=== PATIENT | female | born 1945 | race Caucasian/White ===

== ENCOUNTER 2016-12-20 15:42 | Inpatient (IN) | payer OTHER ==
[2016-12-20] VITALS (11 sets, daily range): BP systolic 108–170; BP diastolic 63–96; PULSE 88–130; TEMP 37.4–39.4; O2SAT 90–99; Ht 160 cm; Wt 63.8 kg
[~2016-12-20] VITALS: Ht 160 cm; Wt 63.8 kg
[~2016-12-20 15:42] MED LIST: AMLO-110 PO; CLX20 PO; DONE5TAB9 PO; LEVO100T7 PO; OMEP20CA59 PO; PRAV40TA2 PO
--- NOTE | 2016-12-20 16:04 | DIAGNOSTIC IMAGING REPORT ---
CT HEAD WITHOUT CONTRAST (CT) CLINICAL HISTORY: Acute change in mental status COMPARISON STUDY: 08/06/2016 TECHNIQUE: Axial CT of the brain is performed from the vertex to the skull base. IV contrast was not administered for this examination. CT DOSE: 1572.52 mGy.cm FINDINGS: No intra or extra-axial mass lesions are visualized. There is no CT evidence of acute cortical infarction. There is no evidence of midline shift. There is no acute hemorrhage. No calvarial fractures are visualized. There are patchy white matter hypodensities likely on a small vessel basis. There is no evidence of pathologic ventricular dilatation. There is no evidence of acute sinusitis IMPRESSION: No acute intracranial findings Electronically signed by: William Chavez M.D. 12/20/2016 4:02 PM Dictated Date/Time: 12/20/2016 4:00 PM
--- NOTE | 2016-12-20 16:17 | EMERGENCY ROOM VISIT NOTE ---
History Report prepared by Joy: Cindy Cleveland Under the Supervision of: Dr. Ibrahima Pathak D.O. First contact with patient: 15:43 Stated Complaint: UNRESPONSIVE, SVT, SEIZURE History of Present Illness The patient is a 71 year old female who presents to the Emergency Room via EMS with complaints of persistent unresponsiveness starting 2 hours ago. The patient 's was talking to her when she started shivering, would not open her eyes, and would not communicate. She also had diaphoresis. As per EMS, the patient had a fever of 103.4. She was in SVT with 160s-170s beats per minute. On the way to the Emergency Room, she started having seizure-like activity. She was given 1 mg of Ativan en-route to the Emergency Room. She did not display any stroke-like symptoms. As per , she is a current smoker. She does not drink alcohol. She is not on any blood thinners. The patient does not have a history of seizure, stroke, or heart attack. She has a history of dementia. The patient had abdominal surgery in March 2016 for ruptured ulcer and bowel obstruction. Her family members have had cold-like symptoms for the past few days. As per , the patient is do not resuscitate and do not intubate. HPI is limited secondary to unresponsiveness. Additional history was obtained as per EMS and family members. Source of History: family, EMS History Limited By: other (unresponsiveness) Onset: 2 hours ago Position: other (global) Quality: other (unresponsiveness) Timing: other (persistent) Review of Systems ROS is limited secondary to unresponsiveness. Past Medical & Surgical Medical Problems: (1) Ambulatory dysfunction (2) Anxiety (3) Change in mental state (4) CKD (chronic kidney disease) stage 3, GFR 30-59 ml/min (5) Dementia (6) Depression (7) Dyslipidemia (8) GERD (gastroesophageal reflux disease) (9) HTN (hypertension) (10) Hypothyroidism (11) Seizure (12) sepsis (13) Wound infection Surgical Problems: (1) S/P cholecystectomy (2) S/P knee replacement Family History Cancer Social History Smoking Status: Current Every Day Smoker Alcohol Use: none Drug Use: none Marital Status: Housing Status: lives with family Occupation Status: retired Current/Historical Medications Scheduled Bupropion HCl (Bupropion HCl Xl), 300 MG PO DAILY Citalopram Hydrobromide (Citalopram Hydrobromide), 40 MG PO DAILY Docusate Sodium (Docusate Sodium), 100 MG PO BID Donepezil HCl (Aricept), 5 MG PO QAM Levothyroxine Sodium (Levothyroxine Sodium), 100 MCG PO DAILY Omeprazole (Prilosec), 20 MG PO BID Ranitidine Hcl (Zantac), 150 MG PO BID Scheduled PRN Acetaminophen (Tylenol), 1,000 MG PO Q8 PRN for Pain Allergies Coded Allergies: Codeine (Verified Allergy, Unknown, 08/25/16) Physical Exam Vital Signs Date Time Temp Pulse Resp B/P Pulse Ox O2 Delivery O2 Flow Rate FiO2 12/20/16 16:31 113 28 138/85 98 Nasal Cannula 4.0 12/20/16 16:06 131 12/20/16 16:00 39.4 125 28 152/85 99 Nasal Cannula 4.0 Physical Exam GENERAL: Patient is well appearing and in no acute distress. HEENT: No acute trauma, normocephalic atraumatic, mucous membranes moist, no nasal congestion, no scleral icterus. NECK: No stridor, no adenopathy, no meningismus, trachea is midline. LUNGS: Coarse breath sounds bilaterally. HEART: Tachycardic rate and regular rhythm. No murmurs, rubs, gallops appreciated. ABDOMEN: Soft, nontender, bowel sounds positive, no masses appreciated, no peritonitis. No splenomegaly. BACK: No midline tenderness, no CVA tenderness EXTREMITIES: Normal motion all extremities, no cyanosis, no edema. NEUROLOGIC: No acute motor or sensory deficits, no focal weakness, cranial nerves grossly intact. GCS: 7. Withdraws to pain. Does not open eyes. Moves all four extremities. 5/5 strength in all four extremities. 2+ pulses in all four extremities. SKIN: No rash, no jaundice, no diaphoresis. Medical Decision & Procedures ER Provider Diagnostic Interpretation: X ray results and stated below per my interpretation and radiologist interpretation. CT results and stated below per my review and radiologist interpretation: CHEST ONE VIEW PORTABLE CLINICAL HISTORY: Sepsis SEIZURE, UNRESPONSIVE PATIENT. COMPARISON STUDY: 07/27/2016 FINDINGS: The heart is the upper limits of normal in size. There is mild interstitial thickening. There is no lobar consolidation. There are no pleural effusions. There is a chronic deformity the right fourth rib with mild expansion anteriorly.[ IMPRESSION: 1. Mild chronic interstitial thickening 2. No evidence of focal pulmonary consolidation. Electronically signed by: William Chavez M.D. 12/20/2016 4:23 PM Dictated Date/Time: 12/20/2016 4:[address] HEAD WITHOUT CONTRAST (CT) CLINICAL HISTORY: Acute change in mental status COMPARISON STUDY: 08/06/2016 TECHNIQUE: Axial CT of the brain is performed from the vertex to the skull base. IV contrast was not administered for this examination. CT DOSE: 1572.52 mGy.cm FINDINGS: No intra or extra-axial mass lesions are visualized. There is no CT evidence of acute cortical infarction. There is no evidence of midline shift. There is no acute hemorrhage. No calvarial fractures are visualized. There are patchy white matter hypodensities likely on a small vessel basis. There is no evidence of pathologic ventricular dilatation. There is no evidence of acute sinusitis IMPRESSION: No acute intracranial findings Electronically signed by: William Chavez M.D. 12/20/2016 4:02 PM Dictated Date/Time: 12/20/2016 4:00 PM Laboratory Results 12/20/16 16:05 Red Blood Count 4.18, Mean Corpuscular Volume 87.3, Mean Corpuscular Hemoglobin 29.9, Mean Corpuscular Hemoglobin Concent 34.2, Mean Platelet Volume 10.3, Neutrophils (%) (Auto) 88.6, Lymphocytes (%) (Auto) 8.6, Monocytes (%) (Auto) 2.2, Eosinophils (%) (Auto) 0.0, Basophils (%) (Auto) 0.3, Neutrophils # (Auto) 9.19, Lymphocytes # (Auto) 0.89, Monocytes # (Auto) 0.23, Eosinophils # (Auto) 0.00, Basophils # (Auto) 0.03 12/20/16 16:05 Test 12/20/16 15:59 12/20/16 16:05 12/20/16 16:10 12/20/16 16:14 White Blood Count 10.37 K/uL (4.8-10.8) Red Blood Count 4.18 M/uL (4.2-5.4) Hemoglobin 12.5 g/dL (12.0-16.0) Hematocrit 36.5 % (37-47) Mean Corpuscular Volume 87.3 fL (80-100) Mean Corpuscular Hemoglobin 29.9 pg (25-34) Mean Corpuscular Hemoglobin Concent 34.2 g/dl (32-36) Platelet Count 297 K/uL (130-400) Mean Platelet Volume 10.3 fL (7.4-10.4) Neutrophils (%) (Auto) 88.6 % Lymphocytes (%) (Auto) 8.6 % Monocytes (%) (Auto) 2.2 % Eosinophils (%) (Auto) 0.0 % Basophils (%) (Auto) 0.3 % Neutrophils # (Auto) 9.19 K/uL (1.4-6.5) Lymphocytes # (Auto) 0.89 K/uL (1.2-3.4) Monocytes # (Auto) 0.23 K/uL (0.11-0.59) Eosinophils # (Auto) 0.00 K/uL (0-0.5) Basophils # (Auto) 0.03 K/uL (0-0.2) RDW Standard Deviation 44.6 fL (36.4-46.3) RDW Coefficient of Variation 13.9 % (11.5-14.5) Immature Granulocyte % (Auto) 0.3 % Immature Granulocyte # (Auto) 0.03 K/uL (0.00-0.02) Erythrocyte Sedimentation Rate 26 mm/hr (0-21) Anion Gap 13.0 mmol/L (3-11) Estimated GFR () 39.6 Estimated GFR (Non- 34.2 BUN/Creatinine Ratio 14.9 (10-20) Calcium Level 9.6 mg/dl (8.5-10.1) Phosphorus Level 3.0 mg/dl (2.5-4.9) Magnesium Level 1.8 mg/dl (1.8-2.4) Total Bilirubin 0.4 mg/dl (0.2-1) Aspartate Amino Transf (AST/SGOT) 15 U/L (15-37) Alanine Aminotransferase (ALT/SGPT) 16 U/L (12-78) Alkaline Phosphatase 103 U/L (45-117) Total Creatine Kinase 32 U/L (26-192) Creatine Kinase MB 0.6 ng/ml (0.5-3.6) Creatine Kinase MB Ratio 1.9 (0-3.0) Troponin I 0.163 ng/ml (0-0.045) C-Reactive Protein < 0.29 mg/dl (0-0.29) Pro-B-Type Natriuretic Peptide 500 pg/ml (0-900) Total Protein 7.0 gm/dl (6.4-8.2) Albumin 3.5 gm/dl (3.4-5.0) Globulin 3.5 gm/dl (2.5-4.0) Albumin/Globulin Ratio 1.0 (0.9-2) Amylase Level 44 U/L (25-115) Lipase 108 U/L (73-393) Bedside Glucose 109 mg/dl (70-90) Bedside Lactic Acid Venous 3.57 mmol/L (0.90-1.70) Test 12/20/16 16:30 12/20/16 16:32 Influenza Type A Antigen Neg for Influ A (NEG) Influenza Type B Antigen Neg for Influ B (NEG) Arterial Blood pH 7.45 (7.35-7.45) Arterial Blood Partial Pressure CO2 35 mmHg (35-46) Arterial Blood Partial Pressure O2 56 mm/Hg (80-95) Arterial Blood HCO3 23 mmol/L (19-24) Arterial Blood Oxygen Saturation 88.7 % (90-95) Arterial Blood Base Excess -0.2 mEq/L (-9-1.8) Arterial Blood Gas Delivery 3L Michael Test POS (POS) Laboratory results as reviewed by me. Medications Administered Medications (Trade) Dose Ordered Sig/Aminata Route Start Time Stop Time Status Last Admin Dose Admin Piperacillin Sod/ Tazobactam Sod (Zosyn Iv) 4.5 gm STK-MED ONCE .ROUTE 12/20/16 16:50 12/20/16 16:51 DC 12/20/16 16:55 4.5 GM Procedure With questionable seizure, she is not a candidate for tPA. ECG Indication: other (unresponsiveness) Rate (beats per minute): 111 Findings: ST depression (v4-v6), other (Nonspecific intraventricular conduction delay; septal infarct age undetermined) Comparison ECG Date: August 25, 2016 Change: ST depression in lateral leads, sinus tachycardia, and septal infarct are new when compared to August 25, 2016. ED Course 1543: The patient was evaluated in room A01. A complete history and physical exam was performed. With questionable seizure, she is not a candidate for tPA. 1629: I discussed the patient's case with Dr. Edgar, sales development specialist from [facility]. 1631: Upon reevaluation, the patient is stable. Discussed results and treatment plan with the patient's family. They verbalized understanding and agreement with the treatment plan. I discussed the patient's case with Dr. Silva, from [facility]. The patient will be evaluated for further management. 1639: Zosyn IV 4.5 gm IV 1645: Azithromycin 500 mg/Dextrose 255 ml @ 125 mls/hr IV Medical Decision Differential diagnosis: Etiologies such as sepsis, UTI, pneumonia, metabolic, electrolyte abnormalities , cardiac sources, intracerebral event, toxicologic, neurologic, infection, hypoglycemia, as well as others were entertained. Patient is 71-year-old female with significant past medical history of dementia , hypothyroidism, ruptured gastrointestinal bleeding requiring exploratory laparotomy and gram patch oversewing. Today the patient had increasing lethargy and altered mental status per the , when he was finally unable to get any response from her he called EMS. Additional history from EMS: Upon arrival she was found to have a temperature of 103, and rigors. As a tank truck loader onto the stretcher when taking out to the ambulance she developed an SVT going from a normal sinus rhythm on the monitor in the 70s up to neural complex tachycardia of 170 180. As a flat finisher was attempting to obtain some adenosine the patient became rigid and had tonic-clonic like activity. This converted her from a narrow complex tachycardia rate of 170 is 180s down to a rate of the 120s which further appear to be a sinus tachycardia. 1 mg of Ativan was administered as the patient continued to clench her teeth, and there was loss of bladder control. Additional history from the she does not have a history of strokes, cardiac disease, nor seizures. In discussion with the patient's and the patient's son in event of cardiac arrest she would not want to be intubated nor undergo heroic measures for resuscitation. Accordingly have placed CODE STATUS is DNR/DNI. I discussed the risks and benefits of central venous access and arterial line in the patient with the patient's . He is agreeable to these risks and would allow a central line and arterial line. I have also discussed the risks and benefits of blood transfusions and she would be willing to accept blood in event she needs it. Upon arrival in the emergency department she would withdraw to pain and was making audible sounds. GCS 1 for eyes, motor 4, verbal 2 total 7. I obtained an emergent CT scan of the head, per my interpretation there was no obvious intra-cranial bleeding. She would not be a candidate for TPA given the seizure immediately prior. Further I do not believe that this is related to a stroke given that she has a fever most likely working diagnosis is sepsis. At this point she is receiving a 30 mL/kg bolus of normal saline, I am starting her on Zosyn 4.5 g IV for possible intra-abdominal process given the history of intra- abdominal abscess and wound infection following the bleeding gastric ulcer. Vancomycin 1.25 g (20 mg/kg load) given the history of a MRSA wound infection, and azithromycin 500 mg for possible atypical pneumonia. I reviewed a chest x- ray and EKG. At this case with Dr. Emery the desk pen set assembler as well as Dr. Sands hospitalist of the [facility] service. She does not appear to be at risk for healthcare associated infection, last time she was in the hospital and was reportedly back in August. I did not use a fluoroquinolone as I can lower the seizure threshold, I feel we are stuck using Zosyn given the concern for possible intra-abdominal process. At this point I am waiting for a creatinine to see if I can proceed with a contrasted scan of the abdomen. My review of prior records she has chronic kidney disease stage III. Consults Time Called: 1630 Consulting Physician: Dr. Silva, from [facility] Returned Call: [phone] I discussed the patient's case with Dr. Silva, from [facility]. Additional Consults: Time Called: 1622 Consulted Physician: Dr. Edgar, sales development specialist from [facility] Returned Call: [phone] Additional Comments: I discussed the patient's case with Dr. Edgar, sales development specialist from [facility]. Impression Primary Impression: Severe sepsis with acute organ dysfunction Additional Impressions: Encephalopathy acute Lactic acidemia Febrile disorder Febrile seizure Critical Care I have personally spent 45 minutes of critical care time in the direct management of this patient. This is a life/limb threatening event. This includes time spent evaluating patient, direct bedside care, chart review, placing orders, interpretation of diagnostic studies, discussion with consultants, patient, and family members, as well as other required patient management activities. This time is exclusive of all separately billable procedures, and teaching time and separate from and in addition to any other critical care service time. Scribe Attestation The scribes documentation has been prepared under my direction and personally reviewed by me in its entirety. I confirm that the note above accurately reflects all work, treatment, procedures, and medical decision making performed by me. Departure Information Dispostion Being Evaluated By Hospitalist Art Rascon M.D. (PCP) Problem Qualifiers
--- NOTE | 2016-12-20 16:24 | DIAGNOSTIC IMAGING REPORT ---
CHEST ONE VIEW PORTABLE CLINICAL HISTORY: Sepsis SEIZURE, UNRESPONSIVE PATIENT. COMPARISON STUDY: 07/27/2016 FINDINGS: The heart is the upper limits of normal in size. There is mild interstitial thickening. There is no lobar consolidation. There are no pleural effusions. There is a chronic deformity the right fourth rib with mild expansion anteriorly.[ IMPRESSION: 1. Mild chronic interstitial thickening 2. No evidence of focal pulmonary consolidation. Electronically signed by: William Chavez M.D. 12/20/2016 4:23 PM Dictated Date/Time: 12/20/2016 4:22 PM
[2016-12-20] MEDS ORDERED: PIPERACILLIN/TAZOBACTAM 4.5 GM/100ML D5W IV STA (16:39)
[2016-12-20 16:45] LABS: ARTERIAL BLD GAS O2 SATURATION 88.7 % (90-95); ARTERIAL BLOOD GAS BASE EXCESS -0.2 mEq/L (-9-1.8); ARTERIAL BLOOD GAS HCO3 23 mmol/L (19-24); ARTERIAL BLOOD GAS PO2 56 mm/Hg (80-95); ARTERIAL BLOOD GAS pH 7.45 (7.35-7.45)
[2016-12-20] MEDS ORDERED: LORAZEPAM 2 MG/ML 1 ML VIAL IV PRN (16:45)
[2016-12-20] MEDS ORDERED: ALBUT/IPRATROP 3MG/0.5MG NEB 3 ML VIAL INH PRN (16:45)
[2016-12-20] MEDS ORDERED: RANI150T3 PO (16:48)
[2016-12-20] MEDS ORDERED: CITA40TA4 PO (16:48)
[2016-12-20 16:50] LABS: ALLEN TEST POS (POS)
[2016-12-20] MEDS ORDERED: PIPERACILLIN/TAZOBACTAM 4.5 GM/100ML D5W ONE (16:50)
[2016-12-20] MEDS ORDERED: WLLXL300 PO (16:52)
[2016-12-20] MEDS ORDERED: DOCU100C31 PO (16:53)
[2016-12-20 16:55] LABS: O2 ADMINISTRATION 3L
[2016-12-20 16:58] LABS: BASO % 0.3 %; BASO ABS # 0.03 K/uL (0-0.2); COMPLETE YES; HEMATOCRIT 36.5 % (37-47); IG% 0.3 %; LYMPH % 8.6 %; LYMPH ABS # 0.89 K/uL (1.2-3.4); MEAN CELL VOLUME 87.3 fL (80-100); MEAN CORPUSCULAR HEMOGLOBIN 29.9 pg (25-34); MEAN CORPUSCULAR HGB CONC 34.2 g/dl (32-36); MEAN PLATELET VOLUME 10.3 fL (7.4-10.4); MONO % 2.2 %; NEUT % 88.6 %; PLATELET COUNT 297 K/uL (130-400); RED BLOOD COUNT 4.18 M/uL (4.2-5.4); WHITE BLOOD COUNT 10.37 K/uL (4.8-10.8)
[2016-12-20] MEDS ORDERED: ACET-1256 PO (17:02)
[2016-12-20 17:03] LABS: ALT/SGPT 16 U/L (12-78); AMYLASE 44 U/L (25-115); BLOOD UREA NITROGEN 22 mg/dl (7-18); BUN/CREATININE RATIO 14.9 (10-20); C-REACTIVE PROTEIN < 0.29 mg/dl (0-0.29); CALCIUM 9.6 mg/dl (8.5-10.1); CARBON DIOXIDE 22 mmol/L (21-32); CHLORIDE 105 mmol/L (98-107); GLUCOSE 104 mg/dl (70-99); MAGNESIUM 1.8 mg/dl (1.8-2.4); POTASSIUM 4.3 mmol/L (3.5-5.1); SODIUM 140 mmol/L (136-145)
[2016-12-20 17:10] LABS: URINE APPEARANCE CLEAR (CLEAR); URINE BILIRUBIN NEG (NEG); URINE COLOR YELLOW; URINE EPITHELIAL CELL AUTO 20-30 /lpf (0-5); URINE NITRITE NEG (NEG); URINE PH 7.5 (4.5-7.5); URINE SPECIFIC GRAVITY 1.018 (1.000-1.030); UROBILINOGEN NEG (NEG); ZZUR CULT IF INDIC CLEAN CATCH YES
[2016-12-20 17:12] LABS: ALKALINE PHOSPHATASE 103 U/L (45-117); AST/SGOT 15 U/L (15-37); CKMB/CK RATIO 1.9 (0-3.0)
[2016-12-20 17:14] LABS: PARTIAL THROMBOPLASTIN RATIO 0.7; PROTHROMBIN TIME (PATIENT) 10.5 SECONDS (9.0-12.0)
[2016-12-20] MEDS ORDERED: VANCOMYCIN INJ 1,250 MG in SODIUM CHLORIDE 0.9% 250ML 250 ML IV ONE (17:15)
--- NOTE | 2016-12-20 17:26 | History and Physical ---
History & Physical Date & Time of Service: Dec 20, 2016 at 17:26 Chief Complaint: Unresponsive, Svt, Seizure Primary Care Physician: Art Joshi M.D. History of Present Illness Source: family, hospital records, EMS 71 YO F with past medical Hx of Dementia , CKD stage 3 brought to ED -with seizure like activity History obtained form ER attending and Family members as pt was unable to provide any meaningful information due to changed mental status Pt was found to be unresponsive at Home by , was Febrile having chills and rigor EMS was called , pt was found to be in SVT -later developed seizure , IV Ativan was given pt remained obtunded in ED tachycardic, temp 39.4 Lab showed : mild elevation of ESR normal white count , Lactic acid of ~3 Cr 1.5 after transfer to ICU pt woke up moving all limbs , remains confused , unable to verbalize any discomfort Past Medical/Surgical History Medical Problems: (1) Anxiety Status: Chronic (2) CKD (chronic kidney disease) stage 3, GFR 30-59 ml/min Status: Chronic (3) Dementia Status: Chronic (4) Depression Status: Chronic (5) Dyslipidemia Status: Chronic (6) GERD (gastroesophageal reflux disease) Status: Chronic (7) HTN (hypertension) Status: Chronic (8) Hypothyroidism Status: Chronic Surgical Problems: (1) S/P cholecystectomy Status: Resolved (2) S/P knee replacement Status: Resolved Family History Cancer Blood Disorder Father Cancer Maternal Grandmother pancreatic ca Heart Disorder Mother VT 70 Lung Disorder Father emphysema Renal Hx Father Thyroid Disorder Mother Social History Smoking Status: Current Every Day Smoker Drug Use: none Marital Status: Housing status: lives with significant other Occupational Status: retired Immunizations History of Influenza Vaccine: No History of Tetanus Vaccine?: No History of Pneumococcal: Yes Pneumococcal Date: May 17, 2008 History of Hepatitis B Vaccine: No Multi-Drug Resistant Organisms History of MDRO: Yes Type of MDRO: MRSA Allergies Coded Allergies: Codeine (Verified Allergy, Unknown, 08/25/16) Home Medications Scheduled Bupropion HCl (Bupropion HCl Xl), 300 MG PO DAILY Citalopram Hydrobromide (Citalopram Hydrobromide), 40 MG PO DAILY Docusate Sodium (Docusate Sodium), 100 MG PO BID Donepezil HCl (Aricept), 5 MG PO QAM Levothyroxine Sodium (Levothyroxine Sodium), 100 MCG PO DAILY Omeprazole (Prilosec), 20 MG PO BID Ranitidine Hcl (Zantac), 150 MG PO BID Scheduled PRN Acetaminophen (Tylenol), 1,000 MG PO Q8 PRN for Pain Review of Systems UNABLE TO OBTAINED pt remains obtunded Physical Exam Vital Signs Date Time Temp Pulse Resp B/P Pulse Ox O2 Delivery O2 Flow Rate FiO2 12/20/16 16:31 113 28 138/85 98 Nasal Cannula 4.0 12/20/16 16:06 131 12/20/16 16:00 39.4 125 28 152/85 99 Nasal Cannula 4.0 General Appearance: + pertinent finding (confused , moving all limbs ) Head: normocephalic, atraumatic Respiratory/Chest: lungs clear, no respiratory distress Cardiovascular: + tachycardia Abdomen/GI: soft Extremities/Musculoskelatal: no pedal edema Neurologic/Psych: + disoriented, + pertinent finding (confused, agitated ) Diagnostics Laboratory Results Results Past 24 Hours Test 12/20/16 15:59 12/20/16 16:05 12/20/16 16:10 12/20/16 16:14 Range/Units White Blood Count 10.37 4.8-10.8 K/uL Red Blood Count 4.18 4.2-5.4 M/uL Hemoglobin 12.5 12.0-16.0 g/dL Hematocrit 36.5 37-47 % Mean Corpuscular Volume 87.3 80-100 fL Mean Corpuscular Hemoglobin 29.9 25-34 pg Mean Corpuscular Hemoglobin Concent 34.2 32-36 g/dl Platelet Count 297 130-400 K/uL Mean Platelet Volume 10.3 7.4-10.4 fL Neutrophils (%) (Auto) 88.6 % Lymphocytes (%) (Auto) 8.6 % Monocytes (%) (Auto) 2.2 % Eosinophils (%) (Auto) 0.0 % Basophils (%) (Auto) 0.3 % Neutrophils # (Auto) 9.19 1.4-6.5 K/uL Lymphocytes # (Auto) 0.89 1.2-3.4 K/uL Monocytes # (Auto) 0.23 0.11-0.59 K/uL Eosinophils # (Auto) 0.00 0-0.5 K/uL Basophils # (Auto) 0.03 0-0.2 K/uL RDW Standard Deviation 44.6 36.4-46.3 fL RDW Coefficient of Variation 13.9 11.5-14.5 % Immature Granulocyte % (Auto) 0.3 % Immature Granulocyte # (Auto) 0.03 0.00-0.02 K/uL Erythrocyte Sedimentation Rate 26 0-21 mm/hr Sodium Level 140 136-145 mmol/L Potassium Level 4.3 3.5-5.1 mmol/L Chloride Level 105 98-107 mmol/L Carbon Dioxide Level 22 21-32 mmol/L Anion Gap 13.0 3-11 mmol/L Blood Urea Nitrogen 22 7-18 mg/dl Creatinine 1.50 0.60-1.20 mg/dl Estimated GFR () 39.6 Estimated GFR (Non- 34.2 BUN/Creatinine Ratio 14.9 10-20 Random Glucose 104 70-99 mg/dl Calcium Level 9.6 8.5-10.1 mg/dl Phosphorus Level 3.0 2.5-4.9 mg/dl Magnesium Level 1.8 1.8-2.4 mg/dl Total Bilirubin 0.4 0.2-1 mg/dl Aspartate Amino Transf (AST/SGOT) 15 15-37 U/L Alanine Aminotransferase (ALT/SGPT) 16 12-78 U/L Alkaline Phosphatase 103 45-117 U/L Total Creatine Kinase 32 26-192 U/L Creatine Kinase MB 0.6 0.5-3.6 ng/ml Creatine Kinase MB Ratio 1.9 0-3.0 Troponin I 0.163 0-0.045 ng/ml C-Reactive Protein < 0.29 0-0.29 mg/dl Pro-B-Type Natriuretic Peptide 500 0-900 pg/ml Total Protein 7.0 6.4-8.2 gm/dl Albumin 3.5 3.4-5.0 gm/dl Globulin 3.5 2.5-4.0 gm/dl Albumin/Globulin Ratio 1.0 0.9-2 Amylase Level 44 25-115 U/L Lipase 108 73-393 U/L Bedside Glucose 109 70-90 mg/dl Bedside Lactic Acid Venous 3.57 0.90-1.70 mmol/L Test 12/20/16 16:30 12/20/16 16:32 Range/Units Influenza Type A Antigen Neg for Influ A NEG Influenza Type B Antigen Neg for Influ B NEG Arterial Blood pH 7.45 7.35-7.45 Arterial Blood Partial Pressure CO2 35 35-46 mmHg Arterial Blood Partial Pressure O2 56 80-95 mm/Hg Arterial Blood HCO3 23 19-24 mmol/L Arterial Blood Oxygen Saturation 88.7 90-95 % Arterial Blood Base Excess -0.2 -9-1.8 mEq/L Arterial Blood Gas Delivery 3L Michael Test POS POS Microbiology Results 12/20/16 Blood Culture, Received Pending 12/20/16 Blood Culture, Received Pending 12/20/16 MRSA DNA Surveillance Screen, Annabel Batch Pending 12/20/16 Gram Stain, Annabel Batch Pending 12/20/16 Sputum Culture, Annabel Batch Pending 12/20/16 Urine Culture, Annabel Batch Pending Diagnostic Radiology CT HEAD WITHOUT CONTRAST (CT) CLINICAL HISTORY: Acute change in mental status COMPARISON STUDY: 08/06/2016 TECHNIQUE: Axial CT of the brain is performed from the vertex to the skull IMPRESSION: No acute intracranial findings CHEST ONE VIEW PORTABLE CLINICAL HISTORY: Sepsis SEIZURE, UNRESPONSIVE PATIENT. COMPARISON STUDY: 07/27/2016 FINDINGS: The heart is the upper limits of normal in size. There is mild interstitial thickening. There is no lobar consolidation. There are no pleural effusions. There is a chronic deformity the right fourth rib with mild expansion anteriorly.[ IMPRESSION: 1. Mild chronic interstitial thickening 2. No evidence of focal pulmonary consolidation. Impression Assessment and Plan ALTERED MENTAL STATUS /QUESTIONABLE SEIZURE not sure of the etiology pt has baseline dementia -as per family was Ok yesterday evening no sick contact at home -CT head negative for CVA need to R/o infectious cause LP will be performed by Service Agent in ICU EEG ordered Neurology eval requested cont to monitor FEVER : blood /urine culture ordered UA -moderate leukocyte esterase follow lumber puncture report Flu Ag and PCR negative for Influenza A and B empiric Abx vancomycin /Zithromax ordered by Service Agent HX OF DEMENTIA presents with acute change in mental status possible metabolic encephalopathy due to infection need to R/O Sz KAT ON CKD STAGE 3 : due to dehydration , infection IVF follow PRP avoid Nephrotoxins /NSAIDS /contrast studies FULL CODE DISPOSITION : lives at home with family will need PT/OT eval when medically stable Patient will be followed by Dr Savage moy tomorrow 12/21/16 VTE Prophylaxis VTE Risk Assessment Done? Y/N: Yes Risk Level: Moderate
[2016-12-20] MEDS ORDERED: LORAZEPAM INJ 1 MG in SYRINGE 0.5 ML IV PRN (17:30)
[2016-12-20 17:32] LABS: MANUAL MICROSCOPIC REQUIRED? NO; REVIEW REQ? NO; SULFASALICYLIC ACID NEG (NEG)
[2016-12-20] MEDS ORDERED: MIDAZOLAM HCL 1 MG/ML 2ML VIAL ONE (17:45)
[2016-12-20] MEDS ORDERED: MIDAZOLAM HCL 5 MG/ML 1 ML VIAL IV PRN (17:45)
[2016-12-20] MEDS ORDERED: LIDOCAINE HCL 1% 20 ML VIAL ONE (18:00)
[2016-12-20 18:13] LABS: INFLUENZA A PCR Neg for Influ A (NEG); INFLUENZA B PCR Neg for Influ B (NEG)
[2016-12-20] MEDS ORDERED: AZITHROMYCIN IV 500 MG in DEXTROSE 5% 250ML 250 ML IV ONE (18:30)
--- NOTE | 2016-12-20 18:52 | Critical Care Consultation ---
Critical Care Consultation Date of Consultation: Dec 20, 2016. Attending Physician: Rich Wan MD Reason for Consultation: sepsis. History of Present Illness Dear Dr. Silva: Thank you for your kind referral of this 71 yo female to the critical care service. she has been living with her who noticed today that she was unresponsive to his verbal commands, he called the EMS and brought her to the ED. the pt does not give any hx due to advanced dementia. in the ED, the pt was in SVt and she did have seizure like activity , the pt is not known to have hx of seizure but has a hx of tremor. the pt also was found to have a fever up to 103 and elevated lactic acid, she was started on IVF and broad spec abx. the pt was admitted to the ICu , however, in discussion with the family the pt wishes were DNR and DNI and the family confirmed it and they do not want to reverse it. they do not wish to have a Dc shock should she go to another episode of SVT. according to the family she has been having occasional cough, not unusual to her and no NV although she did vomit in the ICU once. no diarrhea reported, no abdominal pain, and she had poor appetite to begin with. the rest of her ROS was unremarkable. Past Medical/Surgical History CKD III, advanced Dementia, HTN, HLP, GERD with perforated ulcer , s/p surgical repair in March 2016, DJD s/p lumbar fusion , TKR, Hypothyroidism , active smoker and severe left artery stenosis. Family History Cancer Social History Smoking Status: Current Every Day Smoker Drug Use: none Marital Status: Housing Status: lives with family Occupation Status: retired Allergies Coded Allergies: Codeine (Verified Allergy, Unknown, 08/25/16) Home Medications Scheduled Bupropion HCl (Bupropion HCl Xl), 300 MG PO DAILY Citalopram Hydrobromide (Citalopram Hydrobromide), 40 MG PO DAILY Docusate Sodium (Docusate Sodium), 100 MG PO BID Donepezil HCl (Aricept), 5 MG PO QAM Levothyroxine Sodium (Levothyroxine Sodium), 100 MCG PO DAILY Omeprazole (Prilosec), 20 MG PO BID Ranitidine Hcl (Zantac), 150 MG PO BID Scheduled PRN Acetaminophen (Tylenol), 1,000 MG PO Q8 PRN for Pain Current Inpatient Medications Current Inpatient Medications Medications (Trade) Dose Ordered Sig/Amniata Route Start Time Stop Time Status Last Admin Dose Admin Lorazepam 1 mg 1 mg Q15M PRN IV 12/20/16 16:45 01/19/17 16:44 Pantoprazole Sodium/Syringe (Protonix Inj/ Syringe) 10 ml @ 5 mls/min DAILY@1100 IV 12/21/16 11:00 01/20/17 10:59 Albuterol/ Ipratropium 3 ml 3 ml Q4 PRN INH 12/20/16 16:45 01/19/17 16:44 Azithromycin 500 mg/Dextrose 255 ml @ 125 mls/hr ONE ONCE IV 12/20/16 18:30 12/20/16 20:32 12/20/16 18:10 125 MLS/HR Vancomycin HCl 1250 mg/Sodium Chloride 275 ml @ 125 mls/hr 1715 ONCE IV 12/20/16 17:15 12/20/16 19:26 12/20/16 18:09 125 MLS/HR Lorazepam/Syringe (Ativan Inj/ Syringe) 1 ml @ 1 mls/min Q15M PRN IV 12/20/16 17:30 01/19/17 17:29 Midazolam HCl (Versed Inj) 2 mg ONE PRN IV 12/20/16 17:45 12/22/16 17:44 Review of Systems Constitutional: + fever Respiratory: + cough Cardiovascular: + problem reported (no chest pain) Abdomen: + problem reported (no GI symptoms except one episode og cough. ), + vomiting Neurologic: + memory loss Psychiatric: + depression symptoms Physical Exam Date Time Temp Pulse Resp B/P Pulse Ox O2 Delivery O2 Flow Rate FiO2 12/20/16 17:51 39.2 104 21 170/76 98 Nasal Cannula 2.0 12/20/16 16:31 113 28 138/85 98 Nasal Cannula 4.0 12/20/16 16:06 131 12/20/16 16:00 39.4 125 28 152/85 99 Nasal Cannula 4.0 General Appearance: no apparent distress Head: normocephalic Eyes: normal inspection ENT: normal ENT inspection Respiratory/Chest: chest non-tender, lungs clear, normal breath sounds Cardiovascular: regular rate, rhythm Abdomen/GI: normal bowel sounds Extremities/Musculoskelatal: no pedal edema Laboratory Results Last 24 Hours Test 12/20/16 16:05 12/20/16 16:10 12/20/16 16:14 12/20/16 16:30 White Blood Count 10.37 K/uL Red Blood Count 4.18 M/uL Hemoglobin 12.5 g/dL Hematocrit 36.5 % Mean Corpuscular Volume 87.3 fL Mean Corpuscular Hemoglobin 29.9 pg Mean Corpuscular Hemoglobin Concent 34.2 g/dl Platelet Count 297 K/uL Mean Platelet Volume 10.3 fL Neutrophils (%) (Auto) 88.6 % Lymphocytes (%) (Auto) 8.6 % Monocytes (%) (Auto) 2.2 % Eosinophils (%) (Auto) 0.0 % Basophils (%) (Auto) 0.3 % Neutrophils # (Auto) 9.19 K/uL Lymphocytes # (Auto) 0.89 K/uL Monocytes # (Auto) 0.23 K/uL Eosinophils # (Auto) 0.00 K/uL Basophils # (Auto) 0.03 K/uL RDW Standard Deviation 44.6 fL RDW Coefficient of Variation 13.9 % Immature Granulocyte % (Auto) 0.3 % Immature Granulocyte # (Auto) 0.03 K/uL Erythrocyte Sedimentation Rate 26 mm/hr Prothrombin Time 10.5 SECONDS Prothromb Time International Ratio 1.0 Activated Partial Thromboplast Time 18.1 SECONDS Partial Thromboplastin Ratio 0.7 Sodium Level 140 mmol/L Potassium Level 4.3 mmol/L Chloride Level 105 mmol/L Carbon Dioxide Level 22 mmol/L Anion Gap 13.0 mmol/L Blood Urea Nitrogen 22 mg/dl Creatinine 1.50 mg/dl Estimated GFR () 39.6 Estimated GFR (Non- 34.2 BUN/Creatinine Ratio 14.9 Random Glucose 104 mg/dl Calcium Level 9.6 mg/dl Phosphorus Level 3.0 mg/dl Magnesium Level 1.8 mg/dl Total Bilirubin 0.4 mg/dl Aspartate Amino Transf (AST/SGOT) 15 U/L Alanine Aminotransferase (ALT/SGPT) 16 U/L Alkaline Phosphatase 103 U/L Total Creatine Kinase 32 U/L Creatine Kinase MB 0.6 ng/ml Creatine Kinase MB Ratio 1.9 Troponin I 0.163 ng/ml C-Reactive Protein < 0.29 mg/dl Pro-B-Type Natriuretic Peptide 500 pg/ml Total Protein 7.0 gm/dl Albumin 3.5 gm/dl Globulin 3.5 gm/dl Albumin/Globulin Ratio 1.0 Amylase Level 44 U/L Lipase 108 U/L Procalcitonin < 0.05 ng/mL Bedside Glucose 109 mg/dl Bedside Lactic Acid Venous 3.57 mmol/L Urine Color YELLOW Urine Appearance CLEAR Urine pH 7.5 Urine Specific [place] 1.018 Urine Protein NEG Urine Glucose (UA) NEG Urine Ketones NEG Urine Occult Blood NEG Urine Nitrite NEG Urine Bilirubin NEG Urine Urobilinogen NEG Urine Leukocyte Esterase MODERATE Urine WBC (Auto) >30 /hpf Urine RBC (Auto) 0-4 /hpf Urine Hyaline Casts (Auto) 10-30 /lpf Urine Epithelial Cells (Auto) 20-30 /lpf Urine Bacteria (Auto) NEG Influenza Type A (RT-PCR) Neg for Influ A Influenza Type A Antigen Neg for Influ A Influenza Type B Antigen Neg for Influ B Influenza Type B (RT-PCR) Neg for Influ B Test 12/20/16 16:32 Arterial Blood pH 7.45 Arterial Blood Partial Pressure CO2 35 mmHg Arterial Blood Partial Pressure O2 56 mm/Hg Arterial Blood HCO3 23 mmol/L Arterial Blood Oxygen Saturation 88.7 % Arterial Blood Base Excess -0.2 mEq/L Arterial Blood Gas Delivery 3L Michael Test POS Diagnostic Results CXR reviewed showing old rib fracture on the right. no infiltrate, chronic changes likely COPD with hyperinflated lungs. other labs are still pending. Assessment & Plan #1 sepsis, source is [place]. viral syndrome is highly likely given normal WBC , but left shift presented, UA is pending and CXR could blossom an infiltrate once the pt is hydrated. Ischemic colitis is less likely, however, the pt is active smoker and has renal artery stenosis and she is most certainly has abnormal splanchnic circulation. #2 severe dementia precluding aggressive procedures, LP was attempted but it is near impossible to perform without aggressive sedation , given lido topical and 2 mg of versed and unable to control the pt agitation. #3 HTN. #4 possible acute bronchitis rather than pneumonia, I will hydrate the pt then repeat the CXR in am. #5 CKD III. #6 active smoker. #7 Deprssion on Bupropion ( which can cause fever with serotonin release). Plan: #1 broad spec Abx. agree with your management. #2 IVF. saline at 100 ml/hr should be adequate. #3 as mentioned above , LP was attempted and failed due to the pt extreme agitation . #4 the pt is DNR and DNI. #5 she has two peripheral IV's and I will hold off on placing CVL, given the difficulty performing procedure due to severe dementia and incooperation. #6 continue current meds. #7 watch her fever curve. #8 the urine just returned positive sediment. ( Zosyn should be adequate to control it). #9 watch her renal function given the TRIP on the left. #10 prophylaxis. #11 repeat CXR in am. discussed with the family in details. discussed with the staff in details. CCT 90 min including all the above.
[2016-12-20] MEDS: SODIUM CHLORIDE 0.9% 1000ML 1,000 ML IV SCH (19:11)
[2016-12-20] MEDS ORDERED: ACETAMINOPHEN 325 MG TAB PO PRN (19:15)
[2016-12-20] MEDS ORDERED: ACETAMINOPHEN 650 MG SUPP PR PRN (19:15)
[2016-12-20] MEDS ORDERED: VANCOMYCIN CONSULT ACTIVE PRN (19:45)
[2016-12-20] MEDS ORDERED: PIPERACILL/TAZOBAC CONSULT ACTIVE PRN (19:45)
--- NOTE | 2016-12-20 19:54 | Pharmacy Progress Note ---
Pharmacy Antibiotic Consult Date of Service: Dec 20, 2016. Pharmacy Dosing Scope Pharmacy is consulted to initiate Vancomycin and Zosyn IV dosing therapy, order appropriate labs and adjust drug dose/frequency. Subjective The patient is a 71 year old female admitted on Dec 20, 2016 at 16:29 with sepsis likely genito-urinary source Objective Height (Feet): 5 Height (Inches): 3.00 Weight (Kilograms): 64.300 Lab Results (24hrs): Laboratory Tests Test 12/20/16 16:05 BUN/Creatinine Ratio 14.9 Blood Urea Nitrogen 22 mg/dl Creatinine 1.50 mg/dl White Blood Count 10.37 K/uL Red Blood Count 4.18 M/uL Hemoglobin 12.5 g/dL Hematocrit 36.5 % Mean Corpuscular Volume 87.3 fL Mean Corpuscular Hemoglobin 29.9 pg Mean Corpuscular Hemoglobin Concent 34.2 g/dl Platelet Count 297 K/uL Mean Platelet Volume 10.3 fL Neutrophils (%) (Auto) 88.6 % Lymphocytes (%) (Auto) 8.6 % Monocytes (%) (Auto) 2.2 % Eosinophils (%) (Auto) 0.0 % Basophils (%) (Auto) 0.3 % Neutrophils # (Auto) 9.19 K/uL Lymphocytes # (Auto) 0.89 K/uL Monocytes # (Auto) 0.23 K/uL Eosinophils # (Auto) 0.00 K/uL Basophils # (Auto) 0.03 K/uL Micro Results: Item Value Date Time MRSA DNA Surveillance Screen - Final Complete 12/20/16 1744 Nasal Specimen Negative for MRSA by DNA Probe Blood Culture Received 12/20/16 1634 Blood Pending Urine Culture Received 12/20/16 1630 Urine , Clean Catch Pending Blood Culture Received 12/20/16 1605 Blood Pending Urine Culture Annabel Batch 12/20/16 1559 Urine,Catheterized Pending Gram Stain Annabel Batch 12/20/16 1559 Sputum Expectorated Sputum Pending Recent Pertinent Medications Item Value Date Time Azithromycin 500 255 ml @ 125 mls/hr 12/20/16 1830 mg/Dextrose ONE ONCE/IV 12/20/16 1810 Vancomycin HCl 275 ml @ 125 mls/hr 12/20/16 1715 1250 mg/Sodium 1715 ONCE/IV 12/20/16 1809 Chloride Piperacillin Sod/ 4.5 gm 12/20/16 1650 Tazobactam Sod .STK-MED ONCE/.ROUTE 12/20/16 1655 (Zosyn Iv) Assessment & Plan Empiric IV Vancomycin/Zosyn for sepsis, likely source. H/O CKD III Loading dose: Vancomycin 1250 mg (~`9.4 mg/kg) IV X 1 dose in the Emergency Department then: Vancomycin 1000 mg (~15.5 mg/kg) IV every 24 hours. Goal peak level estimate: between 30 - 40 mcg/mL. Goal trough level estimate: between 15 - 20 mcg/mL for sepsis indication Vancomycin trough level has been ordered for: 12/23/2016 prior to the noon dose. Zosyn per protocol for creatinine clearance greater than 20 mL/minutes - Zosyn 3.375 IV q8 hours via extended infusion Pharmacy will continue to follow and will adjust dose/frequency as necessary. Thank you
[2016-12-20] MEDS: HEPARIN SOD 5000 UNIT/0.5 ML CARP SQ SCH (20:38)
[2016-12-20] MEDS: PIPERACILL/TAZOBAC IV 3.375 GM in DEXTROSE 5% 100ML 100 ML IV SCH (23:28)
[2016-12-21] VITALS (14 sets, daily range): BP systolic 101–142; BP diastolic 47–75; PULSE 59–76; TEMP 36.4–37.3; O2SAT 92–97
[2016-12-21 01:00] LABS: CKMB/CK RATIO 1.4 (0-3.0)
[2016-12-21] MEDS: SODIUM CHLORIDE 0.9% 1000ML 1,000 ML IV SCH ×2 (05:41→11:21)
[2016-12-21 05:43] LABS: BASO % 0.3 %; BASO ABS # 0.03 K/uL (0-0.2); COMPLETE YES; EOS % 0.2 %; HEMATOCRIT 34.4 % (37-47); IG% 0.2 %; LYMPH % 18.8 %; LYMPH ABS # 1.87 K/uL (1.2-3.4); MEAN CELL VOLUME 87.1 fL (80-100); MEAN CORPUSCULAR HEMOGLOBIN 29.4 pg (25-34); MEAN CORPUSCULAR HGB CONC 33.7 g/dl (32-36); MEAN PLATELET VOLUME 10.4 fL (7.4-10.4); MONO % 8.1 %; NEUT % 72.4 %; PLATELET COUNT 240 K/uL (130-400); RED BLOOD COUNT 3.95 M/uL (4.2-5.4); WHITE BLOOD COUNT 9.93 K/uL (4.8-10.8)
[2016-12-21 06:20] LABS: BUN/CREATININE RATIO 15.3 (10-20); CALCIUM 9.6 mg/dl (8.5-10.1); CREATININE 1.3 mg/dl (0.60-1.20); MAGNESIUM 1.9 mg/dl (1.8-2.4); PHOSPHORUS 3.1 mg/dl (2.5-4.9); POTASSIUM 3.5 mmol/L (3.5-5.1)
[2016-12-21] MEDS: HEPARIN SOD 5000 UNIT/0.5 ML CARP SQ SCH ×2 (07:42→20:41)
[2016-12-21] MEDS: PIPERACILL/TAZOBAC IV 3.375 GM in DEXTROSE 5% 100ML 100 ML IV SCH ×3 (07:56→23:30)
--- NOTE | 2016-12-21 08:25 | DIAGNOSTIC IMAGING REPORT ---
CHEST ONE VIEW PORTABLE HISTORY: follow up sepsis, possible blossoming pneumonia COMPARISON: Chest 12/20/2016. FINDINGS: No pneumothorax. No pleural effusions. The heart is stable in size. Mild diffuse interstitial thickening which is likely chronic. No new focal lung consolidations to suggest pneumonia. Old, healed right-sided rib fractures. IMPRESSION: No significant change compared to the prior study. No acute process. Electronically signed by: Jed Goodman M.D. 12/21/2016 8:24 AM Dictated Date/Time: 12/21/2016 8:23 AM
[2016-12-21] MEDS ORDERED: AZITHROMYCIN IV 250 MG in DEXTROSE 5% 250ML 250 ML IV SCH (09:00)
--- NOTE | 2016-12-21 09:19 | Critical Care Progress Note ---
Critical Care Progress Note Date of Service Dec 21, 2016. Attending Dr. Edgar Subjective improved overnight, fully awake, and following commands this am. Objective she denies any pain, no NV no abdominal pain no diarrhea, Assessment & Plan #1 sepsis. #2 UTI. #3 Dementia. #4 Hypothyroidism. #5 DJD. 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 Plan: #1 continue Zosyn given her recent admission to the hospital. #2 may stop Vanco if no evidence of MRSA on this admission. #3 continue IVF. #4 Oral Intake. #5 Prophylaxis for DVT and GI. #6 check urine and blood cultures, pending. #7 resume her home oral meds. $8 discussed with the staff on rounds. #9 disposition to the regular floor if ok with the Hospitalist service. CCT 35 min. Data Medications: Current Inpatient Medications Medications (Trade) Dose Ordered Sig/Aminata Route Start Time Stop Time Status Last Admin Dose Admin Lorazepam 1 mg 1 mg Q15M PRN IV 12/20/16 16:45 01/19/17 16:44 Pantoprazole Sodium/Syringe (Protonix Inj/ Syringe) 10 ml @ 5 mls/min DAILY@1100 IV 12/21/16 11:00 01/20/17 10:59 12/21/16 07:41 5 MLS/MIN Albuterol/ Ipratropium 3 ml 3 ml Q4 PRN INH 12/20/16 16:45 01/19/17 16:44 Lorazepam/Syringe (Ativan Inj/ Syringe) 1 ml @ 1 mls/min Q15M PRN IV 12/20/16 17:30 01/19/17 17:29 Midazolam HCl 2 mg 2 mg ONE PRN IV 12/20/16 17:45 12/22/16 17:44 Sodium Chloride 1,000 ml @ 100 mls/hr Q10H IV 12/20/16 18:45 01/19/17 18:44 12/21/16 05:41 100 MLS/HR Piperacillin Sod/ Tazobactam Sod 3.375 gm/Dextrose 115 ml @ 28.75 mls/ hr Q8@0000,0800,1600 IV 12/21/16 00:00 12/31/16 00:00 12/21/16 07:56 28.75 MLS/HR Vancomycin HCl 1000 mg/Sodium Chloride 270 ml @ 125 mls/hr DAILY@1200 IV 12/21/16 12:00 12/30/16 11:59 Azithromycin/ Dextrose (Zithromax IV/D5 250ml) 252.5 ml @ 125 mls/hr DAILY IV 12/21/16 09:00 12/28/16 08:59 12/21/16 07:41 125 MLS/HR Acetaminophen (Tylenol Tab) 650 mg Q4H PRN PO 12/20/16 19:15 01/19/17 19:14 Acetaminophen (Tylenol Supp) 650 mg Q4H PRN VA 12/20/16 19:15 01/19/17 19:14 12/20/16 19:31 650 MG Heparin Sodium (Porcine) (Heparin Sq 5000 Unit/0.5ml) 5,000 unit Q12 SQ 12/20/16 21:00 01/19/17 20:59 12/21/16 07:42 5,000 UNIT Piperacillin Sod/ Tazobactam Sod (Consult) 1 ea UD PRN N/A 12/20/16 19:45 12/30/16 19:44 Vancomycin HCl (Consult) 1 ea UD PRN N/A 12/20/16 19:45 12/30/16 19:44 I & O: 24-Hour Column 12/21/16 07:59 Intake Total 1614 ml Output Total 1350 ml Balance 264 ml Vital Signs: Date Time Temp Pulse Resp B/P Pulse Ox O2 Delivery O2 Flow Rate FiO2 12/21/16 06:00 62 17 124/63 94 Room Air 12/21/16 04:00 95 Room Air 12/21/16 04:00 37.0 65 19 114/57 95 Room Air 12/21/16 02:00 70 18 111/64 92 Room Air 12/21/16 00:00 37.3 76 22 115/64 93 Room Air 12/20/16 23:59 94 Room Air 12/20/16 22:00 37.4 88 17 122/63 94 Room Air 12/20/16 20:30 38.7 12/20/16 20:00 39.4 105 17 108/73 95 Room Air 12/20/16 20:00 95 Room Air 12/20/16 18:08 93 19 141/75 99 Nasal Cannula 2.0 12/20/16 18:03 100 27 152/76 95 Nasal Cannula 2.0 12/20/16 17:58 103 22 157/81 96 Nasal Cannula 2.0 12/20/16 17:54 104 15 139/86 98 Nasal Cannula 2.0 12/20/16 17:53 130 19 143/96 12/20/16 17:51 39.2 104 21 170/76 98 Nasal Cannula 2.0 12/20/16 17:33 39.2 95 17 170/76 90 Nasal Cannula 2.0 12/20/16 16:31 113 28 138/85 98 Nasal Cannula 4.0 12/20/16 16:06 131 12/20/16 16:00 39.4 125 28 152/85 99 Nasal Cannula 4.0 S1S2 RRR. lungs are clear. abdomen is benign. no edema. neuro is intact for her age. Laboratory Results: Last 24 Hours Test 12/20/16 16:05 12/20/16 16:10 12/20/16 16:14 12/20/16 16:30 White Blood Count 10.37 K/uL Red Blood Count 4.18 M/uL Hemoglobin 12.5 g/dL Hematocrit 36.5 % Mean Corpuscular Volume 87.3 fL Mean Corpuscular Hemoglobin 29.9 pg Mean Corpuscular Hemoglobin Concent 34.2 g/dl Platelet Count 297 K/uL Mean Platelet Volume 10.3 fL Neutrophils (%) (Auto) 88.6 % Lymphocytes (%) (Auto) 8.6 % Monocytes (%) (Auto) 2.2 % Eosinophils (%) (Auto) 0.0 % Basophils (%) (Auto) 0.3 % Neutrophils # (Auto) 9.19 K/uL Lymphocytes # (Auto) 0.89 K/uL Monocytes # (Auto) 0.23 K/uL Eosinophils # (Auto) 0.00 K/uL Basophils # (Auto) 0.03 K/uL RDW Standard Deviation 44.6 fL RDW Coefficient of Variation 13.9 % Immature Granulocyte % (Auto) 0.3 % Immature Granulocyte # (Auto) 0.03 K/uL Erythrocyte Sedimentation Rate 26 mm/hr Prothrombin Time 10.5 SECONDS Prothromb Time International Ratio 1.0 Activated Partial Thromboplast Time 18.1 SECONDS Partial Thromboplastin Ratio 0.7 Sodium Level 140 mmol/L Potassium Level 4.3 mmol/L Chloride Level 105 mmol/L Carbon Dioxide Level 22 mmol/L Anion Gap 13.0 mmol/L Blood Urea Nitrogen 22 mg/dl Creatinine 1.50 mg/dl Estimated GFR () 39.6 Estimated GFR (Non- 34.2 BUN/Creatinine Ratio 14.9 Random Glucose 104 mg/dl Calcium Level 9.6 mg/dl Phosphorus Level 3.0 mg/dl Magnesium Level 1.8 mg/dl Total Bilirubin 0.4 mg/dl Aspartate Amino Transf (AST/SGOT) 15 U/L Alanine Aminotransferase (ALT/SGPT) 16 U/L Alkaline Phosphatase 103 U/L Total Creatine Kinase 32 U/L Creatine Kinase MB 0.6 ng/ml Creatine Kinase MB Ratio 1.9 Troponin I 0.163 ng/ml C-Reactive Protein < 0.29 mg/dl Pro-B-Type Natriuretic Peptide 500 pg/ml Total Protein 7.0 gm/dl Albumin 3.5 gm/dl Globulin 3.5 gm/dl Albumin/Globulin Ratio 1.0 Amylase Level 44 U/L Lipase 108 U/L Procalcitonin < 0.05 ng/mL Bedside Glucose 109 mg/dl Bedside Lactic Acid Venous 3.57 mmol/L Urine Color YELLOW Urine Appearance CLEAR Urine pH 7.5 Urine Specific [place] 1.018 Urine Protein NEG Urine Glucose (UA) NEG Urine Ketones NEG Urine Occult Blood NEG Urine Nitrite NEG Urine Bilirubin NEG Urine Urobilinogen NEG Urine Leukocyte Esterase MODERATE Urine WBC (Auto) >30 /hpf Urine RBC (Auto) 0-4 /hpf Urine Hyaline Casts (Auto) 10-30 /lpf Urine Epithelial Cells (Auto) 20-30 /lpf Urine Bacteria (Auto) NEG Influenza Type A (RT-PCR) Neg for Influ A Influenza Type A Antigen Neg for Influ A Influenza Type B Antigen Neg for Influ B Influenza Type B (RT-PCR) Neg for Influ B Test 12/20/16 16:32 12/20/16 20:41 12/20/16 21:39 12/21/16 00:32 Arterial Blood pH 7.45 Arterial Blood Partial Pressure CO2 35 mmHg Arterial Blood Partial Pressure O2 56 mm/Hg Arterial Blood HCO3 23 mmol/L Arterial Blood Oxygen Saturation 88.7 % Arterial Blood Base Excess -0.2 mEq/L Arterial Blood Gas Delivery 3L Michael Test POS Bedside Glucose 101 mg/dl Lactic Acid Level 0.5 mmol/L Total Creatine Kinase 256 U/L Creatine Kinase MB 3.7 ng/ml Creatine Kinase MB Ratio 1.4 Test 12/21/16 04:36 12/21/16 08:36 12/21/16 08:45 White Blood Count 9.93 K/uL Red Blood Count 3.95 M/uL Hemoglobin 11.6 g/dL Hematocrit 34.4 % Mean Corpuscular Volume 87.1 fL Mean Corpuscular Hemoglobin 29.4 pg Mean Corpuscular Hemoglobin Concent 33.7 g/dl Platelet Count 240 K/uL Mean Platelet Volume 10.4 fL Neutrophils (%) (Auto) 72.4 % Lymphocytes (%) (Auto) 18.8 % Monocytes (%) (Auto) 8.1 % Eosinophils (%) (Auto) 0.2 % Basophils (%) (Auto) 0.3 % Neutrophils # (Auto) 7.19 K/uL Lymphocytes # (Auto) 1.87 K/uL Monocytes # (Auto) 0.80 K/uL Eosinophils # (Auto) 0.02 K/uL Basophils # (Auto) 0.03 K/uL RDW Standard Deviation 44.6 fL RDW Coefficient of Variation 13.9 % Immature Granulocyte % (Auto) 0.2 % Immature Granulocyte # (Auto) 0.02 K/uL Sodium Level 141 mmol/L Potassium Level 3.5 mmol/L Chloride Level 108 mmol/L Carbon Dioxide Level 23 mmol/L Anion Gap 10.0 mmol/L Blood Urea Nitrogen 20 mg/dl Creatinine 1.30 mg/dl Est Creatinine Clear Calc Drug Dose 34.6 ml/min Estimated GFR () 47.1 Estimated GFR (Non- 40.7 BUN/Creatinine Ratio 15.3 Random Glucose 93 mg/dl Calcium Level 9.6 mg/dl Phosphorus Level 3.1 mg/dl Magnesium Level 1.9 mg/dl Total Bilirubin 0.9 mg/dl Direct Bilirubin 0.2 mg/dl Aspartate Amino Transf (AST/SGOT) 19 U/L Alanine Aminotransferase (ALT/SGPT) 14 U/L Alkaline Phosphatase 83 U/L Total Protein 5.7 gm/dl Albumin 2.8 gm/dl Creatine Kinase MB Ratio
[2016-12-21 09:43] LABS: CKMB/CK RATIO 1.8 (0-3.0)
[2016-12-21] MEDS: LEVOTHYROXINE 100 MCG TAB PO SCH (10:08)
[2016-12-21] MEDS: DONEPEZIL HCL 5 MG TAB PO SCH (10:08)
[2016-12-21] MEDS: CITALOPRAM 40 MG TAB PO SCH (10:08)
[2016-12-21] MEDS: PANTOprazole SOD 40 MG TAB PO SCH (10:08)
[2016-12-21] MEDS ORDERED: PANTOprazole INJ 40 MG in SYRINGE 0 ML IV SCH (11:00)
[2016-12-21] MEDS ORDERED: VANCOMYCIN INJ 1,000 MG in SODIUM CHLORIDE 0.9% 250ML 250 ML IV SCH (12:00)
--- NOTE | 2016-12-21 12:59 | CONSULTATION REPORT ---
DATE OF CONSULTATION: 12/21/2016 REQUESTING PHYSICIAN: Dr. Wan. HISTORY OF PRESENT ILLNESS: Giselle Garcia is a 71-year-old woman ____ formally a patient of Dr. Montoya who resides in [place] and is here now for evaluation of an acute febrile illness with unresponsiveness and perhaps some twitching and other motor activity that has been interpreted as possible seizures. Neurology is consulted to address the latter. She does have a history of dementia, stage III renal disease and was apparently found by her unable to respond, was febrile, having chills and rigors and EMS was service was called. She was found to be in SVT, later developed some twitching activity which was interpreted as seizures and received Ativan en route. When she arrived here, she was obtunded, tachypneic. Her temperature was 39.4. Her labs showed a mild elevation in sed rate, normal white count, lactic acid about 3, creatinine 1.5 and then she was transferred to the ICU, at which point she woke up, was moving all limbs, was confused and was unable to verbalize much. By this morning; however, she is back to what the family thinks is baseline. She is pleasantly confused, knows she is in the hospital, thinks it is in [place], thinks her primary care physician is still Dr. Montoya and has a mild tremor of the head and neck and occasional hands. According to the family, the latter has been a longstanding problem, particularly when she is under stress and runs in family members on her side. PAST MEDICAL HISTORY: Includes chronic anxiety, renal disease, dementia which has been coming on for a number of years, depression, dyslipidemia, GERD, hypertension, hypothyroidism. PAST SURGICAL HISTORY: Surgically she has had a cholecystectomy and knee replacement. FAMILY HISTORY: Positive for cancer and for tremor on her side. SOCIAL HISTORY: Reveals her to be a current smoker. She is . She lives with her , and is retired. IMMUNIZATIONS: Up-to-date. She does have a history of MRSA. ALLERGIES: TO CODEINE. SCHEDULED HOME MEDICATIONS: Include bupropion XL 300 mg daily, Celexa 40 mg p.o. daily, docusate sodium, Aricept 5 mg daily, levothyroxine, omeprazole, ranitidine. As needed medications include acetaminophen. PHYSICAL EXAMINATION: VITAL SIGNS: Her blood pressure is 138/85, pulse was 118, respirations were 28. She had a temperature of 39.4. GENERAL: She was confused, but was moving all limbs. HEENT: Examination was unremarkable. LUNGS: Clear. HEART: Had tachycardia but no murmurs. ABDOMEN: Was soft, nontender. There was no peripheral edema. NEUROLOGIC: Today, she is pleasantly confused. She is responding to family members. She is conversant. She has a mild tremulousness of the head. Eye movements are normal, gross visual field testing is normal. Facial motility and strength is normal. Speech is clear. She moves all extremities. There is no drift or pronation sign. There is a mild tremor of the outstretched hands. I do not see any parkinsonian features. There is no cogwheeling. Reflexes are 1+. Toes are downgoing. No Alicia signs are seen. Gross sensory examination is intact to vibration and light touch. Strength testing is excellent. I reviewed her imaging studies and labs. CT does show what I think is a modest degree of leukoencephalopathy and some atrophy not out of keeping for her age. I cannot state with any degree of certainty that what was seen in the ambulance was not a seizure, but I am suspicious that in this setting it may have simply been an exacerbation of her underlying tremor. She is, however, on a number of agent that will drop the seizure threshold including Wellbutrin which is at a modestly high dose. At this point, I am not anxious to start her on any anticonvulsants as if a seizure did occur, it may have been in the setting of toxic stimulus or febrile illness and her threshold may have been altered due to the Wellbutrin and unless her EEG is significantly abnormal I simply suggest that we not do anything and observe her. It might be of some benefit to reduce her Wellbutrin down a bit just to be on the safe side. We will see how things transpire in the next day or two. We will be looking in on her tomorrow. AGUSTINA
--- NOTE | 2016-12-21 16:59 | Progress Note ---
Internal Med Progress Note Date of Service: Dec 21, 2016. Provider Documentation: SUBJECTIVE: Patient is sitting in her bed in no apparent distress. She is oriented X 3 and family is at bedside. Denies any headache, nausea/vomiting or visual disturbance. No other new change or complaint. OBJECTIVE: Vital Signs-as noted below Examination: General Appearance: Alert/Awake sitting in her be in no apparent distress. Head: normocephalic, atraumatic EENT: Eyes, Eras, Nose & Throat are normal looking Neck: Supple, Central Trachea, No JVD. Respiratory/Chest: lungs clear B/L on auscultation, no respiratory distress Cardiovascular: Regular Rate, Normal S1,S2. Abdomen/GI: soft, Non-tender, Normal bowel sounds present. Extremities/Musculoskeletal: no pedal edema Neurologic/Psych: No gross neurologic deficit present. Lab data as noted below. ASSESSMENT & PLAN: Altered Mental Status: Resolved now. Etiology not clear. Patient has baseline dementia -as per family was Ok y12-15 hours before she was brought to hospital. No sick contact at home -CT head negative for CVA -Spinal tap in non-conclusive for any infectious process. -Flu screen is negative. -MRSA screen in normal. -Reviewed Neurology input. Thanks Fever: No clear focus of infection. -blood /urine culture are negative so far. -UA -moderate leukocyte esterase so continuing Zosyn (Day # 2) & Zithromax ( day # 2)so far. have discontinued other antibiotics. -Normal Lactic acid, History of Senile Dementia: Presents with acute change in mental status Possible metabolic encephalopathy due to infection -Started Aricept 5 mg daily. Acute Kidney Injury On CKD Stage III: Likely due to dehydration , infection -Continue IVF -follow PRP -avoid Nephrotoxins /NSAIDS /contrast studies Code Status: FULL CODE Disposition : lives at home with family will need PT/OT eval when medically stable Vital Signs: Date Time Temp Pulse Resp B/P Pulse Ox O2 Delivery O2 Flow Rate FiO2 12/21/16 16:03 36.8 60 16 95 12/21/16 16:00 Room Air 12/21/16 15:58 36.8 60 16 113/61 95 Room Air 12/21/16 13:59 64 24 115/56 95 Room Air 12/21/16 12:00 Room Air 12/21/16 11:58 36.6 64 19 102/50 94 Room Air 12/21/16 09:59 60 18 112/55 97 Room Air 12/21/16 08:00 Room Air 12/21/16 07:58 36.6 62 16 110/63 95 Room Air 12/21/16 06:59 74 15 142/75 96 Room Air 12/21/16 06:00 62 17 124/63 94 Room Air 12/21/16 04:00 95 Room Air 12/21/16 04:00 37.0 65 19 114/57 95 Room Air 12/21/16 02:00 70 18 111/64 92 Room Air 12/21/16 00:00 37.3 76 22 115/64 93 Room Air 12/20/16 23:59 94 Room Air 12/20/16 22:00 37.4 88 17 122/63 94 Room Air 12/20/16 20:30 38.7 12/20/16 20:00 39.4 105 17 108/73 95 Room Air 12/20/16 20:00 95 Room Air 12/20/16 18:08 93 19 141/75 99 Nasal Cannula 2.0 12/20/16 18:03 100 27 152/76 95 Nasal Cannula 2.0 12/20/16 17:58 103 22 157/81 96 Nasal Cannula 2.0 12/20/16 17:54 104 15 139/86 98 Nasal Cannula 2.0 12/20/16 17:53 130 19 143/96 12/20/16 17:51 39.2 104 21 170/76 98 Nasal Cannula 2.0 12/20/16 17:33 39.2 95 17 170/76 90 Nasal Cannula 2.0 Lab Results: Results Past 24 Hours Test 12/20/16 20:41 12/20/16 21:39 12/21/16 00:32 12/21/16 04:36 Range/Units Bedside Glucose 101 70-90 mg/dl Lactic Acid Level 0.5 0.4-2.0 mmol/L Total Creatine Kinase 256 26-192 U/L Creatine Kinase MB 3.7 0.5-3.6 ng/ml Creatine Kinase MB Ratio 1.4 0-3.0 White Blood Count 9.93 4.8-10.8 K/uL Red Blood Count 3.95 4.2-5.4 M/uL Hemoglobin 11.6 12.0-16.0 g/dL Hematocrit 34.4 37-47 % Mean Corpuscular Volume 87.1 80-100 fL Mean Corpuscular Hemoglobin 29.4 25-34 pg Mean Corpuscular Hemoglobin Concent 33.7 32-36 g/dl Platelet Count 240 130-400 K/uL Mean Platelet Volume 10.4 7.4-10.4 fL Neutrophils (%) (Auto) 72.4 % Lymphocytes (%) (Auto) 18.8 % Monocytes (%) (Auto) 8.1 % Eosinophils (%) (Auto) 0.2 % Basophils (%) (Auto) 0.3 % Neutrophils # (Auto) 7.19 1.4-6.5 K/uL Lymphocytes # (Auto) 1.87 1.2-3.4 K/uL Monocytes # (Auto) 0.80 0.11-0.59 K/uL Eosinophils # (Auto) 0.02 0-0.5 K/uL Basophils # (Auto) 0.03 0-0.2 K/uL RDW Standard Deviation 44.6 36.4-46.3 fL RDW Coefficient of Variation 13.9 11.5-14.5 % Immature Granulocyte % (Auto) 0.2 % Immature Granulocyte # (Auto) 0.02 0.00-0.02 K/uL Sodium Level 141 136-145 mmol/L Potassium Level 3.5 3.5-5.1 mmol/L Chloride Level 108 98-107 mmol/L Carbon Dioxide Level 23 21-32 mmol/L Anion Gap 10.0 3-11 mmol/L Blood Urea Nitrogen 20 7-18 mg/dl Creatinine 1.30 0.60-1.20 mg/dl Est Creatinine Clear Calc Drug Dose 34.6 ml/min Estimated GFR () 47.1 Estimated GFR (Non- 40.7 BUN/Creatinine Ratio 15.3 10-20 Random Glucose 93 70-99 mg/dl Calcium Level 9.6 8.5-10.1 mg/dl Phosphorus Level 3.1 2.5-4.9 mg/dl Magnesium Level 1.9 1.8-2.4 mg/dl Total Bilirubin 0.9 0.2-1 mg/dl Direct Bilirubin 0.2 0-0.2 mg/dl Aspartate Amino Transf (AST/SGOT) 19 15-37 U/L Alanine Aminotransferase (ALT/SGPT) 14 12-78 U/L Alkaline Phosphatase 83 45-117 U/L Total Protein 5.7 6.4-8.2 gm/dl Albumin 2.8 3.4-5.0 gm/dl Test 12/21/16 08:45 Range/Units Lactic Acid Level 1.1 0.4-2.0 mmol/L Total Creatine Kinase 221 26-192 U/L Creatine Kinase MB 3.9 0.5-3.6 ng/ml Creatine Kinase MB Ratio 1.8 0-3.0 Microbiology Results 12/20/16 MRSA DNA Surveillance Screen - Final, Complete Specimen Negative for MRSA by DNA Probe
[2016-12-21] MEDS ORDERED: RISPERIDONE ODT 0.5MG PO PRN (17:00)
[2016-12-22] MEDS: SODIUM CHLORIDE 0.9% 1000ML 1,000 ML IV SCH ×2 (04:57→21:16)
[2016-12-22 06:24] LABS: BASO % 0.4 %; BASO ABS # 0.03 K/uL (0-0.2); COMPLETE YES; EOS % 2.2 %; HEMATOCRIT 31.8 % (37-47); IG% 0.1 %; LYMPH % 21.1 %; LYMPH ABS # 1.54 K/uL (1.2-3.4); MEAN CELL VOLUME 86.2 fL (80-100); MEAN CORPUSCULAR HEMOGLOBIN 28.7 pg (25-34); MEAN CORPUSCULAR HGB CONC 33.3 g/dl (32-36); MEAN PLATELET VOLUME 10.5 fL (7.4-10.4); MONO % 9.1 %; NEUT % 67.1 %; PLATELET COUNT 216 K/uL (130-400); RED BLOOD COUNT 3.69 M/uL (4.2-5.4); WHITE BLOOD COUNT 7.29 K/uL (4.8-10.8)
[2016-12-22] MEDS: LEVOTHYROXINE 100 MCG TAB PO SCH (06:37)
[2016-12-22 07:01] LABS: CALCIUM 9.4 mg/dl (8.5-10.1); CREATININE 1.2 mg/dl (0.60-1.20); MAGNESIUM 1.8 mg/dl (1.8-2.4); POTASSIUM 3.2 mmol/L (3.5-5.1)
[2016-12-22 07:02] VITALS: BP 111/67; PULSE 61; TEMP 36.7; O2SAT 94
[2016-12-22 07:07] LABS: PHOSPHORUS 2.2 mg/dl (2.5-4.9)
[2016-12-22] MEDS: PIPERACILL/TAZOBAC IV 3.375 GM in DEXTROSE 5% 100ML 100 ML IV SCH ×3 (08:05→23:43)
[2016-12-22] MEDS: PANTOprazole SOD 40 MG TAB PO SCH (08:05)
[2016-12-22] MEDS: AZITHROMYCIN 250 MG TAB PO SCH (08:05)
[2016-12-22] MEDS: CITALOPRAM 40 MG TAB PO SCH (08:06)
[2016-12-22] MEDS: DONEPEZIL HCL 5 MG TAB PO SCH (08:06)
[2016-12-22] MEDS: HEPARIN SOD 5000 UNIT/0.5 ML CARP SQ SCH ×2 (08:13→21:00)
[2016-12-22 09:45] VITALS: BP 106/62; PULSE 65
[2016-12-22] MEDS ORDERED: POTASSIUM CHLORIDE 20 MEQ TABCR PO ONE (10:00)
[2016-12-22] MEDS: POT PHOSPHATE MONOBASIC W/ SOD TAB PO SCH ×2 (10:27→17:25)
--- NOTE | 2016-12-22 12:39 | Progress Note ---
Internal Med Progress Note Date of Service: Dec 22, 2016. Provider Documentation: SUBJECTIVE: Patient is sitting in her bed in no apparent distress. She is oriented X 3 and family is at bedside. Denies any headache, nausea/vomiting or visual disturbance. No other new change or complaint. OBJECTIVE: Vital Signs-as noted below Examination: General Appearance: Alert/Awake sitting in her be in no apparent distress. Head: normocephalic, atraumatic EENT: Eyes, Eras, Nose & Throat are normal looking Neck: Supple, Central Trachea, No JVD. Respiratory/Chest: lungs clear B/L on auscultation, no respiratory distress Cardiovascular: Regular Rate, Normal S1,S2. Abdomen/GI: soft, Non-tender, Normal bowel sounds present. Extremities/Musculoskeletal: no pedal edema Neurologic/Psych: No gross neurologic deficit present. Lab data as noted below. ASSESSMENT & PLAN: Altered Mental Status: Resolved now. Etiology not clear. Patient has baseline dementia -as per family was Ok [id number] hours before she was brought to hospital. No sick contact at home -CT head negative for CVA -Spinal tap in non-conclusive for any infectious process. -Flu screen is negative. -MRSA screen in normal. -Reviewed Neurology input. Thanks Fever: No clear focus of infection.Likely UTI. -blood /urine culture are negative so far.Reinoculating Urine culture. -UA -moderate leukocyte esterase so continuing Zosyn (Day # 3) & Zithromax ( day # 3)so far. have discontinued other antibiotics. -Normal Lactic acid, History of Senile Dementia: Presents with acute change in mental status Possible metabolic encephalopathy due to infection -Started Aricept 5 mg daily. Acute Kidney Injury On CKD Stage III: Likely due to dehydration , infection -Continue IVF -follow PRP -avoid Nephrotoxins /NSAIDS /contrast studies -Replaced Potassium & Phosphorous. Code Status: FULL CODE Disposition : lives at home with family will need PT/OT eval when medically stable Vital Signs: Date Time Temp Pulse Resp B/P Pulse Ox O2 Delivery O2 Flow Rate FiO2 12/22/16 09:45 65 12/22/16 08:30 Room Air 12/22/16 07:02 36.7 61 20 111/67 94 Room Air 12/21/16 23:53 36.7 59 20 107/64 94 Room Air 12/21/16 23:30 93 Room Air 12/21/16 17:03 36.4 64 16 101/47 93 Room Air 12/21/16 16:20 Room Air 12/21/16 16:03 36.8 60 16 95 12/21/16 16:00 Room Air 12/21/16 15:58 36.8 60 16 113/61 95 Room Air 12/21/16 13:59 64 24 115/56 95 Room Air Lab Results: Results Past 24 Hours Test 12/21/16 20:04 12/22/16 06:00 12/22/16 06:57 12/22/16 11:09 Range/Units Bedside Glucose 112 98 89 70-90 mg/dl White Blood Count 7.29 4.8-10.8 K/uL Red Blood Count 3.69 4.2-5.4 M/uL Hemoglobin 10.6 12.0-16.0 g/dL Hematocrit 31.8 37-47 % Mean Corpuscular Volume 86.2 80-100 fL Mean Corpuscular Hemoglobin 28.7 25-34 pg Mean Corpuscular Hemoglobin Concent 33.3 32-36 g/dl Platelet Count 216 130-400 K/uL Mean Platelet Volume 10.5 7.4-10.4 fL Neutrophils (%) (Auto) 67.1 % Lymphocytes (%) (Auto) 21.1 % Monocytes (%) (Auto) 9.1 % Eosinophils (%) (Auto) 2.2 % Basophils (%) (Auto) 0.4 % Neutrophils # (Auto) 4.89 1.4-6.5 K/uL Lymphocytes # (Auto) 1.54 1.2-3.4 K/uL Monocytes # (Auto) 0.66 0.11-0.59 K/uL Eosinophils # (Auto) 0.16 0-0.5 K/uL Basophils # (Auto) 0.03 0-0.2 K/uL RDW Standard Deviation 44.0 36.4-46.3 fL RDW Coefficient of Variation 13.8 11.5-14.5 % Immature Granulocyte % (Auto) 0.1 % Immature Granulocyte # (Auto) 0.01 0.00-0.02 K/uL Sodium Level 143 136-145 mmol/L Potassium Level 3.2 3.5-5.1 mmol/L Chloride Level 110 98-107 mmol/L Carbon Dioxide Level 21 21-32 mmol/L Anion Gap 12.0 3-11 mmol/L Blood Urea Nitrogen 18 7-18 mg/dl Creatinine 1.20 0.60-1.20 mg/dl Est Creatinine Clear Calc Drug Dose 37.5 ml/min Estimated GFR () 51.9 Estimated GFR (Non- 44.8 BUN/Creatinine Ratio 15.0 10-20 Random Glucose 89 70-99 mg/dl Calcium Level 9.4 8.5-10.1 mg/dl Phosphorus Level 2.2 2.5-4.9 mg/dl Magnesium Level 1.8 1.8-2.4 mg/dl Total Bilirubin 0.6 0.2-1 mg/dl Direct Bilirubin 0.1 0-0.2 mg/dl Aspartate Amino Transf (AST/SGOT) 21 15-37 U/L Alanine Aminotransferase (ALT/SGPT) 14 12-78 U/L Alkaline Phosphatase 73 45-117 U/L Total Creatine Kinase 152 26-192 U/L Total Protein 5.4 6.4-8.2 gm/dl Albumin 2.6 3.4-5.0 gm/dl
[2016-12-22 14:48] VITALS: BP 106/53; PULSE 65; TEMP 36.9; O2SAT 96
--- NOTE | 2016-12-22 14:57 | Neurology Progress Notes ---
Neurology Progress Note Date of Service Dec 22, 2016. Yinka Desai is a 71 year old female who has a history of dementia, stage III renal disease and was found by her unable to respond, febrile, and having chills,rigors. She was found to be in SVT and had some twitching activity which was thought to be seizure activity. She had a dose of Ativan on the way to the ED. In the ED she was obtunded and tachypneic with a fever of 39.4. Her labs showed a mild elevation in sed rate, normal white count, lactic acid about 3, creatinine 1.5. She was transferred to the ICU but then woke up and was moving all limbs but was confused and was unable to verbalize much.By the next morning according to the family she was at baseline. currently she is sitting up in bed and her daughter and are in the room. They bother think she is very close to baseline. denies CP, SOB, abdominal pain, weakness, numbness tingling N, V. She ate most of her lunch today but could not tell what she ate. She does not walk with a walker at baseline and was up and walking the halls with PT today with no difficulties. Daughter states she does not eat well at home and has had a significant weight loss. Objective Date Time Temp Pulse Resp B/P Pulse Ox O2 Delivery O2 Flow Rate FiO2 12/22/16 14:48 36.9 65 16 106/53 96 Room Air 12/22/16 09:45 65 12/22/16 08:30 Room Air 12/22/16 07:02 36.7 61 20 111/67 94 Room Air 12/21/16 23:53 36.7 59 20 107/64 94 Room Air 12/21/16 23:30 93 Room Air 12/21/16 17:03 36.4 64 16 101/47 93 Room Air 12/21/16 16:20 Room Air 12/21/16 16:03 36.8 60 16 95 12/21/16 16:00 Room Air 12/21/16 15:58 36.8 60 16 113/61 95 Room Air Last 24 Hours Test 12/21/16 20:04 12/22/16 06:00 12/22/16 06:57 12/22/16 11:09 Bedside Glucose 112 mg/dl 98 mg/dl 89 mg/dl White Blood Count 7.29 K/uL Red Blood Count 3.69 M/uL Hemoglobin 10.6 g/dL Hematocrit 31.8 % Mean Corpuscular Volume 86.2 fL Mean Corpuscular Hemoglobin 28.7 pg Mean Corpuscular Hemoglobin Concent 33.3 g/dl Platelet Count 216 K/uL Mean Platelet Volume 10.5 fL Neutrophils (%) (Auto) 67.1 % Lymphocytes (%) (Auto) 21.1 % Monocytes (%) (Auto) 9.1 % Eosinophils (%) (Auto) 2.2 % Basophils (%) (Auto) 0.4 % Neutrophils # (Auto) 4.89 K/uL Lymphocytes # (Auto) 1.54 K/uL Monocytes # (Auto) 0.66 K/uL Eosinophils # (Auto) 0.16 K/uL Basophils # (Auto) 0.03 K/uL RDW Standard Deviation 44.0 fL RDW Coefficient of Variation 13.8 % Immature Granulocyte % (Auto) 0.1 % Immature Granulocyte # (Auto) 0.01 K/uL Sodium Level 143 mmol/L Potassium Level 3.2 mmol/L Chloride Level 110 mmol/L Carbon Dioxide Level 21 mmol/L Anion Gap 12.0 mmol/L Blood Urea Nitrogen 18 mg/dl Creatinine 1.20 mg/dl Est Creatinine Clear Calc Drug Dose 37.5 ml/min Estimated GFR () 51.9 Estimated GFR (Non- 44.8 BUN/Creatinine Ratio 15.0 Random Glucose 89 mg/dl Calcium Level 9.4 mg/dl Phosphorus Level 2.2 mg/dl Magnesium Level 1.8 mg/dl Total Bilirubin 0.6 mg/dl Direct Bilirubin 0.1 mg/dl Aspartate Amino Transf (AST/SGOT) 21 U/L Alanine Aminotransferase (ALT/SGPT) 14 U/L Alkaline Phosphatase 73 U/L Total Creatine Kinase 152 U/L Total Protein 5.4 gm/dl Albumin 2.6 gm/dl Imaging: no further imaging Exam: Physical Exam: Constitutional: , appearance nourished, healthy and normal Ears, Nose, Mouth and Throat: mucous membranes moist, no injection and skin normal, eyes normal Cardiovascular: normal S-1 and S-2 and regular rate and rhythm Respiratory: clear to auscultation (CTA) Musculoskeletal: no peripheral edema and good distal pulses Skin: no stigmata of neurocutaneous disease noted and normal and intact Eyes: extraocular muscles intact (EOMI) and pupils equal, round and reactive to light (PERRL) NEUROLOGIC EXAMINATION: Mental status: Alert and interactive unable to tell year-states 1951, does not know the president, thinks Jacob, then Faizan, knows she lives in [place] and know her daughters name. She thinks she lives with to of her children but her 2 grandsons live with her and her . She can stick out her tongue point to the ceiling and close her eyes Oriented to person Speech fluent with no evidence of aphasia Cranial Nerves smile eye brow raise symmetric tongue midline Reflexes: Deep tendon reflexes were symmetrical and graded 2/5. Plantar responses were flexor. Sensory: in tact to light touch Coordination: finger to nose without bi pass Gait/Stance: sitting up in bed Motor: Negative for pronator drift of out stretched arms with eyes closed. Strength: biceps triceps hand manager culture bilaterally 5/5, hip flex plantar flex ext 5/5 Current Inpatient Medications Medications (Trade) Dose Ordered Sig/Aminata Route Start Time Stop Time Status Last Admin Dose Admin Lorazepam (Ativan Inj) 1 mg Q15M PRN IV 12/20/16 16:45 01/19/17 16:44 Albuterol/ Ipratropium (Duoneb) 3 ml Q4 PRN INH 12/20/16 16:45 01/19/17 16:44 Midazolam HCl 2 mg 2 mg ONE PRN IV 12/20/16 17:45 12/22/16 17:44 Sodium Chloride 1,000 ml @ 50 mls/hr Q20H IV 12/20/16 18:45 01/19/17 18:44 12/22/16 04:57 75 MLS/HR Piperacillin Sod/ Tazobactam Sod/ Dextrose (Zosyn Iv/D5 100ml) 115 ml @ 28.75 mls/ hr Q8@0000,0800,1600 IV 12/21/16 00:00 12/31/16 00:00 12/22/16 08:05 28.75 MLS/HR Acetaminophen (Tylenol Tab) 650 mg Q4H PRN PO 12/20/16 19:15 01/19/17 19:14 Acetaminophen (Tylenol Supp) 650 mg Q4H PRN KS 12/20/16 19:15 01/19/17 19:14 12/20/16 19:31 650 MG Heparin Sodium (Porcine) (Heparin Sq 5000 Unit/0.5ml) 5,000 unit Q12 SQ 12/20/16 21:00 01/19/17 20:59 12/22/16 08:13 5,000 UNIT Piperacillin Sod/ Tazobactam Sod (Consult) 1 ea UD PRN N/A 12/20/16 19:45 12/30/16 19:44 Pantoprazole Sodium (Protonix Tab) 40 mg QAM PO 12/22/16 09:00 01/21/17 08:59 12/22/16 08:05 40 MG Citalopram Hydrobromide (celeXA TAB) 40 mg QAM PO 12/22/16 09:00 01/21/17 08:59 12/22/16 08:06 40 MG Donepezil HCl (Aricept Tab) 5 mg QAM PO 12/22/16 09:00 01/21/17 08:59 12/22/16 08:06 5 MG Levothyroxine Sodium (Synthroid Tab) 100 mcg DAILYBB PO 12/22/16 06:00 01/21/17 05:59 12/22/16 06:37 100 MCG Azithromycin (Zithromax Tab) 250 mg QAM PO 12/22/16 09:00 12/25/16 09:30 12/22/16 08:05 250 MG Risperidone (Risperdal M Tab) 0.5 mg TID PRN PO 12/21/16 17:00 01/20/17 16:59 Potassium Chloride (Klor-Con Tab) 40 meq ONE ONCE PO 12/22/16 10:00 12/22/16 10:01 12/22/16 10:27 40 MEQ Potassium/ Phosphorus/Sodium (Phospha 250 Neutral 155-852-130 Mg) 1 tab TIDM PO 12/22/16 12:00 01/21/17 11:59 12/22/16 10:27 1 TAB Impression 71 year old female with MS change -with resolve Plan 1. currently on Aricept 5 mg am. Could add Namenda to counter act the weight loss and loss of appetite 2. need 24/7 supervision according to he is always with her 3. home safety and fall precautions 4. no infection identified 5. she has seen Timmy Omid [employer] INSPECT[employer] in our office last visit 08/25/16- should follow up post hospital visit in 2-3 weeks. 6. reported jerking was thought to be seizure activity would not treat at this time I have seen and discussed above patient with Dr Ina Smith, neurology Pt seen and examined. History reviewed with OBEY Irving. Pt is awake and alert, recalls some of the details of the last several days and is accurate. Her spontaneous speech and language are normal. Her tongue is atraumatic. She moves all fours symmetrically. Impression delirium related to illness, likely viral. I agree with Dr Wilson with regard to spell of shaking, would not treat with anticonvulsants unless the EEG is suggestive of seizure. If EEG is suggestive of sz would consider chuckying CIARAN Gutiérrez MD
[2016-12-22 22:59] VITALS: BP 135/65; PULSE 65; TEMP 36.9; O2SAT 95
[2016-12-23] MEDS: LEVOTHYROXINE 100 MCG TAB PO SCH (06:28)
[2016-12-23 06:29] LABS: BASO % 0.3 %; BASO ABS # 0.02 K/uL (0-0.2); COMPLETE YES; EOS % 3.1 %; HEMATOCRIT 34.9 % (37-47); IG% 0.1 %; LYMPH % 23.9 %; LYMPH ABS # 1.64 K/uL (1.2-3.4); MEAN CELL VOLUME 85.3 fL (80-100); MEAN CORPUSCULAR HEMOGLOBIN 29.3 pg (25-34); MEAN CORPUSCULAR HGB CONC 34.4 g/dl (32-36); MEAN PLATELET VOLUME 10.6 fL (7.4-10.4); MONO % 8.9 %; NEUT % 63.7 %; PLATELET COUNT 234 K/uL (130-400); RED BLOOD COUNT 4.09 M/uL (4.2-5.4); WHITE BLOOD COUNT 6.87 K/uL (4.8-10.8)
[2016-12-23 06:59] LABS: BUN/CREATININE RATIO 11.1 (10-20); CALCIUM 9.4 mg/dl (8.5-10.1); CREATININE 1.3 mg/dl (0.60-1.20); MAGNESIUM 1.7 mg/dl (1.8-2.4); POTASSIUM 3.4 mmol/L (3.5-5.1)
[2016-12-23 07:02] LABS: PHOSPHORUS 2.7 mg/dl (2.5-4.9)
--- NOTE | 2016-12-23 07:04 | ELECTROENCEPHALOGRAPH REPORT ---
REQUESTING PHYSICIAN: Jack Wilson MD CLINICAL DIAGNOSIS: Possible seizure activity in the setting of an acute infectious illness and fever. ELECTROENCEPHALOGRAM DIAGNOSIS: Essentially normal during wakefulness. DESCRIPTION OF TRACING: This EEG was done as a bedside recording with simultaneous video analysis of movement and behavior. Photic stimulation was performed. Drowsiness and light sleep were not recorded. Under these conditions, there is evidence for normal appearing background rhythm in the alpha range of up to 9-10 Hz of maximum frequency and 30 microvolts of maximum amplitude. This is maximum in posterior head regions and bilaterally symmetrical. Polymorphic mid frequency theta activity is seen over all head regions without clear focal or regional predominance. Anterior head region maximum bilaterally symmetrical low voltage fast activity in the beta range is present. Photic stimulation induces a minimal driving response. At no time during the waking tracing is there evidence for potentially epileptogenic activity in the form of polyspike or spike wave bursts, focal sharp waves or focal spikes. INTERPRETATION: This EEG is essentially normal during wakefulness without evidence for focal or generalized encephalopathy and without evidence for potentially epileptogenic activity. [facility]
[2016-12-23 07:45] VITALS: BP 107/70; PULSE 71; TEMP 36.6; O2SAT 97
[2016-12-23] MEDS: PANTOprazole SOD 40 MG TAB PO SCH (08:15)
[2016-12-23] MEDS: CITALOPRAM 40 MG TAB PO SCH (08:15)
[2016-12-23] MEDS: AZITHROMYCIN 250 MG TAB PO SCH (08:15)
[2016-12-23] MEDS: POT PHOSPHATE MONOBASIC W/ SOD TAB PO SCH ×3 (08:16→17:07)
[2016-12-23] MEDS: DONEPEZIL HCL 5 MG TAB PO SCH (08:16)
[2016-12-23] MEDS: PIPERACILL/TAZOBAC IV 3.375 GM in DEXTROSE 5% 100ML 100 ML IV SCH ×2 (08:16→16:10)
[2016-12-23] MEDS: HEPARIN SOD 5000 UNIT/0.5 ML CARP SQ SCH ×2 (08:17→21:08)
[2016-12-23] MEDS ORDERED: VANCOMYCIN TROUGH SCH (11:30)
--- NOTE | 2016-12-23 13:18 | Progress Note ---
Subjective Date of Service: Dec 23, 2016. Subjective Pt evaluation today including: conversation w/ patient, conversation w/ family , physical exam, lab review, review of studies, review of inpatient medication list Saw/examined the patient in room 257 Doing better today; more awake/alert, oriented x 3, but forgetful of some facts +diarrhea; liquid diarrhea this morning Problem List Medical Problems: (1) Abdominal wall abscess Status: Acute (2) Altered level of consciousness Status: Acute (3) Ambulatory dysfunction Status: Acute (4) Chest pain Status: Acute (5) Constipation Status: Acute (6) Creatinine elevation Status: Acute (7) Encephalopathy acute Status: Acute (8) Febrile disorder Status: Acute (9) Febrile seizure Status: Acute (10) Frequent falls Status: Acute (11) Gastrointestinal perforation Status: Acute (12) Generalized weakness Status: Acute (13) Hypotension Status: Acute (14) Lactic acidemia Status: Acute (15) Orthostatic hypotension Status: Acute (16) Severe sepsis with acute organ dysfunction Status: Acute Review of Systems Constitutional: No chills, No fever Respiratory: No cough, No shortness of breath, No sputum Cardiac: No chest pain Abdomen: + diarrhea, No GI bleeding, No constipation, No nausea, No pain, No vomiting Female : No dysuria, No urinary frequency Neurologic: + memory loss, No balance problems, No numbness/tingling, No vertigo, No weakness Heme: No abnormal bleeding/bruising Medications Current Inpatient Medications Medications (Trade) Dose Ordered Sig/Aminata Route Start Time Stop Time Status Last Admin Dose Admin Lorazepam (Ativan Inj) 1 mg Q15M PRN IV 12/20/16 16:45 01/19/17 16:44 Albuterol/ Ipratropium 3 ml 3 ml Q4 PRN INH 12/20/16 16:45 01/19/17 16:44 Sodium Chloride 1,000 ml @ 50 mls/hr Q20H IV 12/20/16 18:45 01/19/17 18:44 12/22/16 21:16 50 MLS/HR Piperacillin Sod/ Tazobactam Sod/ Dextrose (Zosyn Iv/D5 100ml) 115 ml @ 28.75 mls/ hr Q8@0000,0800,1600 IV 12/21/16 00:00 12/31/16 00:00 12/23/16 08:16 28.75 MLS/HR Acetaminophen (Tylenol Tab) 650 mg Q4H PRN PO 12/20/16 19:15 01/19/17 19:14 Acetaminophen (Tylenol Supp) 650 mg Q4H PRN [place] 12/20/16 19:15 01/19/17 19:14 12/20/16 19:31 650 MG Heparin Sodium (Porcine) (Heparin Sq 5000 Unit/0.5ml) 5,000 unit Q12 SQ 12/20/16 21:00 01/19/17 20:59 12/23/16 08:17 5,000 UNIT Piperacillin Sod/ Tazobactam Sod (Consult) 1 ea UD PRN N/A 12/20/16 19:45 12/30/16 19:44 Pantoprazole Sodium (Protonix Tab) 40 mg QAM PO 12/22/16 09:00 01/21/17 08:59 12/23/16 08:15 40 MG Citalopram Hydrobromide (celeXA TAB) 40 mg QAM PO 12/22/16 09:00 01/21/17 08:59 12/23/16 08:15 40 MG Donepezil HCl (Aricept Tab) 5 mg QAM PO 12/22/16 09:00 01/21/17 08:59 12/23/16 08:16 5 MG Levothyroxine Sodium (Synthroid Tab) 100 mcg DAILYBB PO 12/22/16 06:00 01/21/17 05:59 12/23/16 06:28 100 MCG Azithromycin (Zithromax Tab) 250 mg QAM PO 12/22/16 09:00 12/25/16 09:30 12/23/16 08:15 250 MG Risperidone (Risperdal M Tab) 0.5 mg TID PRN PO 12/21/16 17:00 01/20/17 16:59 Potassium/ Phosphorus/Sodium 1 tab 1 tab TIDM PO 12/22/16 12:00 01/21/17 11:59 12/23/16 11:52 1 TAB Potassium Chloride 10 meq/ Prmx 100 ml @ 100 mls/hr NOW STAT IV 12/23/16 12:54 12/23/16 13:53 UNV Magnesium Sulfate/ Prmx (Magnesium Sulfate/Premixed D5W) 100 ml @ 100 mls/hr NOW STAT IV 12/23/16 12:56 12/23/16 13:55 UNV Objective Vital Signs Date Time Temp Pulse Resp B/P Pulse Ox O2 Delivery O2 Flow Rate FiO2 12/23/16 08:45 Room Air 12/23/16 07:45 36.6 71 18 107/70 97 Room Air 12/23/16 00:00 Room Air 12/22/16 22:59 36.9 65 16 135/65 95 Room Air 12/22/16 16:30 Room Air 12/22/16 14:48 36.9 65 16 106/53 96 Room Air Physical Exam General Appearance: no apparent distress Respiratory/Chest: lungs clear, normal breath sounds, no respiratory distress, no accessory muscle use Cardiovascular: regular rate, rhythm, no edema, no murmur Abdomen: normal bowel sounds, non tender, soft Extremities: normal inspection, no pedal edema Neurologic/Psychiatric: alert, normal mood/affect, oriented x 3, + pertinent finding (+forgetfulness/memory loss) Laboratory Results Last 24 Hours Test 12/23/16 06:15 12/23/16 11:16 White Blood Count 6.87 K/uL Red Blood Count 4.09 M/uL Hemoglobin 12.0 g/dL Hematocrit 34.9 % Mean Corpuscular Volume 85.3 fL Mean Corpuscular Hemoglobin 29.3 pg Mean Corpuscular Hemoglobin Concent 34.4 g/dl Platelet Count 234 K/uL Mean Platelet Volume 10.6 fL Neutrophils (%) (Auto) 63.7 % Lymphocytes (%) (Auto) 23.9 % Monocytes (%) (Auto) 8.9 % Eosinophils (%) (Auto) 3.1 % Basophils (%) (Auto) 0.3 % Neutrophils # (Auto) 4.38 K/uL Lymphocytes # (Auto) 1.64 K/uL Monocytes # (Auto) 0.61 K/uL Eosinophils # (Auto) 0.21 K/uL Basophils # (Auto) 0.02 K/uL RDW Standard Deviation 42.9 fL RDW Coefficient of Variation 13.8 % Immature Granulocyte % (Auto) 0.1 % Immature Granulocyte # (Auto) 0.01 K/uL Sodium Level 142 mmol/L Potassium Level 3.4 mmol/L Chloride Level 109 mmol/L Carbon Dioxide Level 19 mmol/L Anion Gap 14.0 mmol/L Blood Urea Nitrogen 14 mg/dl Creatinine 1.30 mg/dl Est Creatinine Clear Calc Drug Dose 34.6 ml/min Estimated GFR () 47.1 Estimated GFR (Non- 40.7 BUN/Creatinine Ratio 11.1 Random Glucose 78 mg/dl Calcium Level 9.4 mg/dl Phosphorus Level 2.7 mg/dl Magnesium Level 1.7 mg/dl Total Bilirubin 0.6 mg/dl Direct Bilirubin 0.1 mg/dl Aspartate Amino Transf (AST/SGOT) 25 U/L Alanine Aminotransferase (ALT/SGPT) 16 U/L Alkaline Phosphatase 85 U/L Total Protein 6.2 gm/dl Albumin 2.9 gm/dl Bedside Glucose 83 mg/dl Assessment and Plan This is a 71 year old female with PMH of dementia, HTN, CKD stage 3, anxiety/ depression, hypothyroidism presents with altered mental status/confusion Delirium on Dementia Possibly related to a viral infection vs. UTI Currently on azithro and Zosyn maintenance fluids running check for c. diff Head CT, EEG noted appreciate neurology input patient seems to be back to baseline, underlying dementia continue Aricept outpatient neurology and PCP f/u UTI Gardnerella-like bacilli noted on urine culture for now, continue abx; will switch on discharge Acute Kidney Injury superimposed on CKD stage 3 creat on admission 1.5 given IVFs creat improved to 1.3, closer to baseline avoid nephrotoxic agents when able Hypokalemia/Hypomagnesemia replace and recheck in AM (12/24) Anxiety/Depression continue home medications DVT ppx subq heparin DNR if can provide 24 hour care; patient may return home
[2016-12-23] MEDS ORDERED: MAGNESIUM SULFATE 1GM / D5W 1 GM in PREMIXED IN D5W 100 ML IV ONE (13:30)
[2016-12-23] MEDS ORDERED: POTASSIUM CHLR 10 MEQ / WTR 10 MEQ in PREMIXED WATER 100 ML IV ONE (13:30)
--- NOTE | 2016-12-23 15:01 | Neurology Progress Notes ---
Neurology Progress Note Date of Service Dec 23, 2016. Yinka Desai is a 71 year old female who has a history of dementia, stage III renal disease and was found by her unable to respond, febrile, and having chills,rigors. She was found to be in SVT and had some twitching activity which was thought to be seizure activity. She had a dose of Ativan on the way to the ED. In the ED she was obtunded and tachypneic with a fever of 39.4. Her labs showed a mild elevation in sed rate, normal white count, lactic acid about 3, creatinine 1.5. She was transferred to the ICU but then woke up and was moving all limbs but was confused and was unable to verbalize much.By the next morning according to the family she was at baseline. Currently she is sitting up bedside her is in the room. He feels she is at baseline. denies CP, SOB, abdominal pain, weakness, numbness tingling N, V. She ate most of her lunch today but could not tell what she ate. She does not walk with a walker at baseline and was up and walking the halls with PT today with no difficulties. She wants to go home but she had several episodes of diarrhea with no elevation in WBC. Objective Date Time Temp Pulse Resp B/P Pulse Ox O2 Delivery O2 Flow Rate FiO2 12/23/16 08:45 Room Air 12/23/16 07:45 36.6 71 18 107/70 97 Room Air 12/23/16 00:00 Room Air 12/22/16 22:59 36.9 65 16 135/65 95 Room Air 12/22/16 16:30 Room Air Last 24 Hours Test 12/23/16 06:15 12/23/16 11:16 White Blood Count 6.87 K/uL Red Blood Count 4.09 M/uL Hemoglobin 12.0 g/dL Hematocrit 34.9 % Mean Corpuscular Volume 85.3 fL Mean Corpuscular Hemoglobin 29.3 pg Mean Corpuscular Hemoglobin Concent 34.4 g/dl Platelet Count 234 K/uL Mean Platelet Volume 10.6 fL Neutrophils (%) (Auto) 63.7 % Lymphocytes (%) (Auto) 23.9 % Monocytes (%) (Auto) 8.9 % Eosinophils (%) (Auto) 3.1 % Basophils (%) (Auto) 0.3 % Neutrophils # (Auto) 4.38 K/uL Lymphocytes # (Auto) 1.64 K/uL Monocytes # (Auto) 0.61 K/uL Eosinophils # (Auto) 0.21 K/uL Basophils # (Auto) 0.02 K/uL RDW Standard Deviation 42.9 fL RDW Coefficient of Variation 13.8 % Immature Granulocyte % (Auto) 0.1 % Immature Granulocyte # (Auto) 0.01 K/uL Sodium Level 142 mmol/L Potassium Level 3.4 mmol/L Chloride Level 109 mmol/L Carbon Dioxide Level 19 mmol/L Anion Gap 14.0 mmol/L Blood Urea Nitrogen 14 mg/dl Creatinine 1.30 mg/dl Est Creatinine Clear Calc Drug Dose 34.6 ml/min Estimated GFR () 47.1 Estimated GFR (Non- 40.7 BUN/Creatinine Ratio 11.1 Random Glucose 78 mg/dl Calcium Level 9.4 mg/dl Phosphorus Level 2.7 mg/dl Magnesium Level 1.7 mg/dl Total Bilirubin 0.6 mg/dl Direct Bilirubin 0.1 mg/dl Aspartate Amino Transf (AST/SGOT) 25 U/L Alanine Aminotransferase (ALT/SGPT) 16 U/L Alkaline Phosphatase 85 U/L Total Protein 6.2 gm/dl Albumin 2.9 gm/dl Bedside Glucose 83 mg/dl Imaging: This EEG is essentially normal during wakefulness without evidence for focal or generalized encephalopathy and without evidence for potentially epileptogenic activity. Exam: Physical Exam: Constitutional: appearance nourished, healthy and obese Ears, Nose, Mouth and Throat: mucous membranes moist, no injection and skin normal, eyes normal Cardiovascular: normal S-1 and S-2 and regular rate and rhythm Respiratory: clear to auscultation (CTA) and no rales, rhonchi or wheeze Musculoskeletal: no pitting edema Skin: no stigmata of neurocutaneous disease noted and normal and intact Eyes: extraocular muscles intact (EOMI) and pupils equal, round and reactive to light (PERRL) NEUROLOGIC EXAMINATION: Mental status: Alert and interactive she is not oriented to place but when told it is [facility] she states yes Oriented to person Speech fluent with no evidence of aphasia Cranial Nerves smile eye brow raise, tongue midline Coordination: finger to nose without bi pass no tremor Gait/Stance: sitting up in bed side chair Motor: Negative for pronator drift of out stretched arms with eyes closed. Strength: biceps triceps hand [employer] 5/5 bilaterally, hip flex plantar flex ext 5/5 bilaterally Current Inpatient Medications Medications (Trade) Dose Ordered Sig/Aminata Route Start Time Stop Time Status Last Admin Dose Admin Lorazepam (Ativan Inj) 1 mg Q15M PRN IV 12/20/16 16:45 01/19/17 16:44 Albuterol/ Ipratropium 3 ml 3 ml Q4 PRN INH 12/20/16 16:45 01/19/17 16:44 Sodium Chloride 1,000 ml @ 50 mls/hr Q20H IV 12/20/16 18:45 01/19/17 18:44 12/22/16 21:16 50 MLS/HR Piperacillin Sod/ Tazobactam Sod/ Dextrose (Zosyn Iv/D5 100ml) 115 ml @ 28.75 mls/ hr Q8@0000,0800,1600 IV 12/21/16 00:00 12/31/16 00:00 12/23/16 08:16 28.75 MLS/HR Acetaminophen (Tylenol Tab) 650 mg Q4H PRN PO 12/20/16 19:15 01/19/17 19:14 Acetaminophen (Tylenol Supp) 650 mg Q4H PRN [place] 12/20/16 19:15 01/19/17 19:14 12/20/16 19:31 650 MG Heparin Sodium (Porcine) (Heparin Sq 5000 Unit/0.5ml) 5,000 unit Q12 SQ 12/20/16 21:00 01/19/17 20:59 12/23/16 08:17 5,000 UNIT Piperacillin Sod/ Tazobactam Sod (Consult) 1 ea UD PRN N/A 12/20/16 19:45 12/30/16 19:44 Pantoprazole Sodium (Protonix Tab) 40 mg QAM PO 12/22/16 09:00 01/21/17 08:59 12/23/16 08:15 40 MG Citalopram Hydrobromide (celeXA TAB) 40 mg QAM PO 12/22/16 09:00 01/21/17 08:59 12/23/16 08:15 40 MG Donepezil HCl (Aricept Tab) 5 mg QAM PO 12/22/16 09:00 01/21/17 08:59 12/23/16 08:16 5 MG Levothyroxine Sodium (Synthroid Tab) 100 mcg DAILYBB PO 12/22/16 06:00 01/21/17 05:59 12/23/16 06:28 100 MCG Risperidone (Risperdal M Tab) 0.5 mg TID PRN PO 12/21/16 17:00 01/20/17 16:59 Potassium/ Phosphorus/Sodium (Phospha 250 Neutral 155-852-130 Mg) 1 tab TIDM PO 12/22/16 12:00 01/21/17 11:59 12/23/16 11:52 1 TAB Impression 71 year old female with MS change -with resolve Plan 1. currently on Aricept 5 mg am. Could add Namenda to counter act the weight loss and loss of appetite 2. need 24/7 supervision according to he is always with her reenforced she is not to be left alone 3. home safety and fall precautions may benefit from a home health nurse evaluation for safety issues 4. EEG was global encephalopathy would not treat for seizure at this time 5. she has seen Timmy Anne [facility] in our office last visit 08/25/16- should follow up post hospital visit in 2-3 weeks. 6. fall precautions 7. will be available for further input and management, ok from Neurology perspective to d/c to home with 24/7 supervision I have seen and discussed above patient with Dr Ina Smith, neurology Pt seen and examined, discussed hx of . EEG no evidence of sz. If pt has other "episodes" which are not explained by sepsis/infection would rec MRI brain with and without and EEG. If there is ongoing diarrhea or wt loss, could add namenda and see if helpful or hold aricept and see if resolves. Pt should see [facility] as an outpatient. CIARAN Smith MD
[2016-12-23 15:14] VITALS: BP 112/68; PULSE 67; TEMP 36.8; O2SAT 94
[2016-12-23] MEDS: SODIUM CHLORIDE 0.9% 1000ML 1,000 ML IV SCH (18:10)
[2016-12-24] VITALS: BP 133/63; PULSE 65; TEMP 37; O2SAT 96
[2016-12-24] MEDS: PIPERACILL/TAZOBAC IV 3.375 GM in DEXTROSE 5% 100ML 100 ML IV SCH ×2 (00:15→08:03)
[2016-12-24] MEDS: LEVOTHYROXINE 100 MCG TAB PO SCH (05:55)
[2016-12-24 06:56] VITALS: BP 146/74; PULSE 73; TEMP 37.2; O2SAT 98
[2016-12-24] MEDS: POT PHOSPHATE MONOBASIC W/ SOD TAB PO SCH ×2 (07:55→11:44)
[2016-12-24] MEDS: CITALOPRAM 40 MG TAB PO SCH (07:55)
[2016-12-24] MEDS: PANTOprazole SOD 40 MG TAB PO SCH (07:55)
[2016-12-24] MEDS: DONEPEZIL HCL 5 MG TAB PO SCH (07:55)
[2016-12-24] MEDS: HEPARIN SOD 5000 UNIT/0.5 ML CARP SQ SCH (08:00)
[2016-12-24 08:05] VITALS: BP 135/77; PULSE 70; TEMP 36.9; O2SAT 96
[2016-12-24 08:08] VITALS: O2SAT 96
[2016-12-24 08:17] LABS: BASO % 0.5 %; BASO ABS # 0.03 K/uL (0-0.2); COMPLETE YES; EOS % 4.1 %; HEMATOCRIT 31.7 % (37-47); IG% 0.2 %; LYMPH % 26.3 %; LYMPH ABS # 1.48 K/uL (1.2-3.4); MEAN CELL VOLUME 85.9 fL (80-100); MEAN CORPUSCULAR HEMOGLOBIN 29.3 pg (25-34); MEAN CORPUSCULAR HGB CONC 34.1 g/dl (32-36); MEAN PLATELET VOLUME 10.4 fL (7.4-10.4); MONO % 5.5 %; NEUT % 63.4 %; PLATELET COUNT 227 K/uL (130-400); RED BLOOD COUNT 3.69 M/uL (4.2-5.4); WHITE BLOOD COUNT 5.62 K/uL (4.8-10.8)
[2016-12-24 08:55] LABS: ALT/SGPT 25 U/L (12-78); BLOOD UREA NITROGEN 12 mg/dl (7-18); BUN/CREATININE RATIO 8.9 (10-20); CALCIUM 9.3 mg/dl (8.5-10.1); CARBON DIOXIDE 23 mmol/L (21-32); CHLORIDE 112 mmol/L (98-107); GLUCOSE 83 mg/dl (70-99); POTASSIUM 3.8 mmol/L (3.5-5.1); SODIUM 144 mmol/L (136-145)
[2016-12-24 09:00] LABS: ALKALINE PHOSPHATASE 77 U/L (45-117); AST/SGOT 22 U/L (15-37); PHOSPHORUS 3.4 mg/dl (2.5-4.9)
--- NOTE | 2016-12-24 10:36 | Clinical Documentation Query ---
CLINICAL DOCUMENTATION QUERY 71 year old female who presents to the Emergency Room via EMS with complaints of persistent unresponsiveness. Query #1/2 In your clinical opinion is this patient being managed for: ( X ) Sepsis present on admission (POA) due to UTI. ( ) Other explanation of clinical findings (Please Explain) ( ) Unable to determine (Please Define) ( ) Need to Discuss ( ) Not Agree The medical record reflects the following clinical findings, treatment, and risk factors. Clinical Indicators: Fever 39.4, tachycardia 125, tachypnea 28, altered mental status. Early organ failure evidenced by KAT Creatinine 1.50. +serum lactate of 3.57. Treatment: ICU hemodynamic monitoring, IVF, IV Zosyn, IV Vancomycin, IV Azithromycin, Risk Factors: Age, UTI, Query #2/2 In your clinical opinion is this patient being managed for: ( X ) Metabolic/septic encephalopathy ( ) Other explanation of clinical findings (Please Explain) ( ) Unable to determine (Please Define) ( ) Need to Discuss ( ) Not Agree The medical record reflects the following clinical findings, treatment, and risk factors. Clinical Indicators: AMS/unresponsiveness. KAT. elevated serum lactate 3.57, and fever 39.4. Treatment: ICU hemodynamic monitoring, IVF, IV Zosyn, IV Vancomycin, IV Azithromycin, Risk Factors: Age, UTI, ?Sepsis Please clarify and document your clinical opinion in the progress notes and discharge summary. Terms such as "probable", "suspected", "likely", "questionable", "possible", or "still to be ruled out" are acceptable. IF IN AGREEMENT, YOU MUST DOCUMENT ABOVE DIAGNOSTIC STATEMENT IN DAILY PROGRESS NOTES AND DISCHARGE SUMMARY. This document is not part of the patient's record. Thank You, Jacob Sibley, RN [phone]
[2016-12-24] MEDS ORDERED: METR-163 PO (13:07)
--- NOTE | 2016-12-24 13:07 | Progress Note ---
Subjective Date of Service: Dec 24, 2016. Subjective Pt evaluation today including: conversation w/ patient, conversation w/ family , physical exam, lab review, review of studies, review of inpatient medication list Saw/examined the patient in room 257 Feeling better Tearful, eager to go home oriented x 3, but underlying confusion persists Problem List Medical Problems: (1) Abdominal wall abscess Status: Acute (2) Altered level of consciousness Status: Acute (3) Ambulatory dysfunction Status: Acute (4) Chest pain Status: Acute (5) Constipation Status: Acute (6) Creatinine elevation Status: Acute (7) Encephalopathy acute Status: Acute (8) Febrile disorder Status: Acute (9) Febrile seizure Status: Acute (10) Frequent falls Status: Acute (11) Gastrointestinal perforation Status: Acute (12) Generalized weakness Status: Acute (13) Hypotension Status: Acute (14) Lactic acidemia Status: Acute (15) Orthostatic hypotension Status: Acute (16) Severe sepsis with acute organ dysfunction Status: Acute Review of Systems Constitutional: No chills, No fever Respiratory: No cough, No shortness of breath, No sputum Cardiac: No chest pain Abdomen: No diarrhea, No nausea, No pain, No vomiting Musculoskeletal: No joint pain Female : No dysuria, No urinary frequency Neurologic: + memory loss, No balance problems, No numbness/tingling, No paralysis, No vertigo, No weakness Medications Current Inpatient Medications Medications (Trade) Dose Ordered Sig/Aminata Route Start Time Stop Time Status Last Admin Dose Admin Lorazepam (Ativan Inj) 1 mg Q15M PRN IV 12/20/16 16:45 01/19/17 16:44 Albuterol/ Ipratropium 3 ml 3 ml Q4 PRN INH 12/20/16 16:45 01/19/17 16:44 Sodium Chloride 1,000 ml @ 50 mls/hr Q20H IV 12/20/16 18:45 01/19/17 18:44 12/23/16 18:10 50 MLS/HR Piperacillin Sod/ Tazobactam Sod/ Dextrose (Zosyn Iv/D5 100ml) 115 ml @ 28.75 mls/ hr Q8@0000,0800,1600 IV 12/21/16 00:00 12/31/16 00:00 12/24/16 08:03 28.75 MLS/HR Acetaminophen (Tylenol Tab) 650 mg Q4H PRN PO 12/20/16 19:15 01/19/17 19:14 Acetaminophen (Tylenol Supp) 650 mg Q4H PRN [place] 12/20/16 19:15 01/19/17 19:14 12/20/16 19:31 650 MG Heparin Sodium (Porcine) (Heparin Sq 5000 Unit/0.5ml) 5,000 unit Q12 SQ 12/20/16 21:00 01/19/17 20:59 12/24/16 08:00 5,000 UNIT Piperacillin Sod/ Tazobactam Sod (Consult) 1 ea UD PRN N/A 12/20/16 19:45 12/30/16 19:44 Pantoprazole Sodium (Protonix Tab) 40 mg QAM PO 12/22/16 09:00 01/21/17 08:59 12/24/16 07:55 40 MG Citalopram Hydrobromide (celeXA TAB) 40 mg QAM PO 12/22/16 09:00 01/21/17 08:59 12/24/16 07:55 40 MG Donepezil HCl (Aricept Tab) 5 mg QAM PO 12/22/16 09:00 01/21/17 08:59 12/24/16 07:55 5 MG Levothyroxine Sodium (Synthroid Tab) 100 mcg DAILYBB PO 12/22/16 06:00 01/21/17 05:59 12/24/16 05:55 100 MCG Risperidone (Risperdal M Tab) 0.5 mg TID PRN PO 12/21/16 17:00 01/20/17 16:59 Potassium/ Phosphorus/Sodium (Phospha 250 Neutral 155-852-130 Mg) 1 tab TIDM PO 12/22/16 12:00 01/21/17 11:59 12/24/16 11:44 1 TAB Objective Vital Signs Date Time Temp Pulse Resp B/P Pulse Ox O2 Delivery O2 Flow Rate FiO2 12/24/16 08:45 Room Air 12/24/16 08:08 96 Room Air 12/24/16 08:05 36.9 70 16 135/77 96 Room Air 12/24/16 06:56 37.2 73 18 146/74 98 Room Air 12/24/16 00:01 Room Air 12/24/16 00:00 37.0 65 18 133/63 96 Room Air 12/23/16 19:30 Room Air 12/23/16 16:30 Room Air 12/23/16 15:14 36.8 67 18 112/68 94 Room Air Physical Exam General Appearance: no apparent distress Respiratory/Chest: lungs clear, normal breath sounds, no respiratory distress, no accessory muscle use Cardiovascular: regular rate, rhythm, no edema, no murmur Abdomen: normal bowel sounds, non tender, soft Extremities: non-tender, normal inspection, no pedal edema Neurologic/Psychiatric: alert, normal mood/affect, + pertinent finding ( underlying dementia) Laboratory Results Last 24 Hours Test 12/23/16 16:21 12/23/16 20:20 12/24/16 07:08 12/24/16 07:43 Bedside Glucose 113 mg/dl 111 mg/dl 92 mg/dl Sodium Level 144 mmol/L Potassium Level 3.8 mmol/L Chloride Level 112 mmol/L Carbon Dioxide Level 23 mmol/L Anion Gap 9.0 mmol/L Blood Urea Nitrogen 12 mg/dl Creatinine 1.30 mg/dl Est Creatinine Clear Calc Drug Dose 34.6 ml/min Estimated GFR () 47.1 Estimated GFR (Non- 40.7 BUN/Creatinine Ratio 8.9 Random Glucose 83 mg/dl Calcium Level 9.3 mg/dl Phosphorus Level 3.4 mg/dl Magnesium Level 2.0 mg/dl Total Bilirubin 0.4 mg/dl Direct Bilirubin < 0.1 mg/dl Aspartate Amino Transf (AST/SGOT) 22 U/L Alanine Aminotransferase (ALT/SGPT) 25 U/L Alkaline Phosphatase 77 U/L Total Protein 5.8 gm/dl Albumin 2.6 gm/dl Test 12/24/16 08:02 12/24/16 11:24 White Blood Count 5.62 K/uL Red Blood Count 3.69 M/uL Hemoglobin 10.8 g/dL Hematocrit 31.7 % Mean Corpuscular Volume 85.9 fL Mean Corpuscular Hemoglobin 29.3 pg Mean Corpuscular Hemoglobin Concent 34.1 g/dl Platelet Count 227 K/uL Mean Platelet Volume 10.4 fL Neutrophils (%) (Auto) 63.4 % Lymphocytes (%) (Auto) 26.3 % Monocytes (%) (Auto) 5.5 % Eosinophils (%) (Auto) 4.1 % Basophils (%) (Auto) 0.5 % Neutrophils # (Auto) 3.56 K/uL Lymphocytes # (Auto) 1.48 K/uL Monocytes # (Auto) 0.31 K/uL Eosinophils # (Auto) 0.23 K/uL Basophils # (Auto) 0.03 K/uL RDW Standard Deviation 44.3 fL RDW Coefficient of Variation 14.2 % Immature Granulocyte % (Auto) 0.2 % Immature Granulocyte # (Auto) 0.01 K/uL Bedside Glucose 102 mg/dl Assessment and Plan This is a 71 year old female with PMH of dementia, HTN, CKD stage 3, anxiety/ depression, hypothyroidism presents with altered mental status/confusion Delirium on Dementia 12/24 patient seems to be back up worker to baseline underlying dementia noted continue Aricept will switch to Flagyl for antibiotics at home outpatient neurology and PCP follow-up 12/23 Possibly related to a viral infection vs. UTI Currently on azithro and Zosyn maintenance fluids running check for c. diff Head CT, EEG noted appreciate neurology input patient seems to be back to baseline, underlying dementia continue Aricept outpatient neurology and PCP f/u UTI Gardnerella-like bacilli noted on urine culture for now, continue abx; will switch on discharge Acute Kidney Injury superimposed on CKD stage 3 creat on admission 1.5 given IVFs creat improved to 1.3, closer to baseline avoid nephrotoxic agents when able Hypokalemia/Hypomagnesemia replace and recheck in AM (12/24) Anxiety/Depression continue home medications DVT ppx subq heparin DNR if can provide 24 hour care; patient may return home Discharge planning: home with home health
--- NOTE | 2016-12-24 13:09 | Discharge Instructions ---
Discharge Instructions Admission Reason for Admission: Change In Mental Status, Seizure Discharge Discharge Diagnosis / Problem: Possible Delirium related to UTI Discharge Goals Goal(s): Decrease discomfort, Improve function Activity Recommendations Activity Limitations: resume your previous activity . Instructions / Follow-Up Instructions / Follow-Up Please follow-up with Dr. Joshi on December 29 @ 10:50AM * You will be discharged on Flagyl (antibiotic) for five days total * Follow-up with neurology as outpatient Current Hospital Diet Patient's current hospital diet: AHA Diet (Heart Healthy) Discharge Diet Recommended Diet: Regular Diet Pending Studies Studies pending at discharge: no Medical Emergencies . Who to Call and When: Medical Emergencies: If at any time you feel your situation is an emergency, please call 911 immediately. . Non-Emergent Contact Non-Emergency issues call your: Primary Care Provider . . "Provider Documentation" section prepared by Monse Hernandez. VTE Core Measure Inpt VTE Proph given/why not?: Unfractionated heparin SQ
--- NOTE | 2016-12-24 13:10 | Discharge Summary ---
Discharge Summary Admission Date: Dec 20, 2016 at 16:29 Discharge Date: Dec 24, 2016 Discharge Disposition: Home with services Principal Diagnosis: Delirium on Dementia UTI Medication Reconciliation New Medications: Metronidazole (Flagyl) 500 Mg Tab 500 MG PO BID for 5 Days, #10 TAB Continued Medications: Acetaminophen (Tylenol) 500 Mg Tab 1000 MG PO Q8 PRN for Pain, TAB Bupropion HCl (Bupropion HCl Xl) 300 Mg Tabcr 300 MG PO DAILY Citalopram Hydrobromide (Citalopram Hydrobromide) 40 Mg Tab 40 MG PO DAILY Docusate Sodium (Docusate Sodium) 100 Mg Cap 100 MG PO BID Donepezil HCl (Aricept) 5 Mg Tab 5 MG PO QAM TAKE THIS MEDICATION WITH BREAKFAST Levothyroxine Sodium (Levothyroxine Sodium) 100 Mcg Tab 100 MCG PO DAILY Omeprazole (Prilosec) 20 Mg Capcr 20 MG PO BID, CAP Ranitidine Hcl (Zantac) 150 Mg Tab 150 MG PO BID, TAB Admission Information HPI (per Admitting provider): 71 YO F with past medical Hx of Dementia , CKD stage 3 brought to ED -with seizure like activity History obtained form ER attending and Family members as pt was unable to provide any meaningful information due to changed mental status Pt was found to be unresponsive at Home by , was Febrile having chills and rigor EMS was called , pt was found to be in SVT -later developed seizure , IV Ativan was given pt remained obtunded in ED tachycardic, temp 39.4 Lab showed : mild elevation of ESR normal white count , Lactic acid of ~3 Cr 1.5 after transfer to ICU pt woke up moving all limbs , remains confused , unable to verbalize any discomfort Physical Exam (per Admitting): General Appearance: + pertinent finding (confused , moving all limbs ) Head: normocephalic, atraumatic Respiratory/Chest: lungs clear, no respiratory distress Cardiovascular: + tachycardia Abdomen/GI: soft Extremities/Musculoskelatal: no pedal edema Neurologic/Psych: + disoriented, + pertinent finding (confused, agitated ) Hospital Course This is a 71 year old female with PMH of dementia, HTN, CKD stage 3, anxiety/ depression, hypothyroidism presents with altered mental status/confusion Delirium on Dementia 12/24 patient seems to be bareback rider to baseline underlying dementia noted continue Aricept will switch to Flagyl for antibiotics at home outpatient neurology and PCP follow-up 12/23 Possibly related to a viral infection vs. UTI Currently on azithro and Zosyn maintenance fluids running check for c. diff Head CT, EEG noted appreciate neurology input patient seems to be back to baseline, underlying dementia continue Aricept outpatient neurology and PCP f/u UTI Gardnerella-like bacilli noted on urine culture for now, continue abx; will switch on discharge Acute Kidney Injury superimposed on CKD stage 3 creat on admission 1.5 given IVFs creat improved to 1.3, closer to baseline avoid nephrotoxic agents when able Hypokalemia/Hypomagnesemia replace and recheck in AM (12/24) Anxiety/Depression continue home medications DVT ppx subq heparin DNR if can provide 24 hour care; patient may return home Discharge planning: home with home health Total time spent on discharge = 33 minutes This includes examination of the patient, discharge planning, medication reconciliation, and communication with other providers. Discharge Instructions Please follow-up with Dr. Joshi on December 29 @ 10:50AM * You will be discharged on Flagyl (antibiotic) for five days total * Follow-up with neurology as outpatient
[2016-12-24 13:21] VITALS: BP 135/77; PULSE 70; TEMP 36.9; O2SAT 96
--- NOTE | 2016-12-29 13:07 | EDITING REQUIRED CODING QUERY ---
SEPSIS To promote full compliance with coding requirements relating to patient care, physician participation is requested in all cases of commercial horticulture instructor uncertainty. Please assist us with the question(s) below: In responding to this query, please exercise your independent professional judgement. The fact that a question is asked does not imply that any particular answer is desired or expected. We appreciate your clarification on this issue. Throughout the medical record, you have clearly documented a localized infection and your patient has clinical evidence of a generalized sepsis or severe sepsis. The term urosepsis is a nonspecific entity and is coded as an UTI. If the patient has sepsis, severe sepsis, from an urinary source or some other source, please clarify in your response below. The medical record reflects the following clinical findings: Patient admitted with SVT, seizure after unresponsive at home. KAT & encephalopathy. Please check the phrase below that applies. Thanks for your help! Jesus Krishnan, CORY C[facility] ( )Bacteremia (Nonspecific laboratory finding of bacteria in the blood) Specify Organism ( ) Present on Admission ( ) Not present on admission ( ) Unable to clinically determine ( ) Septicemia (Systemic disease associated with the presence of pathogenic microorganisms in the blood): Specify Organism ( ) Present on Admission ( ) Not present on admission ( ) Unable to clinically determine ( ) Sepsis Specify Organism Specify Associated Condition/Diagnosis ( ) Present on Admission ( ) Not present on admission ( ) Unable to clinically determine ( ) Severe Sepsis (Sepsis associated with acute organ dysfunction) Specify Organism Specify Associated Condition/Diagnosis ( ) Present on Admission ( ) Not present on admission ( ) Unable to clinically determine ( ) Septic Shock (Severe sepsis with acute circulatory failure, unexplained by other causes) ( ) Present on Admission ( ) Not present on admission ( ) Unable to clinically determine () Other, patient has: She does not have positive blood cultures, no bacteremia, no septicemia
[2017-04-24] MEDS ORDERED: CYNI1000 IM (16:42)
[2017-04-24] MEDS ORDERED: LEVE500T PO (16:42)
== END 2016-12-24 13:45 | disposition home health service (06) | DRG 689 ==
LOC: ENRESERVTM → ENRESERVDT → EDBD 15:42 → C.ED 15:43 → C.MSICU 16:29 → C.MS2W 12-21 15:24 → EDBEDREQ 12-21 15:41
PROVIDERS: ADMIT Hospitalist; ATTEND Family Medicine
DX: N39.0 Urinary tract infection, site not specified (principal); G93.40 Encephalopathy, unspecified; I47.1 Supraventricular tachycardia; E87.2 Acidosis; N17.9 Acute kidney failure, unspecified; F03.90 Unspecified dementia, unspecified severity, without behavioral disturbance, psychotic disturbance, mood disturbance, and anxiety; K21.9 Gastro-esophageal reflux disease without esophagitis; I12.9 Hypertensive chronic kidney disease with stage 1 through stage 4 chronic kidney disease, or unspecified chronic kidney disease; N18.3 Chronic kidney disease, stage 3 (moderate); F17.210 Nicotine dependence, cigarettes, uncomplicated; E83.42 Hypomagnesemia; E87.6 Hypokalemia; F32.9 Major depressive disorder, single episode, unspecified; F41.9 Anxiety disorder, unspecified; E86.0 Dehydration; Z86.14 Personal history of Methicillin resistant Staphylococcus aureus infection; I70.1 Atherosclerosis of renal artery; E03.9 Hypothyroidism, unspecified; I95.1 Orthostatic hypotension; B96.89 Other specified bacterial agents as the cause of diseases classified elsewhere; Z66 Do not resuscitate; R56.9 Unspecified convulsions; Z96.659 Presence of unspecified artificial knee joint

== ENCOUNTER 2017-04-22 13:56 | Inpatient (IN) | payer OTHER ==
[~2017-04-22] VITALS: Ht 160 cm; Wt 64.7 kg
[~2017-04-22 13:56] MED LIST changes: +ACET-1256 PO; -AMLO-110 PO; +CITA40TA4 PO; -CLX20 PO; +DOCU100C31 PO; -PRAV40TA2 PO; +RANI150T3 PO; +WLLXL300 PO
[2017-04-22] MEDS ORDERED: SODIUM CHLORIDE 0.9% 1000ML 1,000 ML IV SCH (14:25)
[2017-04-22] MEDS ORDERED: LORAZEPAM 2 MG/ML 1 ML VIAL ONE (14:28)
[2017-04-22] MEDS ORDERED: LEVETIRACTAM 500 MG in DEXTROSE 5% 100ML IV STA (14:31)
--- NOTE | 2017-04-22 14:39 | DIAGNOSTIC IMAGING REPORT ---
HEAD CT NONCONTRAST CT DOSE: 818.51 mGy.cm HISTORY: Seizure. Stroke symptoms. TECHNIQUE: Multiaxial CT images of the head were performed without the use of intravenous contrast. Automated exposure control was utilized for this study. Comparison: Head CT 12/20/2016. Findings: The paranasal sinuses and mastoid air cells are clear. The calvarium and skull base are intact. There is no mass, hematoma, midline shift, acute infarct. White matter hypodensity is nonspecific but suggestive of microvascular ischemic change. The ventricles and sulci demonstrate mild age-related involutional changes. Impression: No significant change compared to the prior study. No acute intracranial abnormality. Electronically signed by: Jed Goodman M.D. 04/22/2017 2:38 PM Dictated Date/Time: 04/22/2017 2:30 PM
[2017-04-22] MEDS ORDERED: LORAZEPAM 2 MG/ML 1 ML VIAL IV ONE (14:45)
--- NOTE | 2017-04-22 14:46 | DIAGNOSTIC IMAGING REPORT ---
CHEST ONE VIEW PORTABLE CLINICAL HISTORY: Stroke. COMPARISON STUDY: Chest radiograph December 21, 2016. FINDINGS: Deformity of the right fifth rib is incidentally noted. Patient is rotated. Cardiomediastinal silhouette is stable. There is no evidence of pulmonary edema. No consolidation is identified. IMPRESSION: No acute cardiopulmonary findings. No change in appearance of the chest. Electronically signed by: Jaime Nagel M.D. 04/22/2017 2:45 PM Dictated Date/Time: 04/22/2017 2:42 PM
--- NOTE | 2017-04-22 14:50 | EMERGENCY ROOM VISIT NOTE ---
History Report prepared by Joy: Kiara Middleton Under the Supervision of: Dr. Aaron Phan M.D. First contact with patient: 14:04 Chief Complaint: SEIZURE Stated Complaint: SEIZURE History of Present Illness The patient is a 71 year old female who presents to the Emergency Room with complaints of sudden seizure like activity that occurred prior to arrival. Per the patient's , the patient was sitting at the dinning room table and then began experiencing seizure like activity in her upper extremities. He reports that the patient's seizure lasted approximately three minutes and was post ictal until EMS arrived. The patient and her deny her having any seizure history, but according to records, the patient has a history of a seizure. Per nursing staff, the patient was taken to CT of her brain and while there the patient had slightly garbled speech. Nursing staff reports that the patient began actively seizing after the CT scan. Nursing staff reports that the patient's speech went completely garbled and she developed a rightward gaze. There was upper extremity shaking noted. Nursing staff reports that the seizure like activity lasted 30 seconds and was only located in her upper extremities. The history is limited secondary to the patient being post ictal. Source of History: spouse/significant other (), nursing staff History Limited By: AMS, other (post ictal) Onset: prior to arrival Position: other (global) Quality: other (seizure like activity) Timing: other (sudden) Note: Associated Symptoms: garbled speech, post ictal rightward gaze Review of Systems The HPI and Ros are limited secondary to the patient's mental status. Past Medical & Surgical Medical Problems: (1) Ambulatory dysfunction (2) Anxiety (3) Change in mental state (4) CKD (chronic kidney disease) stage 3, GFR 30-59 ml/min (5) Dementia (6) Depression (7) Dyslipidemia (8) GERD (gastroesophageal reflux disease) (9) HTN (hypertension) (10) Hypothyroidism (11) rule out CVA (12) Seizure (13) Seizure-like activity (14) sepsis (15) Wound infection Surgical Problems: (1) S/P cholecystectomy (2) S/P knee replacement Family History Cancer Social History Smoking Status: Current Every Day Smoker Alcohol Use: none Drug Use: none Marital Status: Housing Status: lives with family Occupation Status: retired Current/Historical Medications Scheduled Bupropion (Wellbutrin Sr), 200 MG PO BID Citalopram Hydrobromide (Citalopram Hydrobromide), 40 MG PO DAILY Docusate Sodium (Docusate Sodium), 100 MG PO BID Donepezil HCl (Aricept), 5 MG PO QAM Levothyroxine Sodium (Levothyroxine Sodium), 100 MCG PO DAILY Omeprazole (Prilosec), 20 MG PO BID Pravastatin Sod (Pravastatin Sodium), 40 MG PO DAILY Allergies Coded Allergies: Codeine (Verified Allergy, Unknown, 08/25/16) Physical Exam Vital Signs Date Time Temp Pulse Resp B/P Pulse Ox O2 Delivery O2 Flow Rate FiO2 04/22/17 15:41 74 18 144/59 98 Nasal Cannula 2.0 04/22/17 15:00 99 Nasal Cannula 2.0 04/22/17 14:57 82 22 129/57 99 Nasal Cannula 2.0 04/22/17 14:10 36.9 75 18 142/52 100 Room Air 04/22/17 14:04 76 Physical Exam GENERAL: Patient is in no acute distress. HEENT: No acute trauma, normocephalic atraumatic, Pupils are equal round and reactive to light, mucous membranes moist, no nasal congestion, no scleral icterus. NECK: No stridor, no adenopathy, no meningismus, trachea is midline. LUNGS: Clear to auscultation bilaterally, no wheeze, no rhonchi, breath sounds equal. HEART: Without murmurs gallops or rubs, regular rate and rhythm. ABDOMEN: Soft, nontender, bowel sounds positive, no hernias, no peritonitis. EXTREMITIES: No cyanosis or edema, full range of motion of all the joints without pain or difficulty, no signs for acute trauma. NEUROLOGIC: Currently nonverbal with gaze to left, eyes open to voice--this evaluation was done right after her seizure like activity. Upon reassessment, the patient appears to have significant weakness in her right arm and right leg, with a gaze preference to her left. She remains nonverbal. SKIN: No rash, no jaundice, no diaphoresis. Medical Decision & Procedures ER Provider Diagnostic Interpretation: Radiology results as stated below per my review and radiologist interpretation: HEAD CT NONCONTRAST CT DOSE: 818.51 mGy.cm HISTORY: Seizure. Stroke symptoms. TECHNIQUE: Multiaxial CT images of the head were performed without the use of intravenous contrast. Automated exposure control was utilized for this study. Comparison: Head CT 12/20/2016. Findings: The paranasal sinuses and mastoid air cells are clear. The calvarium and skull base are intact. There is no mass, hematoma, midline shift, acute infarct. White matter hypodensity is nonspecific but suggestive of microvascular ischemic change. The ventricles and sulci demonstrate mild age-related involutional changes. Impression: No significant change compared to the prior study. No acute intracranial abnormality. Electronically signed by: Jed Goodman M.D. 04/22/2017 2:38 PM Dictated Date/Time: 04/22/2017 2:30 PM CHEST ONE VIEW PORTABLE CLINICAL HISTORY: Stroke. COMPARISON STUDY: Chest radiograph December 21, 2016. FINDINGS: Deformity of the right fifth rib is incidentally noted. Patient is rotated. Cardiomediastinal silhouette is stable. There is no evidence of pulmonary edema. No consolidation is identified. IMPRESSION: No acute cardiopulmonary findings. No change in appearance of the chest. Electronically signed by: Jaime Nagel M.D. 04/22/2017 2:45 PM Dictated Date/Time: 04/22/2017 2:42 PM Laboratory Results 04/22/17 16:11 Red Blood Count 4.07, Mean Corpuscular Volume 89.2, Mean Corpuscular Hemoglobin 30.0, Mean Corpuscular Hemoglobin Concent 33.6, Mean Platelet Volume 10.0, Neutrophils (%) (Auto) 80.7, Lymphocytes (%) (Auto) 11.5, Monocytes (%) (Auto) 6.1, Eosinophils (%) (Auto) 1.2, Basophils (%) (Auto) 0.4, Neutrophils # (Auto) 5.95, Lymphocytes # (Auto) 0.85, Monocytes # (Auto) 0.45, Eosinophils # (Auto) 0.09, Basophils # (Auto) 0.03 04/22/17 16:11 Test 04/22/17 14:40 04/22/17 14:41 04/22/17 14:48 04/22/17 14:52 Bedside Prothrombin Time INR 1.1 (0.9-1.1) Bedside Glucose 109 mg/dl (70-90) Bedside Troponin I 0.000 ng/ml (0-0.045) Bedside Hemoglobin 11.9 g/dl (12.0-16.0) Bedside Hematocrit 35 % (37-47) Bedside Sodium 140 mEq/L (135-144) Bedside Potassium 4.3 mEq/L (3.3-5.0) Bedside Chloride 106 mEq/L (101-112) Bedside Total CO2 20 mEq/l (24-31) Bedside Blood Urea Nitrogen 25 mg/dl (7-18) Bedside Creatinine 1.6 mg/dl (0.6-1.3) Bedside Glucose (other) 100 mg/dl (70-99) Bedside Ionized Calcium (Kleber) 1.27 mmol/l (1.12-1.32) Test 04/22/17 16:11 White Blood Count 7.38 K/uL (4.8-10.8) Red Blood Count 4.07 M/uL (4.2-5.4) Hemoglobin 12.2 g/dL (12.0-16.0) Hematocrit 36.3 % (37-47) Mean Corpuscular Volume 89.2 fL (80-100) Mean Corpuscular Hemoglobin 30.0 pg (25-34) Mean Corpuscular Hemoglobin Concent 33.6 g/dl (32-36) Platelet Count 272 K/uL (130-400) Mean Platelet Volume 10.0 fL (7.4-10.4) Neutrophils (%) (Auto) 80.7 % Lymphocytes (%) (Auto) 11.5 % Monocytes (%) (Auto) 6.1 % Eosinophils (%) (Auto) 1.2 % Basophils (%) (Auto) 0.4 % Neutrophils # (Auto) 5.95 K/uL (1.4-6.5) Lymphocytes # (Auto) 0.85 K/uL (1.2-3.4) Monocytes # (Auto) 0.45 K/uL (0.11-0.59) Eosinophils # (Auto) 0.09 K/uL (0-0.5) Basophils # (Auto) 0.03 K/uL (0-0.2) RDW Standard Deviation 44.5 fL (36.4-46.3) RDW Coefficient of Variation 13.6 % (11.5-14.5) Immature Granulocyte % (Auto) 0.1 % Immature Granulocyte # (Auto) 0.01 K/uL (0.00-0.02) Prothrombin Time 10.5 SECONDS (9.0-12.0) Prothromb Time International Ratio 1.0 (0.9-1.1) Activated Partial Thromboplast Time 21.1 SECONDS (21.0-31.0) Partial Thromboplastin Ratio 0.8 Anion Gap 7.0 mmol/L (3-11) Est Creatinine Clear Calc Drug Dose 30.1 ml/min Estimated GFR () 39.6 Estimated GFR (Non- 34.2 BUN/Creatinine Ratio 15.6 (10-20) Calcium Level 9.3 mg/dl (8.5-10.1) Magnesium Level 2.1 mg/dl (1.8-2.4) Total Creatine Kinase 49 U/L (26-192) Creatine Kinase MB 1.2 ng/ml (0.5-3.6) Creatine Kinase MB Ratio 2.4 (0-3.0) Troponin I < 0.015 ng/ml (0-0.045) Thyroid Stimulating Hormone (TSH) 1.690 uIu/ml (0.300-4.500) Free Thyroxine 1.19 ng/dl (0.80-1.60) Laboratory results reviewed by me. Medications Administered Medications (Trade) Dose Ordered Sig/Aminata Route Start Time Stop Time Status Last Admin Dose Admin Sodium Chloride 1,000 ml @ 50 mls/hr Q20H IV 04/22/17 14:25 05/22/17 14:24 04/22/17 14:25 50 MLS/HR Levetiracetam 500 mg/Dextrose 105 ml @ 420 mls/hr NOW STAT IV 04/22/17 14:31 04/22/17 14:45 DC 04/22/17 14:31 420 MLS/HR Sodium Chloride (Nss 1000ml) 1,000 ml @ 999 mls/hr Q1H1M STAT IV 04/22/17 15:57 04/22/17 16:57 04/22/17 15:57 999 MLS/HR Aspirin (Aspirin Supp) 300 mg NOW STAT MT 04/22/17 16:22 04/22/17 16:23 DC 04/22/17 16:55 300 MG ECG Indication: other (seizure) Rate (beats per minute): 86 Rhythm: normal sinus Findings: no acute ischemic change, no ectopy ED Course 1405: The patient was evaluated in room A3. A complete history and physical exam was performed by the medical student. 1425: Ordered Sodium Chloride 1000 ml @ 50 mls/hr IV. 1427: The patient was evaluated in room A3. A complete history and physical exam was performed. At this time the patient arrived back to the room and was actively seizing. 1428: Ordered Ativan Inj 2 mg .route. 1431: Ordered Levetiracetam 500 mg/Dextrose 105 ml @ 420 mls/hr IV. 1438: A code stroke alert was called at this time. 1445: I discussed the patient's case with Dr. Castillo, [facility]. He states that he will sign on via Telestroke to evaluate the patient, but doubts that he will recommend TPA due to the complications. 1448: I reevaluated the patient at this time and the patient appears to have significant weakness in her right arm and right leg. She additionally still has a gaze preference to her left. I updated the patient's family at this time and they understand the treatment plan and exam findings thus far. 1538: Per the medical student, Dr. Baldwin, [facility] has decided against administering TPA. 1554: I discussed the patients case with Dr. Castillo, [facility]. He suggests MRI/MRA of the brain and MRI of the neck. He states that the patient should be evaluated in the hospital for seizure precautions, and stroke precautions. 1557: Ordered Sodium Chloride 1000 ml @ 999 mls/hr IV. 1600: I reevaluated the patient and she is still nonverbal, but moving her extremities--she still appears weak on the right side. I discussed the exam findings with her and her family and I discussed the treatment plan. They verbalized complete understanding and agreement. The patient will be evaluated for further treatment. 1603: I discussed the patients case with Vane Lucas PA-C. She is going to evaluate the patient for further treatment. Medical Decision The patient is a 71 year old female who presents to the ED with complaints of a seizure. Differential diagnoses considered include stroke, CVA, intracranial bleeding, electrolyte imbalance, dysrhythmia, anemia, infection, seizure disorder. There is no leukocytosis or concerning anemia. No significant electrolyte abnormality, kidney failure or hepatitis. There is no coagulopathy. The patient appears to be in a euthyroid state. EKG shows a normal sinus rhythm, no acute ischemia. Cardiac enzyme testing times one is not consistent with acute cardiac injury. Chest x-ray does not show pneumonia or mediastinal widening. There was no CHF. Brain CT showed no acute bleed or mass effect. On exam, the patient was somnolent and nonverbal. She appeared to have weakness of her right side and a gaze to the left. The patient presented after a seizure like event. Initial stroke scale as per the nursing staff was 2. The patient went to CT and then on the way back from CT, had a 2nd upper extremity shaking episode described as a seizure. Her gaze was to the right initially. After the seizure stopped, I assessed the patient, she had significant right-sided weakness in the arm and leg. Her gaze was to the left, she was nonverbal. The patient was aggressively managed. She received IV saline, IV Ativan and IV Keppra. A stroke alert was called. The patient was seen by the neurologist via telemedicine, the patient is not a candidate for TPA given this complicated history. The patient apparently also has had a previous GI bleed. As per the stroke neurologist, the patient's right -sided weakness is improving. The weakness may actually be a result of the seizure. The patient did receive additional IV saline, she was given rectal aspirin. I spoke to the family at length. Case management has been involved, admission/ observation is clearly warranted. Further workup is needed. The on-call hospitalist was consulted. Medication Reconciliation: I attest that I have personally reviewed the patient' s current medication list. Blood Pressure Screening: Patient was found to have an elevated blood pressure and was referred to their primary doctor for recheck and further treatment. Consults Time Called: [phone] Consulting Physician: Dr. Castillo, [facility] Returned Call: [phone] I discussed the patient's case with Dr. Castillo, [facility]. He states that he will sign on via Telestroke to evaluate the patient, but doubts that he will recommend TPA due to the complications. Additional Consults: Time Called: [id number] Consulted Physician: Vane Lucas PA-C Returned Call: [phone] Additional Comments: I discussed the patients case with Vane Lucas PA-C. She is going to evaluate the patient for further treatment. Impression Primary Impression: Seizure Additional Impression: Stroke-like symptoms Critical Care I have personally spent greater than 35 minutes of critical care time in the direct management of this patient. This includes bedside care, interpretation of diagnostic studies, and testing, discussion with consultants, patient, and family members, and other required patient management activities. This 35 minutes is in excess of all separately billable procedures. Scribe Attestation The scribe's documentation has been prepared under my direction and personally reviewed by me in its entirety. I confirm that the note above accurately reflects all work, treatment, procedures, and medical decision making performed by me. Departure Information Dispostion Being Evaluated By Hospitalist Referrals Art Joshi M.D. (PCP) Stroke History Stroke t-PA Criteria Reviewed Does NOT meet criteria for t-PA Reason t-PA Not Given Treatment not indicated Problem Qualifiers
[2017-04-22 15:05] LABS: ISTAT CREATININE 1.6 mg/dl (0.6-1.3); ISTAT HEMOGLOBIN 11.9 g/dl (12.0-16.0); ISTAT IONIZED CALCIUM 1.27 mmol/l (1.12-1.32)
[2017-04-22] MEDS ORDERED: BUPR200T2 PO (15:18)
[2017-04-22] MEDS ORDERED: PRVC40 PO (15:18)
[2017-04-22] MEDS ORDERED: SODIUM CHLORIDE 0.9% 1000ML 1,000 ML IV STA (15:57)
[2017-04-22 16:20] LABS: BASO % 0.4 %; BASO ABS # 0.03 K/uL (0-0.2); COMPLETE YES; EOS % 1.2 %; HEMATOCRIT 36.3 % (37-47); IG% 0.1 %; LYMPH % 11.5 %; LYMPH ABS # 0.85 K/uL (1.2-3.4); MEAN CELL VOLUME 89.2 fL (80-100); MEAN CORPUSCULAR HGB CONC 33.6 g/dl (32-36); MONO % 6.1 %; NEUT % 80.7 %; PLATELET COUNT 272 K/uL (130-400); RED BLOOD COUNT 4.07 M/uL (4.2-5.4); WHITE BLOOD COUNT 7.38 K/uL (4.8-10.8)
[2017-04-22] MEDS ORDERED: ASPIRIN 300 MG SUPP PR STA (16:22)
[2017-04-22 16:37] LABS: BLOOD UREA NITROGEN 23 mg/dl (7-18); GLUCOSE 88 mg/dl (70-99)
[2017-04-22 16:38] LABS: BUN/CREATININE RATIO 15.6 (10-20); CALCIUM 9.3 mg/dl (8.5-10.1); CARBON DIOXIDE 26 mmol/L (21-32); CHLORIDE 110 mmol/L (98-107); MAGNESIUM 2.1 mg/dl (1.8-2.4); POTASSIUM 4.6 mmol/L (3.5-5.1); SODIUM 143 mmol/L (136-145)
[2017-04-22 16:44] LABS: PARTIAL THROMBOPLASTIN RATIO 0.8; PROTHROMBIN TIME (PATIENT) 10.5 SECONDS (9.0-12.0)
[2017-04-22 16:48] LABS: CKMB/CK RATIO 2.4 (0-3.0)
[2017-04-22 17:21] LABS: URINE APPEARANCE CLEAR (CLEAR); URINE BILIRUBIN NEG (NEG); URINE COLOR YELLOW; URINE NITRITE NEG (NEG); URINE PH 7.5 (4.5-7.5); URINE SPECIFIC GRAVITY 1.019 (1.000-1.030); UROBILINOGEN NEG (NEG); ZZURINE CULT IF INDIC CATH NO
[2017-04-22 17:22] LABS: MANUAL MICROSCOPIC REQUIRED? NO; REVIEW REQ? NO
[2017-04-22] MEDS ORDERED: ONDANSETRON INJ 2 MG/ML 2 ML VIAL IV PRN (17:30)
[2017-04-22] MEDS ORDERED: ACETAMINOPHEN 325 MG TAB PO PRN (17:30)
[2017-04-22] MEDS ORDERED: PHARMACIST DISCHARGE MED REC CONSULT PRN (17:30)
[2017-04-22] MEDS ORDERED: BUPRTAB51 PO (17:37)
[2017-04-22 18:10] VITALS: BP 174/76; PULSE 79; TEMP 37.6; O2SAT 96; Ht 160 cm; Wt 64.7 kg
--- NOTE | 2017-04-22 18:29 | History and Physical ---
History & Physical Date & Time of Service: April 22, 2017 at 17:38 Chief Complaint: Seizure Primary Care Physician: Art Joshi M.D. History of Present Illness Source: family ( and daughter at bedside), clinic records, hospital records This is a 71 y/o female with PMH of HTN, HL, chronic smoker, hx PUD, dementia, and other problems listed below who presents to the ED for seizure like activity. states pt was at baseline until 2 pm while sitting she developed bilateral upper extremity shaking with eyes closed and patient unresponsive.. states this lasted 10-15 minutes. No incontinence or tongue biting noted. After episode patient opened eyes but was not focusing on or responding verbally. 911 was called and patient was brought to ED by ambulance. In hospital on way back from CT scan patient had seizure activity of upper extremities lasting 30 seconds witnessed by RN. Speech was garbled and developed rightward gaze. Pt received IV ativan and IV Keppra. Per ER provider after seizure activity patient was noted to have weakness in right arm and leg with gaze preference on the left and was nonverbal. Stroke alert was called with Dr. Anna Frankel [facility] neurology who decided against tPA. Daughter states at baseline patient is oriented early in the day but has sundowning from 1 pm onwards- becomes disoriented to year/ place/ situation and agitated "wants to go home" to her childhood home. Patient was not ill recently. No recent fever, chills, complaints of EDGE, facial droop, swallowing difficulty, URI symptoms, cough, SOB, complaints of chest pain, vomiting, diarrhea, urinary complaints as per family. No hx of TIA or CVA. No hx of seizure disorder per family. Had question of seizure activity on admission Nov 2016 for delirium on dementia with UTI. Had neuro evaluation by Ina Rae and Dr. Smith. EEG showed global encephalopathy. No seizure meds were started. Has followed up with neuro Kaitlin LEWIS for dementia. Past Medical/Surgical History Medical Problems: (1) Anxiety Status: Chronic (2) CKD (chronic kidney disease) stage 3, GFR 30-59 ml/min Status: Chronic (3) Dementia Status: Chronic (4) Depression Status: Chronic (5) Dyslipidemia Status: Chronic (6) GERD (gastroesophageal reflux disease) Status: Chronic (7) HTN (hypertension) Status: Chronic (8) Hypothyroidism Status: Chronic (9) PUD (peptic ulcer disease) Status: Chronic Surgical Problems: (1) S/P cholecystectomy Status: Resolved (2) S/P knee replacement Status: Resolved (3) S/p thoracic laminectomy Status: Chronic (4) S/P tubal ligation Status: Chronic Family History Cancer Social History Smoking Status: Current Every Day Smoker (1 pack per day) Alcohol Use: none Drug Use: none Marital Status: Housing status: lives with significant other Occupational Status: retired Immunizations History of Influenza Vaccine: No History of Tetanus Vaccine?: No History of Pneumococcal: Yes Pneumococcal Date: May 17, 2008 History of Hepatitis B Vaccine: No Multi-Drug Resistant Organisms History of MDRO: Yes Type of MDRO: MRSA Allergies Coded Allergies: Codeine (Verified Allergy, Unknown, 08/25/16) Home Medications Scheduled Bupropion Hcl (Wellbutrin Xl), 1 TAB PO DAILY Citalopram Hydrobromide (Citalopram Hydrobromide), 40 MG PO DAILY Donepezil HCl (Aricept), 5 MG PO QAM Levothyroxine Sodium (Levothyroxine Sodium), 100 MCG PO DAILY Omeprazole (Prilosec), 20 MG PO BID Review of Systems Not obtainable from patient due to altered mental status. Physical Exam Vital Signs Date Time Temp Pulse Resp B/P Pulse Ox O2 Delivery O2 Flow Rate FiO2 04/22/17 17:17 78 18 161/67 99 Nasal Cannula 2.0 04/22/17 16:45 84 18 166/76 98 Nasal Cannula 2.0 04/22/17 15:41 74 18 144/59 98 Nasal Cannula 2.0 04/22/17 15:00 99 Nasal Cannula 2.0 04/22/17 14:57 82 22 129/57 99 Nasal Cannula 2.0 04/22/17 14:10 36.9 75 18 142/52 100 Room Air 04/22/17 14:04 76 General Appearance: + pertinent finding (lethargic elderly female, awakens to verbal stimulation, follows some commands but not consistently, and daugther at bedside) Head: normocephalic, atraumatic Eyes: normal inspection, PERRL, + pertinent finding (unable to cooperative with EOM exam) ENT: hearing grossly normal, pharynx normal Neck: supple, trachea midline Respiratory/Chest: lungs clear, normal breath sounds, no respiratory distress Cardiovascular: regular rate, rhythm, no murmur Abdomen/GI: normal bowel sounds, non tender, soft Extremities/Musculoskelatal: no calf tenderness, no pedal edema Neurologic/Psych: alert, normal mood/affect, + pertinent finding (intermittent garbled nonsensical speech alternating with clear appropriate speech. no facial droop. moves all extremities equally on command. oriented to hospital, names daughter at bedside, unable to answer the year. unable to describe recent events. ) Skin: normal color, warm/dry Diagnostics Laboratory Results Results Past 24 Hours Test 04/22/17 14:40 04/22/17 14:41 04/22/17 14:48 04/22/17 14:52 Range/Units Bedside Prothrombin Time INR 1.1 0.9-1.1 Bedside Glucose 109 70-90 mg/dl Bedside Troponin I 0.000 0-0.045 ng/ml Bedside Hemoglobin 11.9 12.0-16.0 g/dl Bedside Hematocrit 35 37-47 % Bedside Sodium 140 135-144 mEq/L Bedside Potassium 4.3 3.3-5.0 mEq/L Bedside Chloride 106 101-112 mEq/L Bedside Total CO2 20 24-31 mEq/l Anion Gap 20.0 16-25 mmol/L Bedside Blood Urea Nitrogen 25 7-18 mg/dl Bedside Creatinine 1.6 0.6-1.3 mg/dl Bedside Glucose (other) 100 70-99 mg/dl Bedside Ionized Calcium ([place]) 1.27 1.12-1.32 mmol/l Test 04/22/17 16:11 04/22/17 16:45 04/22/17 17:31 04/22/17 17:32 Range/Units White Blood Count 7.38 4.8-10.8 K/uL Red Blood Count 4.07 4.2-5.4 M/uL Hemoglobin 12.2 12.0-16.0 g/dL Hematocrit 36.3 37-47 % Mean Corpuscular Volume 89.2 80-100 fL Mean Corpuscular Hemoglobin 30.0 25-34 pg Mean Corpuscular Hemoglobin Concent 33.6 32-36 g/dl Platelet Count 272 130-400 K/uL Mean Platelet Volume 10.0 7.4-10.4 fL Neutrophils (%) (Auto) 80.7 % Lymphocytes (%) (Auto) 11.5 % Monocytes (%) (Auto) 6.1 % Eosinophils (%) (Auto) 1.2 % Basophils (%) (Auto) 0.4 % Neutrophils # (Auto) 5.95 1.4-6.5 K/uL Lymphocytes # (Auto) 0.85 1.2-3.4 K/uL Monocytes # (Auto) 0.45 0.11-0.59 K/uL Eosinophils # (Auto) 0.09 0-0.5 K/uL Basophils # (Auto) 0.03 0-0.2 K/uL RDW Standard Deviation 44.5 36.4-46.3 fL RDW Coefficient of Variation 13.6 11.5-14.5 % Immature Granulocyte % (Auto) 0.1 % Immature Granulocyte # (Auto) 0.01 0.00-0.02 K/uL Prothrombin Time 10.5 9.0-12.0 SECONDS Prothromb Time International Ratio 1.0 0.9-1.1 Activated Partial Thromboplast Time 21.1 21.0-31.0 SECONDS Partial Thromboplastin Ratio 0.8 Sodium Level 143 136-145 mmol/L Potassium Level 4.6 3.5-5.1 mmol/L Chloride Level 110 98-107 mmol/L Carbon Dioxide Level 26 21-32 mmol/L Anion Gap 7.0 3-11 mmol/L Blood Urea Nitrogen 23 7-18 mg/dl Creatinine 1.50 0.60-1.20 mg/dl Est Creatinine Clear Calc Drug Dose 30.1 ml/min Estimated GFR () 39.6 Estimated GFR (Non- 34.2 BUN/Creatinine Ratio 15.6 10-20 Random Glucose 88 70-99 mg/dl Calcium Level 9.3 8.5-10.1 mg/dl Magnesium Level 2.1 1.8-2.4 mg/dl Total Creatine Kinase 49 26-192 U/L Creatine Kinase MB 1.2 0.5-3.6 ng/ml Creatine Kinase MB Ratio 2.4 0-3.0 Troponin I < 0.015 0-0.045 ng/ml Thyroid Stimulating Hormone (TSH) 1.690 0.300-4.500 uIu/ml Free Thyroxine 1.19 0.80-1.60 ng/dl Urine Color YELLOW Urine Appearance CLEAR CLEAR Urine pH 7.5 4.5-7.5 Urine Specific [place] 1.019 1.000-1.030 Urine Protein NEG NEG Urine Glucose (UA) NEG NEG Urine Ketones NEG NEG Urine Occult Blood NEG NEG Urine Nitrite NEG NEG Urine Bilirubin NEG NEG Urine Urobilinogen NEG NEG Urine Leukocyte Esterase NEG NEG Urine WBC (Auto) 0 0-5 /hpf Urine RBC (Auto) 0-4 0-4 /hpf Urine Hyaline Casts (Auto) 1-5 0-5 /lpf Urine Epithelial Cells (Auto) 5-10 0-5 /lpf Urine Bacteria (Auto) NEG NEG Diagnostic Radiology HEAD CT NONCONTRAST CT DOSE: 818.51 mGy.cm HISTORY: Seizure. Stroke symptoms. TECHNIQUE: Multiaxial CT images of the head were performed without the use of intravenous contrast. Automated exposure control was utilized for this study. Comparison: Head CT 12/20/2016. Findings: The paranasal sinuses and mastoid air cells are clear. The calvarium and skull base are intact. There is no mass, hematoma, midline shift, acute infarct. White matter hypodensity is nonspecific but suggestive of microvascular ischemic change. The ventricles and sulci demonstrate mild age-related involutional changes. Impression: No significant change compared to the prior study. No acute intracranial abnormality. CHEST ONE VIEW PORTABLE CLINICAL HISTORY: Stroke. COMPARISON STUDY: Chest radiograph December 21, 2016. FINDINGS: Deformity of the right fifth rib is incidentally noted. Patient is rotated. Cardiomediastinal silhouette is stable. There is no evidence of pulmonary edema. No consolidation is identified. IMPRESSION: No acute cardiopulmonary findings. No change in appearance of the chest. 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 Castillo- recommended against tPA CT head- no acute findings Remains lethargic, speech intermittently garbled/ nonsensical, confused, right sided weakness is resolved- may have been due to Todds paralysis from seizure? Rule out causes of encephalopathy- TSH wnl, CXR- no infiltrate, UA-pending, B12 , folate, LFTs, ammonia-pending History of ? seizure activity when admitted for delirium and UTI in Nov 2016, seen by [facility] neurology, EEG showed global encephalopathy, no seizure med started Check EEG Seizure precautions Check MRI brain, MRA head and neck, echo w/ bubble study Check A1c, fasting lipid pattern and chain maker in telemetry to r/o arrythmia Neuro checks NPO for now due to lethargy Rectal aspirin given in ER Start statin/ daily ASA once awake enough to take PO Consult neurology Dr. Wilson HYPOTHYROIDISM TSH wnl Resume levothyroxine once awake enough to take PO DYSLIPIDEMIA Recently taken off pravastatin 40 mg per family- unsure reason Resume statin once able to take PO HTN BP elevated to 160s Not currently on medication- was on amlodipine in the past, unclear why it was stopped Will allow permissive HTN while ruling out CVA CKD STAGE III Creat is 1.5; mildly elevated from baseline approx 1.3 Giving IVF's Monitor renal function DEMENTIA Resume Aricept once able to take PO DEPRESSION Resume Celexa and Wellbutrin once able to take PO GERD/ HX PUD W/ PERFORATED ULCER Resume CODE STATUS DNR per my discussion with and daughter at bedside DVT PROPHYLAXIS SCDs DISPOSITION Lives with Social service consult Follows with Dr. Joshi for primary care Patient seen in collaboration with Dr. Potter. Please see her addendum. Level of Care Telemetry Resuscitation Status DO NOT RESUSCITATE VTE Prophylaxis VTE Risk Assessment Done? Y/N: Yes Risk Level: Moderate Note ATTENDING ADDENDUM: 71 yo F with dementia for >1 yr and recent admission in Nov 2016 for AMS presented today after seizure-like activity at home. Per she was sitting in chair in the kitchen and waving her arms around and not talking or responding to him for several minutes. Prior to this she had been her normal self with no complaints. Daughter corroborates that story. Per ER records the patient was post-ictal when EMS arrived and there was no loss of bowel or bladder function and no evidence of tongue-biting. On arrival to the ER NS was started and she was sent for CT. She began seizing again there, noted by nursing staff to have acutely garbled speech and a rightward gaze. There was upper extremity shaking that was noted. She was brought back to the room and given Ativan and Keppra by the ER physician. A stroke alert was called at that time. Per [facility] TPA was not indicated. Focal findings of right arm and leg weakness were noted along with aleft gaze preference which resolved after a couple of hours. By the time she was in the room, she was alert and oriented to self and place but couldnt remember the date or what brought her to the hospital. Per her daughter this was a worsening of her baseline mental status, however, she had also had some Ativan. My physical exam was nonfocal, and she was cooperative with the exam including able to sit up on her own. However, my fundoscopic xam was limited as she continued to close her eyes. EOMI, 2/4 reflexes throughout, CN 2-12 intact grossly, 5/5 strength throughout. I did not walk her around as she is a fall risk with waxing/waning mental status. Etiologies of this episode include but are not limited to pseudoseizure with a worsening of her baseline dementia ( no tongue biting, no loss of postural control at home, no loss of bowl/bladder function, ?h/o shaking activity thought to be seizures but then ruled out 3 months ago when hospitalized), acute stroke, new onset seizure. Encephalitis ( specifically HSV) was considered in the setting of poss new-onset seizure, however, this was considered less likely in the absence of recent personality changes, headache, fevers, meningeal signs, and the fact that her mental status has improved since she was in the ER. Plan to obtain MRI and monitor overnight prior to deciding about the need for LP. Neuro was consulted. Cont Keppra BID as above and monitor on telemetry for further seizure activity. DO Tariq
[2017-04-22] MEDS: SODIUM CHLORIDE 0.9% 1000ML 1,000 ML IV SCH (18:30)
[2017-04-22 19:17] LABS: ALKALINE PHOSPHATASE 91 U/L (45-117); ALT/SGPT 17 U/L (12-78); AST/SGOT 13 U/L (15-37)
[2017-04-22 19:52] VITALS: BP 146/69; PULSE 70; TEMP 36.9; O2SAT 94
[2017-04-22 20:00] VITALS: O2SAT 96
[2017-04-22] MEDS ORDERED: PNEUMOCOCCAL POLYSACCHARIDES 25 MCG/0.5 ML VIAL/SYR IM. ONE (20:00)
[2017-04-22] MEDS ORDERED: PNEUMOCOCCAL ADMINISTRATION CHARGE ONE (20:00)
[2017-04-22] MEDS: LEVETIRACETAM IV 500 MG in DEXTROSE 5% 100ML 100 ML IV SCH (20:02)
[2017-04-22] MEDS: CYANOCOBALAMIN 1000 MCG/ML VIAL IM SCH (21:34)
[2017-04-22 23:42] VITALS: BP 146/71; PULSE 66; TEMP 36.7; O2SAT 96
[2017-04-22] MEDS: HEPARIN SOD 5000 UNIT/0.5 ML CARP SQ SCH (23:44)
[2017-04-23] VITALS (8 sets, daily range): BP systolic 122–158; BP diastolic 68–77; PULSE 61–71; TEMP 36.4–37; O2SAT 95–97
[2017-04-23] MEDS: SODIUM CHLORIDE 0.9% 1000ML 1,000 ML IV SCH ×3 (04:02→23:22)
[2017-04-23 05:01] LABS: ESTIMATED AVERAGE GLUCOSE 100 mg/dl; HA1C FLAG Normal (Normal)
[2017-04-23] MEDS: HEPARIN SOD 5000 UNIT/0.5 ML CARP SQ SCH ×3 (05:47→21:46)
[2017-04-23 07:23] LABS: BASO % 0.6 %; BASO ABS # 0.03 K/uL (0-0.2); COMPLETE YES; EOS % 2.3 %; HEMATOCRIT 35.9 % (37-47); LYMPH % 32.8 %; LYMPH ABS # 1.73 K/uL (1.2-3.4); MEAN CELL VOLUME 90.9 fL (80-100); MEAN CORPUSCULAR HEMOGLOBIN 29.9 pg (25-34); MEAN CORPUSCULAR HGB CONC 32.9 g/dl (32-36); MEAN PLATELET VOLUME 10.4 fL (7.4-10.4); MONO % 8.5 %; NEUT % 55.8 %; PLATELET COUNT 241 K/uL (130-400); RED BLOOD COUNT 3.95 M/uL (4.2-5.4); WHITE BLOOD COUNT 5.27 K/uL (4.8-10.8)
[2017-04-23 08:02] LABS: BUN/CREATININE RATIO 13.3 (10-20); CALCIUM 9.3 mg/dl (8.5-10.1); CREATININE 1.3 mg/dl (0.60-1.20); POTASSIUM 4.2 mmol/L (3.5-5.1)
[2017-04-23 08:06] LABS: CHOLESTEROL/HDL RATIO 3.1
[2017-04-23] MEDS ORDERED: ASPIRIN 81 MG ECTAB PO SCH (09:00)
--- NOTE | 2017-04-23 10:20 | DIAGNOSTIC IMAGING REPORT ---
MR ANGIOGRAPHY OF THE [place] OF [place] NO CONTRAST CLINICAL HISTORY: Stroke. COMPARISON STUDY: None. A 3-D [id number] MR angiographic sequence of the [place] was performed. Both the source and projection images were reviewed. The study is markedly limited from a technical standpoint secondary to motion artifact. There is an equivocal stenosis of the distal right vertebral artery. There are no lesion suspicious for aneurysm. IMPRESSION: 1. Essentially nondiagnostic study secondary to patient motion 2. Equivocal stenosis of the distal right vertebral artery Electronically signed by: William Chavez M.D. 04/23/2017 10:19 AM Dictated Date/Time: 04/23/2017 10:17 AM
--- NOTE | 2017-04-23 11:13 | DIAGNOSTIC IMAGING REPORT ---
MRI OF THE BRAIN WITHOUT CONTRAST CLINICAL HISTORY: Stroke like symptoms. Seizure like activity. COMPARISON STUDY: Head CT April 22, 2017. TECHNIQUE: Utilizing a 1.5 Olivia magnet and dedicated coil, multiplanar, multiecho imaging of the brain was performed without IV contrast. FINDINGS: This exam is moderately compromised by motion artifact. There are no areas of restricted diffusion. No acute intracranial hemorrhage, midline shift or mass effect is present. Mild atrophy is age-appropriate. Ventricular system is unremarkable. No intracranial masses identified on this unenhanced exam. Extensive white matter T2 hyperintense foci suggest small vessel disease. Calvarial signal is maintained. There is no acute intracranial hemorrhage, midline shift or mass effect. IMPRESSION: 1. No acute intracranial findings. 2. Extensive white matter T2 hyperintense foci. While nonspecific, this statistically reflect small vessel disease. 3. Study moderately compromised by motion artifact. Electronically signed by: Jaime Nagel M.D. 04/23/2017 11:11 AM Dictated Date/Time: 04/23/2017 10:53 AM
[2017-04-23] MEDS: LEVETIRACETAM IV 500 MG in DEXTROSE 5% 100ML 100 ML IV SCH ×2 (12:53→21:46)
--- NOTE | 2017-04-23 15:23 | ELECTROENCEPHALOGRAPH REPORT ---
CLINICAL DIAGNOSIS: Probable seizures. EEG DIAGNOSIS: Essentially normal during wakefulness. DESCRIPTION OF TRACING: This EEG was done as a bedside recording with simultaneous video analysis of patient movement and behavior being recorded and photic stimulation being the only stimulus parameter utilized. Drowsiness and light sleep are not seen. Initially there are a number of muscle movement artifacts, but later on in the tracing these disappear and the recording is relatively artifact-free. Photic stimulation performed early on induces a minimal driving response without a photomyogenic or photoparoxysmal component and is otherwise unremarkable. As the recording progresses, there is evidence for a background rhythm in the alpha range of up to 10 Hz of maximum frequency and 30 microvolts of maximum amplitude. This is maximum posterior head regions bilaterally symmetrical. Polymorphic mid to upper frequency theta activity of modest voltage is seen over all head regions without clear focal or regional predominance. Anterior head region maximum bilaterally symmetrical low voltage fast activity in the beta range is present. At no time during the tracing is there clear evidence for potentially epileptogenic activity in the form of polyspike or spike wave bursts, focal sharp waves or focal spikes. INTERPRETATION: This EEG is essentially normal without evidence for focal or generalized encephalopathy and without evidence for potentially epileptogenic activity but the absence of the latter does not exclude the clinical diagnosis of seizure disorder.
--- NOTE | 2017-04-23 17:01 | ECHOCARDIOGRAM REPORT ---
*NOTICE TO RECEIVING LIBERTARIAN AGENCY This information is strictly Confidential and protected under [place] law. [place] law prohibits you from making any further disclosure of this information unless further disclosure is expressly permitted by the written consent of the person to whom it pertains or is authorized by law. A general authorization for the release of medical or other information is not sufficient for this purpose. Hospital accepts no responsibility if the information is made available to any other person, INCLUDING THE PATIENT. Interpretation Summary * Name: REGINALD MAR Study Date: 04/23/2017 11:05 AM BP: 158/70 mmHg * Patient Location: .2T\S\S237\S\1 HR: 63 * : 1945 (M/d/y) Gender: Female Height: 62 in * Age: 71 yrs Ethnicity: CA Weight: 141 lb * Ordering Physician: Viola Echeverria * Referring Physician: Self, Referred * Performed By: Kiara Weiner RDCS * * Reason For Study: STROKE ALERT, POSSIBLE CVA * BSA: 1.6 m2 * -- Conclusions -- * Injection of contrast documented no interatrial shunt. * The interatrial septum is intact with no evidence for an atrial septal defect. * The left atrial size is normal. * Right atrial size is normal. * Left ventricular systolic function is normal. * Ejection Fraction = 65-70%. * The right ventricular systolic function is normal. * No significant valvular patholgy. Procedure Details * A saline contrast injection was performed to assess for cardiac shunting. * The injection was performed through an intravenous line in the right arm. * The attending nurse who injected the saline contrast was ARMOND WILLIS RN. * A total of 20 cc of agitated saline was given. Left Ventricle * The left ventricle is grossly normal size. * There is normal left ventricular wall thickness. * Ejection Fraction = 65-70%. * Left ventricular systolic function is normal. * The left ventricular wall motion is normal. Right Ventricle * The right ventricle is grossly normal size. * The right ventricular systolic function is normal. Atria * The left atrial size is normal. * Right atrial size is normal. * Injection of contrast documented no interatrial shunt. * The interatrial septum is intact with no evidence for an atrial septal defect. Mitral Valve * The mitral valve anatomy is normal. * Significant mitral regurgitation is absent. Tricuspid Valve * The tricuspid valve anatomy is normal. * Significant tricuspid regurgitation is absent. Aortic Valve * The aortic valve is not well visualized. * The aortic valve opens well. * There is no significant aortic regurgitation. Pulmonic Valve * The pulmonic valve is not well visualized. Great Vessels * The aortic root and proximal ascending aorta are normal sized. Pericardium/Pleural * There is no pericardial effusion. MMode 2D Measurements and Calculations IVSd 2.0 cm IVSs 2.3 cm LVIDd 3.8 cm LVIDs 2.4 cm LVPWd 1.4 cm LVPWs 1.8 cm IVS/LVPW 1.4 FS 35.5 % EDV(Teich) 60.8 ml ESV(Teich) 20.8 ml EF(Teich) 65.8 % EDV(cubed) 53.6 ml ESV(cubed) 14.4 ml EF(cubed) 73.2 % % IVS thick 13.7 % % LVPW thick 25.9 % LV mass(C)d 266.1 grams LV mass(C)dI 161.5 grams/m\S\2 LV mass(C)s 217.5 grams LV mass(C)sI 132.0 grams/m\S\2 CO(Teich) 2.4 l/min CI(Teich) 1.5 l/min/m\S\2 SV(Teich) 40.0 ml SI(Teich) 24.3 ml/m\S\2 CO(cubed) 2.4 l/min CI(cubed) 1.4 l/min/m\S\2 SV(cubed) 39.3 ml SI(cubed) 23.8 ml/m\S\2 Ao root diam 3.1 cm Ao root area 7.7 cm\S\2 LA dimension 3.2 cm LA/Ao 1.0 LVAd ap4 23.6 cm\S\2 LVLd ap4 7.9 cm EDV(MOD-sp4) 59.0 ml LVAs ap4 11.7 cm\S\2 LVLs ap4 6.4 cm ESV(MOD-sp4) 19.0 ml EF(MOD-sp4) 67.8 % LVAd ap2 24.6 cm\S\2 LVLd ap2 7.9 cm EDV(MOD-sp2) 66.0 ml LVAs ap2 12.1 cm\S\2 LVLs ap2 6.1 cm ESV(MOD-sp2) 21.0 ml EF(MOD-sp2) 68.2 % CO(MOD-sp4) 2.4 l/min CI(MOD-sp4) 1.5 l/min/m\S\2 SV(MOD-sp4) 40.0 ml SI(MOD-sp4) 24.3 ml/m\S\2 CO(MOD-sp2) 2.7 l/min CI(MOD-sp2) 1.6 l/min/m\S\2 SV(MOD-sp2) 45.0 ml SI(MOD-sp2) 27.3 ml/m\S\2 Doppler Measurements and Calculations MV E max augie 57.8 cm/sec MV A max augie 67.5 cm/sec MV E/A 0.86 MV dec time 0.34 sec Ao V2 max 117.9 cm/sec Ao max PG 5.6 mmHg Ao max PG (full) 0.33 mmHg LV V1 max PG 5.2 mmHg LV V1 max 114.3 cm/sec
--- NOTE | 2017-04-23 18:23 | CONSULTATION REPORT ---
DATE OF CONSULTATION: 04/23/2017 HISTORY OF PRESENT ILLNESS: Giselle is 71 years old is known to Dr. Art Joshi, has been seen by the neurology service, specifically Robe Anne on two occasions for evaluation of her mixed vascular dementia. She has also been seen by Ina Rae PA-C, Ina Smith M.D., during her hospitalization, I believe back in November of this year. She was admitted to the hospital on that occasion for delirium superimposed on dementia with urinary tract infection with some tremulous movements. A question of seizure activity was raised and an EEG showed some mild generalized encephalopathy but no seizure focus and imaging studies revealed no new structural issues. It was elected not to treat her with anticonvulsants and I believe recommendations that the Aricept, which she had been on at that time be stopped with plans perhaps to put her on some Namenda on an outpatient basis. She is now back in with a history of sudden upper extremity shaking, unresponsiveness, lasting 10-15 minutes without any incontinence or lingual or buccal lacerations. She opens her eyes. She was brought to the hospital and in the hospital on the way back from [place] apparently seizure activity, upper extremities, lasting about 30 seconds, was seen. Her speech was garbled. She had some rightward gaze. She received IV Ativan and Keppra and I was contacted by our admitting quality assurance technician service. I discussed the case, there was a question whether she had a herpes encephalitis, although she had no fever, white count or any other indications and I simply suggested that we continue the Keppra, get an MRI and see how she did. She had already been seen by a tele stroke neurology and TPA was not felt to be indicated in this setting. All this occurs in the setting of peptic ulcer disease, dementia, hypertension, hyperlipidemia, chronic smoking undoubtedly with some COPD. She also has anxiety, chronic renal disease stage III, dementia which is characterized by orientation to person during the day but then from 1:00 p.m. onwards. She has depression, dyslipidemia, GERD, hypertension, hypothyroidism. PAST SURGICAL HISTORY: Surgically, she has had a cholecystectomy, knee replacement and a thoracic laminectomy in addition to tubal ligation. FAMILY HISTORY: Positive for carcinoma and is otherwise nonrevealing. SOCIAL HISTORY: Reveals it to be a current smoker. She does not consume ethanol. She is . She lives with her and is retired. IMMUNIZATIONS: Up to date. She has no history of drug-resistant organisms. ALLERGIES: SHE HAS ALLERGIES TO CODEINE. SCHEDULED MEDICATIONS: Include Wellbutrin 1 tablet p.o. daily of the 150 XL, Celexa; she is back on Aricept 5 mg in the morning, levothyroxine and omeprazole. REVIEW OF SYSTEMS: According to the family members revealed no recent illnesses, fevers, sweats, chills, exposure to viral illnesses, headaches; new issues referable to head, eyes, ears, nose and throat; cardiovascular, pulmonary, gastrointestinal, genitourinary, or musculoskeletal systems. PHYSICAL EXAMINATION: VITAL SIGNS: On admission revealed blood pressure 161/67, pulse of 78 and regular, respirations were 18. GENERAL: She was a thin, somewhat lethargic woman who awakens to verbal stimuli and follow a few commands but was not very interactive. HEENT: Otherwise, there were no abnormalities on examination of head, eyes, ears, nose and throat. NECK: Supple. No carotid bruits were heard. LUNGS: Clear. HEART: Had a regular rhythm. ABDOMEN: Soft, nontender without organomegaly. EXTREMITIES: Free of edema. NEUROLOGIC: Today neurologically, she is awake, alert, and oriented, little digressive. She knows her daughters and can name them. She could not tell me the year, the month or the date. She knew she was in the hospital and named it [facility] which at one time it was. I do not see any cranial nerve deficits. Eye movements are normal. Speech is clear. Visual cadena are full and accommodation. Facial motility and strength is normal, facial sensation normal. Tongue protrudes in midline. Neck is supple. I do not see any tremor, tics or choreiform activity, drift or pronation sign. Reflexes are hypoactive at the ankles, normally active otherwise. Toes are downgoing. No Alicia signs are seen. Gross muscle strength testing is normal. Sensory examination is not ideally reliable, but she seems to withdraw to noxious stimulation and appears to appreciate the tuning fork in symmetrical fashion. IMAGING STUDIES: Revealed no new cerebrovascular events based on an MRI and there is of course a leukoencephalopathic pattern. An EEG again shows normal patterns without potentially epileptogenic activity but the absence of such does not exclude the diagnosis. LABORATORY DATA: Basic laboratory studies have been unremarkable. White count was not elevated. The CPK was unremarkable. Magnesium levels were normal. Urinalysis so far reveals no growth. ASSESSMENT AND PLAN: At this point, we have a woman who has dementia, likely of mixed type, who is on an agent with potential seizure threshold lowering qualities but in reasonable doses and who has had now probably 2 events that are very suspicious for seizure activity. My gut feel is to continue the Keppra, acting on the assumption that that is what occurred and observe her for another 24 hours and then consider sending her home if stable. One could consider also stopping Wellbutrin and substituting another antidepressant. At this point, neurology does not recommend any further evaluations and certainly no spinal fluid analysis is indicted in a woman who looks this well without any fever or other neurologic impairment and I think the consideration of herpes encephalitis is probably not a valid one at this time. Dr. Smith will be assuming the consult service tomorrow and will be making rounds. We will see if she has any other considerations, but for now, I would simply continue the Keppra 500 twice a day and the patient obviously is going to need to be reassessed by Kaitlin Anne and myself, about 4-6 weeks after discharge. [facility]
--- NOTE | 2017-04-23 18:23 | Progress Note ---
Internal Med Progress Note Date of Service: Apr 23, 2017. Provider Documentation: SUBJECTIVE: The patient was seen and examined Shaking episode at home following weakness No incontinence,no self injury and no LOC Has had similar episode before with negative W/U Noted to have shaking episode involving UE -resolving with activity OBJECTIVE: Vital Signs-as noted below Exam: General-No distress Eyes-normal ENT-normal Neck-supple Lungs-clear to auscultate bilaterally Heart-Regular Abdomen-Benign,no masses,bowel sound present Extremities-No edema Neuro-AAOx3 No focal sensory and or motor deficit Lab data as noted below. ASSESSMENT & PLAN: Shaking episodes Favors Benign Essential Tremors Could be secondary to SEIZURE Doubt any Stroke Received IV Ativan and IV Keppra Stroke alert done with [place] Neurologist Dr. Castillo- recommended against tPA CT head- no acute findings,MRI and MRA-unremarkable Check EEG-non diagnostic ECHO;* Injection of contrast documented no interatrial shunt. * The interatrial septum is intact with no evidence for an atrial septal defect. * The left atrial size is normal. * Right atrial size is normal. * Left ventricular systolic function is normal. * Ejection Fraction = 65-70%. * The right ventricular systolic function is normal. * No significant valvular patholgy. Seizure precautions Monitor in telemetry to r/o arrhythmia-none noted Neuro checks Vit B12was noted to be low-supplement Rectal aspirin given in ER Start statin/ daily ASA once awake enough to take PO Consult neurology Dr. Wilson -appreciate input HYPOTHYROIDISM TSH-normal; Resume levothyroxine once awake enough to take PO DYSLIPIDEMIA Recently taken off pravastatin 40 mg per family- unsure reason Resume statin once able to take PO HTN BP elevated to 160s Not currently on medication- was on amlodipine in the past, unclear why it was stopped Will allow permissive HTN while ruling out CVA Remains stable CKD STAGE III Creat is 1.5; mildly elevated from baseline approx 1.3 Giving IVF's Monitor renal function DEMENTIA Resume Aricept once able to take PO DEPRESSION Resume Celexa and Wellbutrin once able to take PO GERD/ HX PUD W/ PERFORATED ULCER Resume CODE STATUS DNR per my discussion with and daughter at bedside DVT PROPHYLAXIS SCDs DISPOSITION Lives with Social service consult Follows with Dr. Joshi for primary care Vital Signs: Date Time Temp Pulse Resp B/P (MAP) Pulse Ox O2 Delivery O2 Flow Rate FiO2 04/23/17 15:54 36.9 61 20 149/73 (98) 95 Room Air 04/23/17 13:10 37.0 64 18 145/68 (93) 96 Room Air 04/23/17 12:00 Room Air 04/23/17 08:06 37.0 63 18 158/70 (99) 97 Room Air 04/23/17 08:00 Room Air 04/23/17 04:00 Room Air 04/23/17 03:45 36.4 63 18 137/77 (97) 97 Room Air 04/23/17 00:00 Room Air 04/22/17 23:42 36.7 66 16 146/71 (96) 96 Room Air 04/22/17 20:00 96 Room Air 04/22/17 19:52 36.9 70 16 146/69 (94) 94 Lab Results: Results Past 24 Hours Test 04/22/17 18:30 04/23/17 06:45 Range/Units Ammonia < 10.0 11-32 umol/L Vitamin B12 Level 208 211-911 pg/mL Folate 8.50 >5.38 ng/mL Prolactin 6.53 ng/mL White Blood Count 5.27 4.8-10.8 K/uL Red Blood Count 3.95 4.2-5.4 M/uL Hemoglobin 11.8 12.0-16.0 g/dL Hematocrit 35.9 37-47 % Mean Corpuscular Volume 90.9 80-100 fL Mean Corpuscular Hemoglobin 29.9 25-34 pg Mean Corpuscular Hemoglobin Concent 32.9 32-36 g/dl Platelet Count 241 130-400 K/uL Mean Platelet Volume 10.4 7.4-10.4 fL Neutrophils (%) (Auto) 55.8 % Lymphocytes (%) (Auto) 32.8 % Monocytes (%) (Auto) 8.5 % Eosinophils (%) (Auto) 2.3 % Basophils (%) (Auto) 0.6 % Neutrophils # (Auto) 2.94 1.4-6.5 K/uL Lymphocytes # (Auto) 1.73 1.2-3.4 K/uL Monocytes # (Auto) 0.45 0.11-0.59 K/uL Eosinophils # (Auto) 0.12 0-0.5 K/uL Basophils # (Auto) 0.03 0-0.2 K/uL RDW Standard Deviation 45.3 36.4-46.3 fL RDW Coefficient of Variation 13.6 11.5-14.5 % Immature Granulocyte % (Auto) 0.0 % Immature Granulocyte # (Auto) 0.00 0.00-0.02 K/uL Sodium Level 145 136-145 mmol/L Potassium Level 4.2 3.5-5.1 mmol/L Chloride Level 112 98-107 mmol/L Carbon Dioxide Level 26 21-32 mmol/L Anion Gap 7.0 3-11 mmol/L Blood Urea Nitrogen 17 7-18 mg/dl Creatinine 1.30 0.60-1.20 mg/dl Est Creatinine Clear Calc Drug Dose 34.8 ml/min Estimated GFR () 47.1 Estimated GFR (Non- 40.7 BUN/Creatinine Ratio 13.3 10-20 Random Glucose 76 70-99 mg/dl Calcium Level 9.3 8.5-10.1 mg/dl Triglycerides Level 108 0-150 mg/dl Cholesterol Level 172 0-200 mg/dl HDL Cholesterol 55 mg/dl LDL Cholesterol, Calculated 95 mg/dl VLDL Cholesterol, Calculated 22 mg/dl Cholesterol/HDL Ratio 3.1
[2017-04-23] MEDS: CYANOCOBALAMIN 1000 MCG/ML VIAL IM SCH (21:46)
[2017-04-24] VITALS (7 sets, daily range): BP systolic 125–167; BP diastolic 66–79; PULSE 59–96; TEMP 36.5–37.3; O2SAT 95–99
[2017-04-24] MEDS: HEPARIN SOD 5000 UNIT/0.5 ML CARP SQ SCH ×2 (05:47→14:00)
[2017-04-24 06:52] LABS: BASO % 0.4 %; BASO ABS # 0.02 K/uL (0-0.2); COMPLETE YES; EOS % 3.7 %; HEMATOCRIT 34.7 % (37-47); IG% 0.2 %; LYMPH % 38.6 %; LYMPH ABS # 1.77 K/uL (1.2-3.4); MEAN CELL VOLUME 88.5 fL (80-100); MEAN CORPUSCULAR HEMOGLOBIN 29.3 pg (25-34); MEAN CORPUSCULAR HGB CONC 33.1 g/dl (32-36); MEAN PLATELET VOLUME 10.1 fL (7.4-10.4); MONO % 8.7 %; NEUT % 48.4 %; PLATELET COUNT 235 K/uL (130-400); RED BLOOD COUNT 3.92 M/uL (4.2-5.4); WHITE BLOOD COUNT 4.58 K/uL (4.8-10.8)
[2017-04-24 07:28] LABS: BUN/CREATININE RATIO 12.7 (10-20); CALCIUM 9.1 mg/dl (8.5-10.1); CREATININE 1.3 mg/dl (0.60-1.20); MAGNESIUM 2.1 mg/dl (1.8-2.4); POTASSIUM 3.7 mmol/L (3.5-5.1)
[2017-04-24 07:29] LABS: PHOSPHORUS 2.7 mg/dl (2.5-4.9)
[2017-04-24] MEDS: LEVETIRACETAM IV 500 MG in DEXTROSE 5% 100ML 100 ML IV SCH (08:48)
--- NOTE | 2017-04-24 12:31 | Progress Note ---
Internal Med Progress Note Date of Service: Apr 24, 2017. Provider Documentation: SUBJECTIVE: The patient was seen and examined Shaking episode at home following weakness No incontinence,no self injury and no LOC Has had similar episode before with negative W/U Noted to have shaking episode involving UE -resolving with activity No more seizure like activities Wants to go home OBJECTIVE: Vital Signs-as noted below Exam: General-No distress at rest Eyes-normal ENT-normal Neck-supple Lungs-clear to auscultate bilaterally Heart-Regular Abdomen-Benign,no masses,bowel sound present Extremities-No edema Neuro-AAOx3 No focal sensory and or motor deficit Lab data as noted below. ASSESSMENT & PLAN: Shaking episodes-Seizures Favors Benign Essential Tremors Could be secondary to SEIZURE Doubt any Stroke Received IV Ativan and IV Keppra Stroke alert done with [place] [facility]rologist Dr. Castillo- recommended against tPA CT head- no acute findings,MRI and MRA-unremarkable Check EEG-non diagnostic ECHO;* Injection of contrast documented no interatrial shunt. * The interatrial septum is intact with no evidence for an atrial septal defect. * The left atrial size is normal. * Right atrial size is normal. * Left ventricular systolic function is normal. * Ejection Fraction = 65-70%. * The right ventricular systolic function is normal. * No significant valvular patholgy. Seizure precautions Monitor in telemetry to r/o arrhythmia-none noted Neuro checks Vit B12was noted to be low-supplement Rectal aspirin given in ER Start statin/ daily ASA once awake enough to take PO Consult neurology Dr. Wilson -appreciate input Will continue Antiseizure medication Will get PT/OT and likely home this PM OP Neurology follow up HYPOTHYROIDISM TSH-normal; Resume levothyroxine once awake enough to take PO DYSLIPIDEMIA Recently taken off pravastatin 40 mg per family- unsure reason Resume statin once able to take PO HTN BP elevated to 160s Not currently on medication- was on amlodipine in the past, unclear why it was stopped Will allow permissive HTN while ruling out CVA Remains stable CKD STAGE III Creat is 1.5; mildly elevated from baseline approx 1.3 Giving IVF's Monitor renal function-stable DEMENTIA Resume Aricept once able to take PO DEPRESSION Resume Celexa and Wellbutrin once able to take PO GERD/ HX PUD W/ PERFORATED ULCER Resume CODE STATUS DNR per my discussion with and daughter at bedside DVT PROPHYLAXIS SCDs DISPOSITION Lives with Social service consult Follows with Dr. Joshi for primary care Discharge today Vital Signs: Date Time Temp Pulse Resp B/P (MAP) Pulse Ox O2 Delivery O2 Flow Rate FiO2 04/24/17 11:43 36.6 94 19 148/74 (98) 96 Room Air 04/24/17 10:45 71 99 04/24/17 08:00 Room Air 04/24/17 07:39 36.8 96 18 144/71 (95) 96 04/24/17 04:30 36.6 60 18 125/66 (85) 96 Room Air 04/24/17 04:00 Room Air 04/24/17 00:04 37.3 66 18 141/79 (99) 97 Room Air 04/24/17 00:02 Room Air 04/23/17 20:36 36.6 71 17 122/71 (88) 96 Room Air 04/23/17 20:00 96 Room Air 04/23/17 19:54 37.0 65 18 153/69 (97) 96 Room Air 04/23/17 16:00 95 Room Air 04/23/17 15:54 36.9 61 20 149/73 (98) 95 Room Air 04/23/17 13:10 37.0 64 18 145/68 (93) 96 Room Air Lab Results: Results Past 24 Hours Test 04/24/17 06:19 Range/Units White Blood Count 4.58 4.8-10.8 K/uL Red Blood Count 3.92 4.2-5.4 M/uL Hemoglobin 11.5 12.0-16.0 g/dL Hematocrit 34.7 37-47 % Mean Corpuscular Volume 88.5 80-100 fL Mean Corpuscular Hemoglobin 29.3 25-34 pg Mean Corpuscular Hemoglobin Concent 33.1 32-36 g/dl Platelet Count 235 130-400 K/uL Mean Platelet Volume 10.1 7.4-10.4 fL Neutrophils (%) (Auto) 48.4 % Lymphocytes (%) (Auto) 38.6 % Monocytes (%) (Auto) 8.7 % Eosinophils (%) (Auto) 3.7 % Basophils (%) (Auto) 0.4 % Neutrophils # (Auto) 2.21 1.4-6.5 K/uL Lymphocytes # (Auto) 1.77 1.2-3.4 K/uL Monocytes # (Auto) 0.40 0.11-0.59 K/uL Eosinophils # (Auto) 0.17 0-0.5 K/uL Basophils # (Auto) 0.02 0-0.2 K/uL RDW Standard Deviation 43.6 36.4-46.3 fL RDW Coefficient of Variation 13.4 11.5-14.5 % Immature Granulocyte % (Auto) 0.2 % Immature Granulocyte # (Auto) 0.01 0.00-0.02 K/uL Sodium Level 143 136-145 mmol/L Potassium Level 3.7 3.5-5.1 mmol/L Chloride Level 112 98-107 mmol/L Carbon Dioxide Level 22 21-32 mmol/L Anion Gap 9.0 3-11 mmol/L Blood Urea Nitrogen 16 7-18 mg/dl Creatinine 1.30 0.60-1.20 mg/dl Est Creatinine Clear Calc Drug Dose 34.9 ml/min Estimated GFR () 47.1 Estimated GFR (Non- 40.7 BUN/Creatinine Ratio 12.7 10-20 Random Glucose 75 70-99 mg/dl Calcium Level 9.1 8.5-10.1 mg/dl Phosphorus Level 2.7 2.5-4.9 mg/dl Magnesium Level 2.1 1.8-2.4 mg/dl
[2017-04-24] MEDS ORDERED: NURSING VERBAL MED ORDER ONE (16:00)
[2017-04-24] MEDS ORDERED: CYNI1000 IM (16:42)
[2017-04-24] MEDS ORDERED: LEVE500T PO (16:42)
--- NOTE | 2017-04-24 16:44 | Discharge Instructions ---
Discharge Instructions Date of Service Apr 24, 2017. Admission Reason for Admission: Rule Out Cva, Seizure-Like Activity Discharge Discharge Diagnosis / Problem: Seizure disorder Discharge Goals Goal(s): Prevent Disease Progression Activity Recommendations Activity Level: Assistance Required Therapies: Physical Therapy, Occupational Therapy . Additional Information Patient informed of condition: Yes Advance Directives: No DNR: Yes Level of Care: Skilled Communicable Disease: No Prognosis: Stable Landin Catheter: No Current Hospital Diet Patient's current hospital diet: AHA Diet (Heart Healthy) Discharge Diet Recommended Diet: AHA Diet (Heart Healthy) Pending Studies Studies pending at discharge: no Laboratory Results Hemoglobin A1c Test 04/22/17 16:11 Range/Units Estimated Average Glucose 100 mg/dl Hemoglobin A1c 5.1 4.5-5.6 % Lipid Panel Test 04/23/17 06:45 Range/Units Triglycerides Level 108 0-150 mg/dl Cholesterol Level 172 0-200 mg/dl HDL Cholesterol 55 mg/dl Cholesterol/HDL Ratio 3.1 LDL Cholesterol, Calculated 95 mg/dl Medical Emergencies . Who to Call and When: Medical Emergencies: If at any time you feel your situation is an emergency, please call 911 immediately. . Non-Emergent Contact Non-Emergency issues call your: Primary Care Provider . Past History Medical & Surgical History: (1) CKD (chronic kidney disease) stage 3, GFR 30-59 ml/min (2) Hypothyroidism (3) GERD (gastroesophageal reflux disease) (4) Depression (5) Seizure . "Provider Documentation" section prepared by Esvin Jones. . Core Measure Problem Core Measures: None Stroke Core Measures Reason no statin at D/C: Contraindicated
--- NOTE | 2017-04-24 17:45 | PROGRESS NOTE ---
DATE: 04/24/2017 HISTORY OF PRESENT ILLNESS: I am seeing Mrs. Garcia in followup. She has history of She has a history of a mixed vascular dementia. Myself and Dr. Wilson had seen her in approximately November where she was admitted with delirium and some tremulous movements with the question of seizure activity. She was at home and had a 5-minute episode with arm extension and head deviation followed by a protracted postictal event. She was amnestic until she was in the ambulance and apparently when in hospital, had a witnessed seizure the way back from CT which lasted 30 seconds. There was also some rightward gaze. She received IV Ativan and Keppra. Her MRI of the brain showed extensive white matter changes. No acute findings. Her EEG was normal. She has been started on Keppra. PHYSICAL EXAMINATION: GENERAL: She is awake and alert, mildly tearful, oriented to person and place. No right/left confusion. VITAL SIGNS: 36.5, 59, 167/78 and 95%. IMPRESSION: New onset seizure, likely related to vascular disease, continue Keppra 500 b.i.d. and follow up in our office post discharge in 2-3 weeks.
[2017-04-24] MEDS ORDERED: LEVETIRACETAM 500 MG TAB PO SCH (21:00)
--- NOTE | 2017-04-25 07:35 | Discharge Summary ---
Discharge Summary Date of Service Apr 25, 2017. Discharge Summary Admission Date: April 22, 2017 at 16:38 Discharge Date: Apr 24, 2017 Discharge Disposition: [facility] facility Principal Diagnosis: Seizure disorder Secondary Diagnoses/Problems: Please see H&P and Hospital Progress note Consultations: Neurology Medication Reconciliation New Medications: Cyanocobalamin (Cyanocobalamin) 1,000 Mcg/Ml Inj 1000 MCG IM Q24H for 3 Days, #3 Levetiractam (Levetiracetam) 500 Mg Tab 500 MG PO BID for 30 Days, #60 TAB Continued Medications: Bupropion Hcl (Wellbutrin Xl) 300 Mg Tab 1 TAB PO DAILY for 90 Days, #90 TAB 3 Refills Citalopram Hydrobromide (Citalopram Hydrobromide) 40 Mg Tab 40 MG PO DAILY Donepezil HCl (Aricept) 5 Mg Tab 5 MG PO QAM TAKE THIS MEDICATION WITH BREAKFAST Levothyroxine Sodium (Levothyroxine Sodium) 100 Mcg Tab 100 MCG PO DAILY Omeprazole (Prilosec) 20 Mg Capcr 20 MG PO BID, CAP Admission Information HPI (per Admitting provider): This is a 71 y/o female with PMH of HTN, HL, chronic smoker, hx PUD, dementia, and other problems listed below who presents to the ED for seizure like activity. states pt was at baseline until 2 pm while sitting she developed bilateral upper extremity shaking with eyes closed and patient unresponsive.. states this lasted 10-15 minutes. No incontinence or tongue biting noted. After episode patient opened eyes but was not focusing on or responding verbally. 911 was called and patient was brought to ED by ambulance. In hospital on way back from CT scan patient had seizure activity of upper extremities lasting 30 seconds witnessed by RN. Speech was garbled and developed rightward gaze. Pt received IV ativan and IV Keppra. Per ER provider after seizure activity patient was noted to have weakness in right arm and leg with gaze preference on the left and was nonverbal. Stroke alert was called with Dr. Anna Frankel [facility] neurology who decided against tPA. Daughter states at baseline patient is oriented early in the day but has sundowning from 1 pm onwards- becomes disoriented to year/ place/ situation and agitated "wants to go home" to her childhood home. Patient was not ill recently. No recent fever, chills, complaints of EDGE, facial droop, swallowing difficulty, URI symptoms, cough, SOB, complaints of chest pain, vomiting, diarrhea, urinary complaints as per family. No hx of TIA or CVA. No hx of seizure disorder per family. Had question of seizure activity on admission Nov 2016 for delirium on dementia with UTI. Had neuro evaluation by Ina Rae and Dr. Smith. EEG showed global encephalopathy. No seizure meds were started. Has followed up with neuro Kaitlin LEWIS for dementia. Past Medical/Surgical History Medical Problems: (1) Anxiety Status: Chronic (2) CKD (chronic kidney disease) stage 3, GFR 30-59 ml/min Status: Chronic (3) Dementia Status: Chronic (4) Depression Status: Chronic (5) Dyslipidemia Status: Chronic (6) GERD (gastroesophageal reflux disease) Status: Chronic (7) HTN (hypertension) Status: Chronic (8) Hypothyroidism Status: Chronic (9) PUD (peptic ulcer disease) Status: Chronic Surgical Problems: (1) S/P cholecystectomy Status: Resolved (2) S/P knee replacement Status: Resolved (3) S/p thoracic laminectomy Status: Chronic (4) S/P tubal ligation Status: Chronic Family History Cancer Social History Smoking Status: Current Every Day Smoker (1 pack per day) Alcohol Use: none Drug Use: none Marital Status: Housing status: lives with significant other Occupational Status: retired Immunizations History of Influenza Vaccine: No History of Tetanus Vaccine?: No History of Pneumococcal: Yes Pneumococcal Date: May 17, 2008 History of Hepatitis B Vaccine: No Multi-Drug Resistant Organisms History of MDRO: Yes Type of MDRO: MRSA Allergies Coded Allergies: Codeine (Verified Allergy, Unknown, 08/25/16) Home Medications Scheduled Bupropion Hcl (Wellbutrin Xl), 1 TAB PO DAILY Citalopram Hydrobromide (Citalopram Hydrobromide), 40 MG PO DAILY Donepezil HCl (Aricept), 5 MG PO QAM Levothyroxine Sodium (Levothyroxine Sodium), 100 MCG PO DAILY Omeprazole (Prilosec), 20 MG PO BID Review of Systems Not obtainable from patient due to altered mental status. Physical Exam Vital Signs Date Time Temp Pulse Resp B/P Pulse Ox O2 Delivery O2 Flow Rate FiO2 04/22/17 17:17 78 18 161/67 99 Nasal Cannula 2.0 04/22/17 16:45 84 18 166/76 98 Nasal Cannula 2.0 04/22/17 15:41 74 18 144/59 98 Nasal Cannula 2.0 04/22/17 15:00 99 Nasal Cannula 2.0 04/22/17 14:57 82 22 129/57 99 Nasal Cannula 2.0 04/22/17 14:10 36.9 75 18 142/52 100 Room Air 04/22/17 14:04 76 General Appearance: + pertinent finding (lethargic elderly female, awakens to verbal stimulation, follows some commands but not consistently, and daugther at bedside) Head: normocephalic, atraumatic Eyes: normal inspection, PERRL, + pertinent finding (unable to cooperative with EOM exam) ENT: hearing grossly normal, pharynx normal Neck: supple, trachea midline Respiratory/Chest: lungs clear, normal breath sounds, no respiratory distress Cardiovascular: regular rate, rhythm, no murmur Abdomen/GI: normal bowel sounds, non tender, soft Extremities/Musculoskelatal: no calf tenderness, no pedal edema Neurologic/Psych: alert, normal mood/affect, + pertinent finding (intermittent garbled nonsensical speech alternating with clear appropriate speech. no facial droop. moves all extremities equally on command. oriented to hospital, names daughter at bedside, unable to answer the year. unable to describe recent events. ) Skin: normal color, warm/dry Diagnostics Laboratory Results Results Past 24 Hours Test 04/22/17 14:40 04/22/17 14:41 04/22/17 14:48 04/22/17 14:52 Range/Units Bedside Prothrombin Time INR 1.1 0.9-1.1 Bedside Glucose 109 70-90 mg/dl Bedside Troponin I 0.000 0-0.045 ng/ml Bedside Hemoglobin 11.9 12.0-16.0 g/dl Bedside Hematocrit 35 37-47 % Bedside Sodium 140 135-144 mEq/L Bedside Potassium 4.3 3.3-5.0 mEq/L Bedside Chloride 106 101-112 mEq/L Bedside Total CO2 20 24-31 mEq/l Anion Gap 20.0 16-25 mmol/L Bedside Blood Urea Nitrogen 25 7-18 mg/dl Bedside Creatinine 1.6 0.6-1.3 mg/dl Bedside Glucose (other) 100 70-99 mg/dl Bedside Ionized Calcium ([place]) 1.27 1.12-1.32 mmol/l Test 04/22/17 16:11 04/22/17 16:45 04/22/17 17:31 04/22/17 17:32 Range/Units White Blood Count 7.38 4.8-10.8 K/uL Red Blood Count 4.07 4.2-5.4 M/uL Hemoglobin 12.2 12.0-16.0 g/dL Hematocrit 36.3 37-47 % Mean Corpuscular Volume 89.2 80-100 fL Mean Corpuscular Hemoglobin 30.0 25-34 pg Mean Corpuscular Hemoglobin Concent 33.6 32-36 g/dl Platelet Count 272 130-400 K/uL Mean Platelet Volume 10.0 7.4-10.4 fL Neutrophils (%) (Auto) 80.7 % Lymphocytes (%) (Auto) 11.5 % Monocytes (%) (Auto) 6.1 % Eosinophils (%) (Auto) 1.2 % Basophils (%) (Auto) 0.4 % Neutrophils # (Auto) 5.95 1.4-6.5 K/uL Lymphocytes # (Auto) 0.85 1.2-3.4 K/uL Monocytes # (Auto) 0.45 0.11-0.59 K/uL Eosinophils # (Auto) 0.09 0-0.5 K/uL Basophils # (Auto) 0.03 0-0.2 K/uL RDW Standard Deviation 44.5 36.4-46.3 fL RDW Coefficient of Variation 13.6 11.5-14.5 % Immature Granulocyte % (Auto) 0.1 % Immature Granulocyte # (Auto) 0.01 0.00-0.02 K/uL Prothrombin Time 10.5 9.0-12.0 SECONDS Prothromb Time International Ratio 1.0 0.9-1.1 Activated Partial Thromboplast Time 21.1 21.0-31.0 SECONDS Partial Thromboplastin Ratio 0.8 Sodium Level 143 136-145 mmol/L Potassium Level 4.6 3.5-5.1 mmol/L Chloride Level 110 98-107 mmol/L Carbon Dioxide Level 26 21-32 mmol/L Anion Gap 7.0 3-11 mmol/L Blood Urea Nitrogen 23 7-18 mg/dl Creatinine 1.50 0.60-1.20 mg/dl Est Creatinine Clear Calc Drug Dose 30.1 ml/min Estimated GFR () 39.6 Estimated GFR (Non- 34.2 BUN/Creatinine Ratio 15.6 10-20 Random Glucose 88 70-99 mg/dl Calcium Level 9.3 8.5-10.1 mg/dl Magnesium Level 2.1 1.8-2.4 mg/dl Total Creatine Kinase 49 26-192 U/L Creatine Kinase MB 1.2 0.5-3.6 ng/ml Creatine Kinase MB Ratio 2.4 0-3.0 Troponin I < 0.015 0-0.045 ng/ml Thyroid Stimulating Hormone (TSH) 1.690 0.300-4.500 uIu/ml Free Thyroxine 1.19 0.80-1.60 ng/dl Urine Color YELLOW Urine Appearance CLEAR CLEAR Urine pH 7.5 4.5-7.5 Urine Specific [place] 1.019 1.000-1.030 Urine Protein NEG NEG Urine Glucose (UA) NEG NEG Urine Ketones NEG NEG Urine Occult Blood NEG NEG Urine Nitrite NEG NEG Urine Bilirubin NEG NEG Urine Urobilinogen NEG NEG Urine Leukocyte Esterase NEG NEG Urine WBC (Auto) 0 0-5 /hpf Urine RBC (Auto) 0-4 0-4 /hpf Urine Hyaline Casts (Auto) 1-5 0-5 /lpf Urine Epithelial Cells (Auto) 5-10 0-5 /lpf Urine Bacteria (Auto) NEG NEG Diagnostic Radiology HEAD CT NONCONTRAST CT DOSE: 818.51 mGy.cm HISTORY: Seizure. Stroke symptoms. TECHNIQUE: Multiaxial CT images of the head were performed without the use of intravenous contrast. Automated exposure control was utilized for this study. Comparison: Head CT 12/20/2016. Findings: The paranasal sinuses and mastoid air cells are clear. The calvarium and skull base are intact. There is no mass, hematoma, midline shift, acute infarct. White matter hypodensity is nonspecific but suggestive of microvascular ischemic change. The ventricles and sulci demonstrate mild age-related involutional changes. Impression: No significant change compared to the prior study. No acute intracranial abnormality. CHEST ONE VIEW PORTABLE CLINICAL HISTORY: Stroke. COMPARISON STUDY: Chest radiograph December 21, 2016. FINDINGS: Deformity of the right fifth rib is incidentally noted. Patient is rotated. Cardiomediastinal silhouette is stable. There is no evidence of pulmonary edema. No consolidation is identified. IMPRESSION: No acute cardiopulmonary findings. No change in appearance of the chest. 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 Catsillo- recommended against tPA CT head- no acute findings Remains lethargic, speech intermittently garbled/ nonsensical, confused, right sided weakness is resolved- may have been due to [place] paralysis from seizure? Rule out causes of encephalopathy- TSH wnl, CXR- no infiltrate, UA-pending, B12 , folate, LFTs, ammonia-pending History of ? seizure activity when admitted for delirium and UTI in Nov 2016, seen by [facility] neurology, EEG showed global encephalopathy, no seizure med started Check EEG Seizure precautions Check MRI brain, MRA head and neck, echo w/ bubble study Check A1c, fasting lipid control panel builder in telemetry to r/o arrythmia Neuro checks NPO for now due to lethargy Rectal aspirin given in ER Start statin/ daily ASA once awake enough to take PO Consult neurology Dr. Wilson HYPOTHYROIDISM TSH wnl Resume levothyroxine once awake enough to take PO DYSLIPIDEMIA Recently taken off pravastatin 40 mg per family- unsure reason Resume statin once able to take PO HTN BP elevated to 160s Not currently on medication- was on amlodipine in the past, unclear why it was stopped Will allow permissive HTN while ruling out CVA CKD STAGE III Creat is 1.5; mildly elevated from baseline approx 1.3 Giving IVF's Monitor renal function DEMENTIA Resume Aricept once able to take PO DEPRESSION Resume Celexa and Wellbutrin once able to take PO GERD/ HX PUD W/ PERFORATED ULCER Resume CODE STATUS DNR per my discussion with and daughter at bedside DVT PROPHYLAXIS SCDs DISPOSITION Lives with Social service consult Follows with Dr. Joshi for primary care Patient seen in collaboration with Dr. Potter. Please see her addendum. Level of Care Telemetry Resuscitation Status DO NOT RESUSCITATE VTE Prophylaxis VTE Risk Assessment Done? Y/N: Yes Risk Level: Moderate Note ATTENDING ADDENDUM: 71 yo F with dementia for >1 yr and recent admission in Nov 2016 for AMS presented today after seizure-like activity at home. Per she was sitting in chair in the kitchen and waving her arms around and not talking or responding to him for several minutes. Prior to this she had been her normal self with no complaints. Daughter corroborates that story. Per ER records the patient was post-ictal when EMS arrived and there was no loss of bowel or bladder function and no evidence of tongue-biting. On arrival to the ER NS was started and she was sent for CT. She began seizing again there, noted by nursing staff to have acutely garbled speech and a rightward gaze. There was upper extremity shaking that was noted. She was brought back to the room and given Ativan and Keppra by the ER physician. A stroke alert was called at that time. Per [facility] TPA was not indicated. Focal findings of right arm and leg weakness were noted along with aleft gaze preference which resolved after a couple of hours. By the time she was in the room, she was alert and oriented to self and place but couldnt remember the date or what brought her to the hospital. Per her daughter this was a worsening of her baseline mental status, however, she had also had some Ativan. My physical exam was nonfocal, and she was cooperative with the exam including able to sit up on her own. However, my fundoscopic xam was limited as she continued to close her eyes. EOMI, 2/4 reflexes throughout, CN 2-12 intact grossly, 5/5 strength throughout. I did not walk her around as she is a fall risk with waxing/waning mental status. Etiologies of this episode include but are not limited to pseudoseizure with a worsening of her baseline dementia ( no tongue biting, no loss of postural control at home, no loss of bowl/bladder function, ?h/o shaking activity thought to be seizures but then ruled out 3 months ago when hospitalized), acute stroke, new onset seizure. Encephalitis ( specifically HSV) was considered in the setting of poss new-onset seizure, however, this was considered less likely in the absence of recent personality changes, headache, fevers, meningeal signs, and the fact that her mental status has improved since she was in the ER. Plan to obtain MRI and monitor overnight prior to deciding about the need for LP. Neuro was consulted. Cont Keppra BID as above and monitor on telemetry for further seizure activity. DO Tariq <Electronically signed by Viola Echeverria PA-C> <Electronically signed by Cher Potter DO> Signed: 04/22/171828 Signed: 04/22/171907 The status of this report is Signed * If report status is Draft, the document has not been finalized by the responsible provider. MNE: [facility] History and Physical Template <AttendingPhy>Esvin Jones M.D.</AttendingPhy><EDPhy>Aaron Phan M.D.</ EDPhy> <FamilyPhy>Art Joshi M.D.</FamilyPhy> <PrimaryPhy>Art Joshi M.D.</PrimaryPhy><UnitNumber>[id number]</UnitNumber><VisitNumber> [id number]</VisitNumber><PatientName>REGINALD MAR</PatientName>< DateOfBirth>1945</DateOfBirth><Age>71</Age><Location>C.2T</Location>< ServiceDate>04/22/17</ServiceDate><CC>Viola Echeverria PA-C Oesterling, Brett, M.D. Sumner, Sabrina M., DO</CC><MNE>[facility]</MNE> Addendum: 04/22/171 Addendum: Cher Potter DO on 04/22/17 @ 22:01 Addendum Section B12 was very low at 208, which may be causing/contributing to symptoms. IM replacement started daily for 7 days. Also noted temp of 37.6-discussed with nurse who said pt was comfortable and they had turned the heat up in the room. Repeat without any antipyretics was normal temp. Poss false reading. Will cont to monitor. Tariq, DO Physical Exam (per Admitting): General Appearance: + pertinent finding (lethargic elderly female, awakens to verbal stimulation, follows some commands but not consistently, and daugther at bedside) Head: normocephalic, atraumatic Eyes: normal inspection, PERRL, + pertinent finding (unable to cooperative with EOM exam) ENT: hearing grossly normal, pharynx normal Neck: supple, trachea midline Respiratory/Chest: lungs clear, normal breath sounds, no respiratory distress Cardiovascular: regular rate, rhythm, no murmur Abdomen/GI: normal bowel sounds, non tender, soft Extremities/Musculoskelatal: no calf tenderness, no pedal edema Neurologic/Psych: alert, normal mood/affect, + pertinent finding ( intermittent garbled nonsensical speech alternating with clear appropriate speech. no facial droop. moves all extremities equally on command. oriented to hospital, names daughter at bedside, unable to answer the year. unable to describe recent events. ) Skin: normal color, warm/dry Hospital Course Shaking episodes-Seizures Favors Benign Essential Tremors Could be secondary to SEIZURE Doubt any Stroke Received IV Ativan and IV Keppra Stroke alert done with [place] Neurologist Dr. Castillo- recommended against tPA CT head- no acute findings,MRI and MRA-unremarkable Check EEG-non diagnostic ECHO;* Injection of contrast documented no interatrial shunt. * The interatrial septum is intact with no evidence for an atrial septal defect. * The left atrial size is normal. * Right atrial size is normal. * Left ventricular systolic function is normal. * Ejection Fraction = 65-70%. * The right ventricular systolic function is normal. * No significant valvular patholgy. Seizure precautions Monitor in telemetry to r/o arrhythmia-none noted Neuro checks Vit B12was noted to be low-supplement Rectal aspirin given in ER Start statin/ daily ASA once awake enough to take PO Consult neurology Dr. Wilson -appreciate input Will continue Antiseizure medication Will get PT/OT and likely home this PM OP Neurology follow up HYPOTHYROIDISM TSH-normal; Resume levothyroxine once awake enough to take PO DYSLIPIDEMIA Recently taken off pravastatin 40 mg per family- unsure reason Resume statin once able to take PO HTN BP elevated to 160s Not currently on medication- was on amlodipine in the past, unclear why it was stopped Will allow permissive HTN while ruling out CVA Remains stable CKD STAGE III Creat is 1.5; mildly elevated from baseline approx 1.3 Giving IVF's Monitor renal function-stable DEMENTIA Resume Aricept once able to take PO DEPRESSION Resume Celexa and Wellbutrin once able to take PO GERD/ HX PUD W/ PERFORATED ULCER Resume CODE STATUS DNR per my discussion with and daughter at bedside DVT PROPHYLAXIS SCDs DISPOSITION Lives with Social service consult Follows with Dr. Joshi for primary care Discharge today Total time spent on discharge = 35 minutes This includes examination of the patient, discharge planning, medication reconciliation, and communication with other providers. Discharge Instructions Date of Service Apr 24, 2017. Admission Reason for Admission: Rule Out Cva, Seizure-Like Activity Discharge Discharge Diagnosis / Problem: Seizure disorder Discharge Goals Goal(s): Prevent Disease Progression Activity Recommendations Activity Level: Assistance Required Therapies: Physical Therapy, Occupational Therapy . Additional Information Patient informed of condition: Yes Advance Directives: No DNR: Yes Level of Care: Skilled Communicable Disease: No Prognosis: Stable Landin Catheter: No Current Hospital Diet Patient's current hospital diet: AHA Diet (Heart Healthy) Discharge Diet Recommended Diet: AHA Diet (Heart Healthy) Pending Studies Studies pending at discharge: no Laboratory Results Hemoglobin A1c Test 04/22/17 16:11 Range/Units Estimated Average Glucose 100 mg/dl Hemoglobin A1c 5.1 4.5-5.6 % Lipid Panel Test 04/23/17 06:45 Range/Units Triglycerides Level 108 0-150 mg/dl Cholesterol Level 172 0-200 mg/dl HDL Cholesterol 55 mg/dl Cholesterol/HDL Ratio 3.1 LDL Cholesterol, Calculated 95 mg/dl Medical Emergencies . Who to Call and When: Medical Emergencies: If at any time you feel your situation is an emergency, please call 911 immediately. . Non-Emergent Contact Non-Emergency issues call your: Primary Care Provider . Past History Medical & Surgical History: (1) CKD (chronic kidney disease) stage 3, GFR 30-59 ml/min (2) Hypothyroidism (3) GERD (gastroesophageal reflux disease) (4) Depression (5) Seizure . "Provider Documentation" section prepared by Esvin Jones. . Core Measure Problem Core Measures: None Stroke Core Measures Reason no statin at D/C: Contraindicated <Electronically signed by Esvin Jones M.D.> Signed: 04/24/17 8416 Signed: The status of this report is Signed * If report status is Draft, the document has not been finalized by the responsible provider. Addendum: 04/24/17 7109 Addendum: Esvin Jones M.D. on 04/24/17 @ 16:45 Discharge Inst - Addendum Addendum Notes: Appointment with Dr Joshi on 04/28/17 at 1PM.Please make an appointment with Dr Mobley in 2 weeks Addendum Provider: Addendum Notes were documented by provider Esvin Jones. Signed: 04/24/17 0263 Additional Copies To Art Jsohi M.D.
== END 2017-04-24 17:33 | DRG 101 ==
LOC: ENRESERVTM → ENRESERVDT → EDSEX 13:56 → EDBD 13:56 → C.EDA 13:58 → C.2T 16:38 → EDBEDREQ 17:03
PROVIDERS: ADMIT Hospitalist; ATTEND Internal Medicine
DX: G40.909 Epilepsy, unspecified, not intractable, without status epilepticus (principal); E03.9 Hypothyroidism, unspecified; E78.5 Hyperlipidemia, unspecified; I12.9 Hypertensive chronic kidney disease with stage 1 through stage 4 chronic kidney disease, or unspecified chronic kidney disease; N18.3 Chronic kidney disease, stage 3 (moderate); F17.210 Nicotine dependence, cigarettes, uncomplicated; Z87.09 Personal history of other diseases of the respiratory system; F32.9 Major depressive disorder, single episode, unspecified; J44.9 Chronic obstructive pulmonary disease, unspecified; K21.9 Gastro-esophageal reflux disease without esophagitis; F01.50 Vascular dementia, unspecified severity, without behavioral disturbance, psychotic disturbance, mood disturbance, and anxiety; F41.9 Anxiety disorder, unspecified; Z90.49 Acquired absence of other specified parts of digestive tract; Z80.9 Family history of malignant neoplasm, unspecified; Z66 Do not resuscitate; Z88.5 Allergy status to narcotic agent; Z87.440 Personal history of urinary (tract) infections; Z79.899 Other long term (current) drug therapy; Z98.51 Tubal ligation status; Z96.659 Presence of unspecified artificial knee joint; Z86.14 Personal history of Methicillin resistant Staphylococcus aureus infection

== ENCOUNTER 2018-04-06 09:12 | Emergency (ER) | payer OTHER ==
[~2018-04-06] VITALS: Ht 160 cm; Wt 45.9 kg
[~2018-04-06 09:12] MED LIST changes: -ACET-1256 PO; +BUPRTAB51 PO; +CYNI1000 IM; -DOCU100C31 PO; +LEVE500T PO; -RANI150T3 PO; -WLLXL300 PO
[2018-04-06 09:19] VITALS: TEMP 36.5; Ht 160 cm; Wt 45.9 kg
[2018-04-06] MEDS ORDERED: OXYCODONE HCL IR 5 MG TAB (IMMEDIATE RELEASE) PO STA (09:26)
--- NOTE | 2018-04-06 09:49 | DIAGNOSTIC IMAGING REPORT ---
RIGHT WRIST 5 VIEWS CLINICAL HISTORY: Fall with right wrist pain. FINDINGS: 5 views of the right wrist are obtained. No prior studies are available for comparison at the time of dictation. The skeletal structures are osteopenic. Suspect a subtle impacted fracture of the distal radial metaphysis with intra-articular extension. Overlying soft tissue edema is noted. No additional fracture is clearly identified. Mild narrowing is seen at the radiocarpal articulation. The triangular fibrocartilage is densely calcified. Advanced osteoarthritic change is seen at the first carpometacarpal articulation. There is bony sclerosis, overgrowth, and subluxation. Moderate osteoarthritic change is seen at the second carpometacarpal joint, as well as involving the metacarpophalangeal joints. IMPRESSION: 1. Suspect a subtle impacted fracture of the distal radial metaphysis with intra-articular extension and overlying soft tissue edema. 2. Osteopenia and arthritic change as above. Electronically signed by: Aaron Bradley M.D. 04/06/2018 9:48 AM Dictated Date/Time: 04/06/2018 9:44 AM
--- NOTE | 2018-04-06 09:50 | EMERGENCY ROOM VISIT NOTE ---
ED Visit Note First contact with patient: 09:19 I have seen and examined this patient with Prosper Batres and generally agree with the treatment plan as discussed. Problem List Medical Problems: (1) Anxiety Status: Chronic (2) CKD (chronic kidney disease) stage 3, GFR 30-59 ml/min Status: Chronic (3) Dementia Status: Chronic (4) Depression Status: Chronic (5) Dyslipidemia Status: Chronic (6) GERD (gastroesophageal reflux disease) Status: Chronic (7) HTN (hypertension) Status: Chronic (8) Hypothyroidism Status: Chronic (9) PUD (peptic ulcer disease) Status: Chronic Surgical Problems: (1) S/P cholecystectomy Status: Resolved (2) S/P knee replacement Status: Resolved (3) S/p thoracic laminectomy Status: Chronic (4) S/P tubal ligation Status: Chronic Current/Historical Medications Scheduled Bupropion Hcl (Wellbutrin Xl), 1 TAB PO DAILY Citalopram Hydrobromide (Citalopram Hydrobromide), 40 MG PO DAILY Cyanocobalamin (Cyanocobalamin), 1,000 MCG IM Q24H Donepezil HCl (Aricept), 5 MG PO QAM Levetiractam (Levetiracetam), 500 MG PO BID Levothyroxine Sodium (Levothyroxine Sodium), 100 MCG PO DAILY Omeprazole (Prilosec), 20 MG PO BID Allergies Coded Allergies: Codeine (Verified Allergy, Unknown, 08/25/16) Vital Signs Date Time Temp Pulse Resp B/P (MAP) Pulse Ox O2 Delivery O2 Flow Rate FiO2 04/06/18 09:19 36.5 70 142/67 95 Room Air Medications Administered Medications (Trade) Dose Ordered Sig/Aminata Route Start Time Stop Time Status Last Admin Dose Admin Oxycodone HCl (Roxicodone Immediate Rel Tab) 5 mg NOW STAT PO 04/06/18 09:26 04/06/18 09:28 DC 04/06/18 09:32 5 MG Departure Information Referrals Art Joshi M.D. (PCP) Patient Instructions My [facility]
[2018-04-06] MEDS ORDERED: OXYC1TAB3 PO (09:58)
[2018-04-06] MEDS ORDERED: NRV/5 PO (10:06)
[2018-04-06] MEDS ORDERED: PRLSR20 PO (10:06)
[2018-04-06] MEDS ORDERED: TRL150 PO (10:06)
[2018-04-06] MEDS ORDERED: PRAV40TA2 PO (10:06)
[2018-04-06] MEDS ORDERED: CYNI1000 IM (10:07)
[2018-04-06 10:16] VITALS: BP 143/60; PULSE 67; O2SAT 98
--- NOTE | 2018-04-06 12:55 | EMERGENCY ROOM VISIT NOTE ---
History First contact with patient: 09:19 Chief Complaint: WRIST PAIN Stated Complaint: RIGHT WRIST PAIN History of Present Illness The patient is a 72 year old female who presents to the Emergency Room with complaints of an injury to the right wrist after she fell last night while trying to get into a vehicle. The patient reports persistent swelling and pain , rating her discomfort a 9 out of 10. She denies any pain extending into the elbow or shoulder region. The patient denies any paresthesias or numbness of the right hand or fingers. She denies head injury, neck pain or back pain. The patient is right-hand dominant. Review of Systems 10 system review was performed and was negative except for pertinent positives and negatives as indicated in history of present illness Past Medical/Surgical History Medical Problems: (1) Ambulatory dysfunction (2) Anxiety (3) Change in mental state (4) CKD (chronic kidney disease) stage 3, GFR 30-59 ml/min (5) Dementia (6) Depression (7) Dyslipidemia (8) GERD (gastroesophageal reflux disease) (9) HTN (hypertension) (10) Hypothyroidism (11) PUD (peptic ulcer disease) (12) rule out CVA (13) Seizure (14) Seizure-like activity (15) sepsis (16) Wound infection Surgical Problems: (1) S/P cholecystectomy (2) S/P knee replacement (3) S/p thoracic laminectomy (4) S/P tubal ligation Family History Cancer Social History Smoking Status: Current Every Day Smoker Alcohol Use: none Drug Use: none Marital Status: Housing Status: lives with family Occupation Status: retired Current/Historical Medications Scheduled Amlodipine Besylate (Amlodipine Besylate), 5 MG PO DAILY Bupropion Hcl (Wellbutrin Xl), 1 TAB PO DAILY Cyanocobalamin (Cyanocobalamin), 1,000 MCG IM DAILY Donepezil HCl (Aricept), 5 MG PO QAM Levetiractam (Levetiracetam), 500 MG PO BID Levothyroxine Sodium (Levothyroxine Sodium), 100 MCG PO DAILY Omeprazole (Prilosec), 20 MG PO BID Oxcarbazepine (Oxcarbazepine), 150 MG PO BID Pravastatin Sodium (Pravastatin Sodium), 40 MG PO DAILY Scheduled PRN Oxycodone Ir (Roxicodone Ir), 1 TAB PO Q4H PRN for Pain Physical Exam Vital Signs Date Time Temp Pulse Resp B/P (MAP) Pulse Ox O2 Delivery O2 Flow Rate FiO2 04/06/18 10:16 67 18 143/60 98 04/06/18 09:19 36.5 70 142/67 95 Room Air Physical Exam CONSTITUTIONAL: Healthy and well nourished. Alert and oriented X 3 with positive affect. Patient appears in moderate discomfort from pain. HEENT: Normocephalic, atraumatic. Pupils equal, round and reactive. NECK: Full active range of motion without discomfort. MUSCULOSKELETAL: Examination of the right wrist shows overriding edema and erythema. The patient is tender throughout the entire wrist region. Capillary refill of the fingers is less than 2 seconds. The patient has no tenderness to palpation about the elbow or shoulder. No tenderness to palpation through the back or ribs. INTEGUMENTARY: No rash or other significant dermatologic conditions noted. NEUROLOGIC: Right hand and fingers are sensory intact. Medical Decision & Procedures ER Provider Diagnostic Interpretation: My interpretation of right wrist x-rays shows an impacted distal radius fracture with intra-articular extension to the radiocarpal joint. No angulation or significant displacement noted. Radiologist report is as follows: RIGHT WRIST 5 VIEWS CLINICAL HISTORY: Fall with right wrist pain. FINDINGS: 5 views of the right wrist are obtained. No prior studies are available for comparison at the time of dictation. The skeletal structures are osteopenic. Suspect a subtle impacted fracture of the distal radial metaphysis with intra-articular extension. Overlying soft tissue edema is noted. No additional fracture is clearly identified. Mild narrowing is seen at the radiocarpal articulation. The triangular fibrocartilage is densely calcified. Advanced osteoarthritic change is seen at the first carpometacarpal articulation. There is bony sclerosis, overgrowth, and subluxation. Moderate osteoarthritic change is seen at the second carpometacarpal joint, as well as involving the metacarpophalangeal joints. IMPRESSION: 1. Suspect a subtle impacted fracture of the distal radial metaphysis with intra-articular extension and overlying soft tissue edema. 2. Osteopenia and arthritic change as above. Medications Administered Medications (Trade) Dose Ordered Sig/Aminata Route Start Time Stop Time Status Last Admin Dose Admin Oxycodone HCl (Roxicodone Immediate Rel Tab) 5 mg NOW STAT PO 04/06/18 09:26 04/06/18 09:28 DC 04/06/18 09:32 5 MG ED Course Patient history and physical exam were performed. Nurse's notes were reviewed. The patient was administered OxyIR 5 mg for pain. An ice pack was applied. X -rays of the right wrist shows a distal radius fracture that is impacted and intra-articular. A volar Ortho-Glass splint was applied. Neurovascular check after splint placement was normal. The patient was encouraged to intermittently apply ice and elevate the wrist for swelling and pain. Ibuprofen and Tylenol as needed for additional pain relief. The patient did request a small prescription for OxyIR as needed for additional pain relief. This was sent to her pharmacy. The patient was instructed to follow-up with [facility] for further reevaluation and management. The patient was happy with plan of care, voiced understanding of all discharge instructions , and rated her discomfort a 2 out of 10 at the conclusion of my exam. The patient was also seen and examined by Dr. Watts, ED attending physician, who agrees with workup and plan of care. Medical Decision Medication Reconcilliation Current Medication List: was personally reviewed by me Blood Pressure Screening Patient's blood pressure: Normal blood pressure Impression Primary Impression: Fracture of right distal radius Additional Impression: Fall Departure Information Prescriptions Oxycodone Ir (Roxicodone Ir) 5 Mg Tab 1 TAB PO Q4H Y for Pain, #15 TAB For Initial Treatment Prov: Prosper Batres PA 04/06/18 Referrals Art Joshi M.D. (PCP) Patient Instructions My [facility] Problem Qualifiers Primary Impression: Fracture of right distal radius Encounter type: initial encounter Fracture type: closed Fracture morphology : other intra-articular Qualified Codes: S52.571A - Other intraarticular fracture of lower end of right radius, initial encounter for closed fracture Additional Impression: Fall Encounter type: initial encounter Qualified Codes: W19.XXXA - Unspecified fall, initial encounter
== END 2018-04-06 10:17 | disposition home or self-care (01) ==
LOC: C.EDB 09:16
DX: S52.571A Other intraarticular fracture of lower end of right radius, initial encounter for closed fracture (principal); W17.89XA Other fall from one level to another, initial encounter; F41.9 Anxiety disorder, unspecified; N18.3 Chronic kidney disease, stage 3 (moderate); I12.9 Hypertensive chronic kidney disease with stage 1 through stage 4 chronic kidney disease, or unspecified chronic kidney disease; F32.9 Major depressive disorder, single episode, unspecified; F03.90 Unspecified dementia, unspecified severity, without behavioral disturbance, psychotic disturbance, mood disturbance, and anxiety; E78.5 Hyperlipidemia, unspecified; K21.9 Gastro-esophageal reflux disease without esophagitis; E03.9 Hypothyroidism, unspecified; K27.9 Peptic ulcer, site unspecified, unspecified as acute or chronic, without hemorrhage or perforation; Z90.49 Acquired absence of other specified parts of digestive tract; Z96.659 Presence of unspecified artificial knee joint; Z98.51 Tubal ligation status; F17.210 Nicotine dependence, cigarettes, uncomplicated; Z80.9 Family history of malignant neoplasm, unspecified; Z79.899 Other long term (current) drug therapy

== ENCOUNTER 2019-03-18 17:29 | Inpatient (IN) ==
[~2019-03-18 17:29] MED LIST changes: -BUPRTAB51 PO; -CITA40TA4 PO; -CYNI1000 IM; -DONE5TAB9 PO; +HydrALAZINE HCL 20 MG/ML VIAL IV ONE; -LEVE500T PO; -LEVO100T7 PO; -OMEP20CA59 PO
[2019-03-18 18:34] LABS: Basophils # (auto) 0.04 K/uL (0-0.2); Basophils % (auto) 0.8 %; Hematocrit (blood only) 32.2 % (37-47); Hemoglobin 11.1 g/dL (12.0-16.0); Immature Granulocytes # (auto) 0.01 K/uL (0.00-0.02); Immature Granulocytes % (auto) 0.2 %; Lymphocytes # (auto) 1.03 K/uL (1.2-3.4); Lymphocytes % (auto) 20.2 %; Mean Corpuscular Hgb Conc 34.5 g/dL (32-36); Mean Corpuscular Volume 90.2 fL (80-100); Mean Platelet Volume 9.7 fL (7.4-10.4); Monocytes # (auto) 0.43 K/uL (0.11-0.59); Monocytes % (auto) 8.4 %; Neutrophils # (auto) 3.49 K/uL (1.4-6.5); Neutrophils % (auto) 68.4 %; Platelet Count 259 K/uL (130-400); RDW Coefficient of Variation 13.5 % (11.5-14.5); Red Blood Count 3.57 M/uL (4.2-5.4)
[2019-03-18 18:43] LABS: Alanine Aminotransferase 13 U/L (12-78); Albumin Level 3.4 gm/dl (3.4-5.0); Aspartate Aminotransferase 8 U/L (15-37); BUN Creatinine Ratio 19.1 (10-20); Blood Urea Nitrogen 18 mg/dl (7-18); Calcium 9.4 mg/dl (8.5-10.1); Carbon Dioxide 26 mmol/L (21-32); Chloride 103 mmol/L (98-107); Creatinine Clr Calc Pharmacy 41.3 ml/min; Est GFR (African American) 69.7; Est GFR (Non-African American) 60.1; Glucose 92 mg/dl (70-99); Magnesium 1.8 mg/dl (1.8-2.4); Potassium 3.8 mmol/L (3.5-5.1); Sodium 134 mmol/L (136-145)
--- NOTE | 2019-03-18 18:45 | XRay Report ---
XR chest 1V portable HISTORY: 73 years-old Female Chest Pain acute atypical chest pain COMPARISON: Chest radiograph 11/08/2018 TECHNIQUE: Portable AP view of the chest FINDINGS: Patient is rotated to the left and also side bent to the right. Calcification the thoracic aortic arc h. No pneumothorax, pleural effusion, focal airspace consolidation or overt pulmonary edema. Scattere d catheter. Lungs are redemonstrated. Areas of mild chronic interstitial coarsening are unchanged. De generative changes of the shoulders and spine. Healed remote right-sided rib fractures. IMPRESSION: No acute process. The above report was generated using voice recognition software. It may contain grammatical, syntax o r spelling errors. Electronically signed by: Devon Heart M.D. 03/18/2019 6:43 PM
[2019-03-18 18:48] LABS: Albumin Globulin Ratio 1.1 (0.9-2); Alkaline Phosphatase 133 U/L (45-117); Bilirubin,Total 0.3 mg/dl (0.2-1); Phosphorus 3.1 mg/dl (2.5-4.9); Total Protein 6.4 gm/dl (6.4-8.2); Troponin I < 0.015 ng/ml (0-0.045)
--- NOTE | 2019-03-18 19:10 | CT Scan Report ---
CT head/brain wo con CLINICAL HISTORY: 73 years-old Female with seizure. Acute seizure TECHNIQUE: Multiple axial CT images of the head were obtained without contrast. A dose lowering tech nique was utilized adhering to the principles of ALARA. CT DOSE: 537.48 mGy.cm COMPARISON: Head CT 10/20/2018. FINDINGS: No acute intracranial hemorrhage, midline shift, intracranial mass, hydrocephalus, territorial ischem ia or abnormal extra-axial collection. Age-related involutional changes with ex vacuo ventriculomegal y. The study is limited secondary to patient positioning. Patchy white matter hypodensities redemonst rated suggestive of chronic microvascular ischemic disease. Cerebral vascular calcifications also not ed. The calvarium is intact. The paranasal sinuses, mastoid air cells, and middle ear cavities are clear . IMPRESSION: No acute intracranial abnormality. The above report was generated using voice recognition software. It may contain grammatical, syntax o r spelling errors. Electronically signed by: Devon Heart M.D. 03/18/2019 7:09 PM
--- NOTE | 2019-03-18 22:07 | History & Physical Report ---
Date of Service March 18, 2019 Assessment & Plan (1) Seizure: Please refer to Dr. Nguyễn's addendum for assessment plan. History of Present Illness Chief Complaint: Seizure Primary Care Provider: Atr Joshi MD 73-year-old female who presents to the ED after experiencing a seizure at home. History is currently unobtainable from the patient. History was obtained from patient's via the telephone. He reports that this evening, patient had a seizure in which she was shaking all over. He reports this lasted for about 10 to 15 minutes and then 30 minutes later, she developed another seizure. EMS was called and patient was brought to the ER for further evaluation. did not note any tongue biting, vomiting, loss of bowel or bladder control. He reports the patient has been compliant with her medications and there have been no medication changes recently. Reports she has been doing well recently, no recent illnesses, fevers, chills. In route to the hospital, patient had another seizure and received IV Ativan which broke the seizure. In the ER, patient is hemodynamically stable. Labs are unremarkable, head CT is negative for acute findings. Allergies Allergy/AdvReac Type Severity Reaction Status Date / Time codeine Allergy Unknown Verified 03/18/19 19:42 Home Medications Home Medications Medication Instructions Recorded Confirmed Type acetaminophen 1,000 mg PO DIRECTED PRN 08/10/18 03/18/19 History amlodipine 5 mg PO DAILY 08/10/18 03/18/19 History levothyroxine 100 mcg PO DAILY 08/10/18 03/18/19 History omeprazole 20 mg PO BID 08/10/18 03/18/19 History oxcarbazepine 300 mg PO DAILY 08/10/18 03/18/19 History ranitidine HCl 150 mg PO BID 08/10/18 03/18/19 History cyanocobalamin (vitamin B-12) 1,000 mcg PO DAILY 11/08/18 03/18/19 History bupropion HCl 300 mg PO DAILY 03/18/19 03/18/19 History citalopram 20 mg PO DAILY 03/18/19 03/18/19 History oxcarbazepine 450 mg PO HS 03/18/19 03/18/19 History Past Med/Surg History Medical History Perforated gastric ulcer (Chronic) Status post repair Depression (Chronic) Seizure disorder (Chronic) Osteoarthritis (Chronic) CKD (chronic kidney disease), stage III (Chronic) GERD (gastroesophageal reflux disease) (Chronic) Dementia (Chronic) Dyslipidemia (Chronic) Hypothyroidism (Chronic) Weight loss (Chronic) Closed hip fracture (Chronic) Anxiety CKD (chronic kidney disease) stage 3, GFR 30-59 ml/min Dementia Depression Dyslipidemia GERD (gastroesophageal reflux disease) HTN (hypertension) History of peptic ulcer perforated prepyloric ulcer March 2016; required exploratory lap- abdominal washout + Jon patch repair Hypothyroidism MRSA (methicillin resistant Staphylococcus aureus) carrier nasal MRSA screen + 2015, negative 08/10/18 Seizure disorder Tobacco abuse Surgical History History of total bilateral knee replacement (Chronic) H/O exploratory laparotomy 2015 secondary to perforated gastric ulcer History of colonoscopy with polypectomy History of esophagogastroduodenoscopy (EGD) History of laminectomy thoracic S/P cholecystectomy S/P knee replacement S/P tubal ligation Family History Father COPD (chronic obstructive pulmonary disease) Mother Coronary heart disease Grandmother (Maternal) Pancreatic cancer Other Paternal family history of emphysema Social History Preferred Language: Kittitian Communication Ability: Impaired Communication Ability Comment: dementia Utilization Review Coordinator Required: No Beliefs That Will Affect Care: None marital status: Current Living Situation: Spouse Other Information That Helps Us Care for You: No Feels Safe at Home: Yes Safety Concerns: Feels Safe At This Time Smoking Status: Unknown if ever smoked Hx Alcohol Use: No Hx Substance Use: No Review of Systems Review of Systems: Unobtainable due to cognitive status Physical Exam Constitutional: WD/WN, vitals as above no acute distress Eyes: PERRL, conjunctivae normal, anicteric sclerae ENMT: Ears: no external ear abnormality Nose: no external nose abnormality Mouth: + edentulous Respiratory: normal respiratory effort, lungs clear to auscultation Cardiovascular: Rate/Rhythm: regular rate and regular rhythm Vessels: normal peripheral pulses Extremities: no edema Gastrointestinal (Abdomen): normal bowel sounds, soft, nontender, no hepatosplenomegaly Musculoskeletal: no cyanosis or clubbing, extremities motor strength 5/5 Skin: no rashes, warm and dry Neurologic: Patient arouses to verbal stimuli however does not open eyes or follow commands Psychiatric: Orientation: + not alert and + not oriented x 3 Results & Data Vital Signs (Past 12 Hours) Vital Signs Temp Pulse Resp BP Pulse Ox 03/18/19 20:30 72 14 165/74 H 96 03/18/19 20:00 72 14 149/71 H 03/18/19 19:30 71 13 152/72 H 03/18/19 18:30 73 18 157/74 H 95 03/18/19 18:17 74 94 03/18/19 18:00 75 14 146/72 H 93 03/18/19 17:46 93 03/18/19 17:42 36.9 C 78 13 174/76 H 95 03/18/19 17:39 76 16 93 03/18/19 17:34 76 14 174/76 H 93 Laboratory Results Laboratory Last Values WBC 5.10 K/uL (4.8-10.8) 03/18/19 17:39 RBC 3.57 M/uL (4.2-5.4) L 03/18/19 17:39 Hgb 11.1 g/dL (12.0-16.0) L 03/18/19 17:39 Hct 32.2 % (37-47) L 03/18/19 17:39 MCV 90.2 fL (80-100) 03/18/19 17:39 MCH 31.1 pg (25-34) 03/18/19 17:39 MCHC 34.5 g/dL (32-36) 03/18/19 17:39 RDW Std Deviation 45.0 fL (36.4-46.3) 03/18/19 17:39 RDW Coeff of Hollie 13.5 % (11.5-14.5) 03/18/19 17:39 Plt Count 259 K/uL (130-400) 03/18/19 17:39 MPV 9.7 fL (7.4-10.4) 03/18/19 17:39 Immature Gran % (Auto) 0.2 % 03/18/19 17:39 Neut % (Auto) 68.4 % 03/18/19 17:39 Lymph % (Auto) 20.2 % 03/18/19 17:39 [place] % (Auto) 8.4 % 03/18/19 17:39 Eos % (Auto) 2.0 % 03/18/19 17:39 Baso % (Auto) 0.8 % 03/18/19 17:39 Immature Gran # (Auto) 0.01 K/uL (0.00-0.02) 03/18/19 17:39 Neut # (Auto) 3.49 K/uL (1.4-6.5) 03/18/19 17:39 Lymph # (Auto) 1.03 K/uL (1.2-3.4) L 03/18/19 17:39 [place] # (Auto) 0.43 K/uL (0.11-0.59) 03/18/19 17:39 Eos # (Auto) 0.10 K/uL (0-0.5) 03/18/19 17:39 Baso # (Auto) 0.04 K/uL (0-0.2) 03/18/19 17:39 Sodium 134 mmol/L (136-145) L 03/18/19 17:39 Potassium 3.8 mmol/L (3.5-5.1) 03/18/19 17:39 Chloride 103 mmol/L (98-107) 03/18/19 17:39 Carbon Dioxide 26 mmol/L (21-32) 03/18/19 17:39 Anion Gap 5.0 (3-11) 03/18/19 17:39 BUN 18 mg/dl (7-18) 03/18/19 17:39 Creatinine 0.93 mg/dl (0.6-1.2) 03/18/19 17:39 Est Cr Clr Drug Dosing 41.3 ml/min 03/18/19 17:39 Est GFR ( Amer) 69.7 03/18/19 17:39 Est GFR (Non-Af Amer) 60.1 03/18/19 17:39 BUN/Creatinine Ratio 19.1 (10-20) 03/18/19 17:39 Glucose 92 mg/dl (70-99) 03/18/19 17:39 Calcium 9.4 mg/dl (8.5-10.1) 03/18/19 17:39 Phosphorus 3.1 mg/dl (2.5-4.9) 03/18/19 17:39 Magnesium 1.8 mg/dl (1.8-2.4) 03/18/19 17:39 Total Bilirubin 0.3 mg/dl (0.2-1) 03/18/19 17:39 AST 8 U/L (15-37) L 03/18/19 17:39 ALT 13 U/L (12-78) 03/18/19 17:39 Alkaline Phosphatase 133 U/L (45-117) H 03/18/19 17:39 Troponin I < 0.015 ng/ml (0-0.045) 03/18/19 17:39 Total Protein 6.4 gm/dl (6.4-8.2) 03/18/19 17:39 Albumin 3.4 gm/dl (3.4-5.0) 03/18/19 17:39 Globulin 3.0 gm/dl (2.5-4.0) 03/18/19 17:39 Albumin/Globulin Ratio 1.1 (0.9-2) 03/18/19 17:39 Lipase 77 U/L (73-393) 03/18/19 17:39 TSH 0.456 uIu/ml (0.300-4.500) 03/18/19 17:39 Diagnostic Findings CXR IMPRESSION: No acute process. HEAD CT IMPRESSION: No acute intracranial abnormality. Code Status & VTE Plan VTE Prophylaxis Plan VTE Prophylaxis will be ordered: Yes Supervising Physician Co-Signing Physician Notes IM ATTENDING : Patient seen and examined. History obtained from records. Unable to obtain history secondary to demented state. Contact persons per family currently unreachable by phone at time of dictation. Preceding documentation by JOSHUA Arias reviewed. In addition, witnessed patient seizures by family "looks more like shivering" as per SPA COORDINATOR account. FINAL ASSESSMENT AND PLAN as follows : Encephalopathy Possible complicated UTI No overt sepsis ? Breakthrough seizure (home Bupropion potentially lowering seizure threshold) (SPA COORDINATOR describes witnessed seizure-like activity in the ER as more of shivering.) Hypertension, elevated. Dementia as per records. Hypothyroidism, euthyroid as of today's TSH Chronic anemia, hemoglobin at baseline Medical telemetry for elevated BP Continue home Norvasc once patient more awake to swallow medication. May need PRN parenteral hypertensive. Urine cultures, IV Ceftriaxone Continue home Trileptal AED dose, Ativan as needed, Seizure precautions Hold home Bupropion for now given medication potential to lower seizure threshold. May need Neurology eval if domi seizure witnessed in the hospital Reattempt to contact patient's family in a.m. to gather details of witnessed "seizure" event at home DVT prophylaxis . Lovenox subcu DNR as per patient's previous wishes as per family's discussion with ER provider.
[2019-03-18 22:28] LABS: Appearance Urine Cloudy (Clear); Bacteria Urine Automated 2+ (Negative); Bilirubin Urine Negative (Negative); Blood Urine Negative (Negative); Color Urine Yellow; Glucose Urine UA Negative (Negative); Ketones Urine Negative (Negative); Leukocyte Esterase Urine 1+ (Negative); Nitrite Urine Negative (Negative); Protein Urine Negative (Negative); RBC Urine Automated 0-4 /hpf (0-4); Specific Gravity Urine 1.017 (1.000-1.030); Urobilinogen Urine Negative (Negative)
[2019-03-18] MEDS ORDERED: cefTRIAXone SODIUM 1,000 MG/50 ML BAG IV STA (22:52)
[2019-03-18] MEDS ORDERED: ACETAMINOPHEN 325 MG TAB PO PRN (22:52)
[2019-03-18] MEDS ORDERED: OXYCODONE HCL IR 5 MG TAB (IMMEDIATE RELEASE) PO PRN (22:52)
[2019-03-18] MEDS ORDERED: LORazepam 1 MG/2 ML VIAL IV PRN (22:52)
[2019-03-18] MEDS ORDERED: HydrALAZINE HCL 20 MG/ML VIAL ONE (23:19)
[2019-03-18] MEDS ORDERED: cefTRIAXone SODIUM 1000MG/50ML D5W ONE (23:19)
--- NOTE | 2019-03-19 00:28 | Emergency Department Note ---
Entered by Rafaela Aburto acting as a scribe for Brandon Duran MD History of Present Illness General Chief complaint: Seizure Stated complaint: SEIZURES Time Seen by Provider: 03/18/19 18:14 Source: patient and family Mode of arrival: EMS Limitations: altered mental status History of Present Illness Onset (ago): hour(s) 2 Location: head Radiation: non-radiation Pain Consistency: + now resolved Relieved By: + none Exacerbated By: + none Associated symptoms: + other (-diarrhea); no cough and no nausea/vomiting Treatments prior to arrival: none The patient is a 73 year old female who presents to the ED with complaints of a seizure. She was brought to the ED via EMS and is accompanied by family. She is on daily seizure medication as she has a seizure history. Her family states she had 2 seizures at home and 1 while en route to the ED. Her family reports during the episodes, the patient "shakes all over, her eyes go to the back of her head and her mouth is wide open". The episodes last for a few seconds. Her family does not think she received medication right after the seizures today. Family denies any recent fevers, chills, cough, nausea, vomiting or diarrhea. The patient also has a history of dementia, but is usually coherent enough to be able to recognize family members. Her family believes she last had a seizure in October of 2018. They are unsure who her Neurologist is. Home Medications Home Medications Medication Instructions Recorded Confirmed Type acetaminophen 1,000 mg PO DIRECTED PRN 08/10/18 03/18/19 History amlodipine 5 mg PO DAILY 08/10/18 03/18/19 History levothyroxine 100 mcg PO DAILY 08/10/18 03/18/19 History omeprazole 20 mg PO BID 08/10/18 03/18/19 History oxcarbazepine 300 mg PO DAILY 08/10/18 03/18/19 History ranitidine HCl 150 mg PO BID 08/10/18 03/18/19 History cyanocobalamin (vitamin B-12) 1,000 mcg PO DAILY 11/08/18 03/18/19 History bupropion HCl 300 mg PO DAILY 03/18/19 03/18/19 History citalopram 20 mg PO DAILY 03/18/19 03/18/19 History oxcarbazepine 450 mg PO HS 03/18/19 03/18/19 History Allergies Allergy/AdvReac Type Severity Reaction Status Date / Time codeine Allergy Unknown Verified 03/18/19 19:42 Past Med/Surg History Medical History Perforated gastric ulcer (Chronic) Status post repair Depression (Chronic) Seizure disorder (Chronic) Osteoarthritis (Chronic) CKD (chronic kidney disease), stage III (Chronic) GERD (gastroesophageal reflux disease) (Chronic) Dementia (Chronic) Dyslipidemia (Chronic) Hypothyroidism (Chronic) Weight loss (Chronic) Closed hip fracture (Chronic) Anxiety CKD (chronic kidney disease) stage 3, GFR 30-59 ml/min Dementia Depression Dyslipidemia GERD (gastroesophageal reflux disease) HTN (hypertension) History of peptic ulcer perforated prepyloric ulcer March 2016; required exploratory lap- abdominal washout + Jon patch repair Hypothyroidism MRSA (methicillin resistant Staphylococcus aureus) carrier nasal MRSA screen + 2015, negative 08/10/18 Seizure disorder Tobacco abuse Surgical History History of total bilateral knee replacement (Chronic) H/O exploratory laparotomy 2015 secondary to perforated gastric ulcer History of colonoscopy with polypectomy History of esophagogastroduodenoscopy (EGD) History of laminectomy thoracic S/P cholecystectomy S/P knee replacement S/P tubal ligation Family History Father COPD (chronic obstructive pulmonary disease) Mother Coronary heart disease Grandmother (Maternal) Pancreatic cancer Other Paternal family history of emphysema Social History Preferred Language: Maltese Communication Ability: Impaired Communication Ability Comment: dementia [employer] Supervisor Required: No Beliefs That Will Affect Care: None marital status: Current Living Situation: Spouse Other Information That Helps Us Care for You: No Feels Safe at Home: Yes Safety Concerns: Feels Safe At This Time Smoking Status: Unknown if ever smoked Hx Alcohol Use: No Hx Substance Use: No Review of Systems See HPI for pertinent positives & negatives. and A total of 10 systems reviewed and were otherwise negative Physical Exam Vital Signs Vital Signs - 24 hr 03/18/19 17:34 03/18/19 17:39 03/18/19 17:42 Temperature 36.9 C Temperature Source Oral Sepsis Recent Fever Within 48 Hours No Sepsis Action Taken by Nursing No Action Required Pulse Rate 76 76 78 Pulse Rate [Apical] Pulse Rate [Right Brachial] Pulse Rate from SpO2 Sensor 76 76 Pulse Rhythm [Right Brachial] Pulse Strength [Right Brachial] Respiratory Rate 14 16 13 Respiratory Effort / Characteristics Respiratory Depth Respiratory Pattern Blood Pressure 174/76 H 174/76 H Blood Pressure [Left Arm] Blood Pressure [Right Arm] Blood Pressure Mean 108 108 Blood Pressure Mean [Left Arm] Blood Pressure Mean [Right Arm] Blood Pressure Position [Left Arm] Blood Pressure Position [Right Arm] Pulse Oximetry 93 93 95 Oxygen Delivery Method Room Air 03/18/19 17:46 03/18/19 18:00 03/18/19 18:17 Temperature Temperature Source Sepsis Recent Fever Within 48 Hours Sepsis Action Taken by Nursing Pulse Rate 75 74 Pulse Rate [Apical] Pulse Rate [Right Brachial] Pulse Rate from SpO2 Sensor 75 Pulse Rhythm [Right Brachial] Pulse Strength [Right Brachial] Respiratory Rate 14 Respiratory Effort / Characteristics Respiratory Depth Respiratory Pattern Blood Pressure 146/72 H Blood Pressure [Left Arm] Blood Pressure [Right Arm] Blood Pressure Mean 96 Blood Pressure Mean [Left Arm] Blood Pressure Mean [Right Arm] Blood Pressure Position [Left Arm] Blood Pressure Position [Right Arm] Pulse Oximetry 93 93 94 Oxygen Delivery Method Room Air Room Air 03/18/19 18:30 03/18/19 19:30 03/18/19 20:00 Temperature Temperature Source Sepsis Recent Fever Within 48 Hours Sepsis Action Taken by Nursing Pulse Rate 73 71 72 Pulse Rate [Apical] Pulse Rate [Right Brachial] Pulse Rate from SpO2 Sensor 74 Pulse Rhythm [Right Brachial] Pulse Strength [Right Brachial] Respiratory Rate 18 13 14 Respiratory Effort / Characteristics Respiratory Depth Respiratory Pattern Blood Pressure 157/74 H 152/72 H 149/71 H Blood Pressure [Left Arm] Blood Pressure [Right Arm] Blood Pressure Mean 101 98 97 Blood Pressure Mean [Left Arm] Blood Pressure Mean [Right Arm] Blood Pressure Position [Left Arm] Blood Pressure Position [Right Arm] Pulse Oximetry 95 Oxygen Delivery Method 03/18/19 20:30 03/18/19 21:00 03/18/19 21:30 Temperature Temperature Source Sepsis Recent Fever Within 48 Hours Sepsis Action Taken by Nursing Pulse Rate 72 70 71 Pulse Rate [Apical] Pulse Rate [Right Brachial] Pulse Rate from SpO2 Sensor 72 70 71 Pulse Rhythm [Right Brachial] Pulse Strength [Right Brachial] Respiratory Rate 14 15 17 Respiratory Effort / Characteristics Respiratory Depth Respiratory Pattern Blood Pressure 165/74 H 181/83 H 175/82 H Blood Pressure [Left Arm] Blood Pressure [Right Arm] Blood Pressure Mean 104 115 113 Blood Pressure Mean [Left Arm] Blood Pressure Mean [Right Arm] Blood Pressure Position [Left Arm] Blood Pressure Position [Right Arm] Pulse Oximetry 96 96 97 Oxygen Delivery Method 03/18/19 22:00 03/18/19 22:30 03/18/19 23:00 Temperature Temperature Source Sepsis Recent Fever Within 48 Hours Sepsis Action Taken by Nursing Pulse Rate 72 70 72 Pulse Rate [Apical] Pulse Rate [Right Brachial] Pulse Rate from SpO2 Sensor 70 72 Pulse Rhythm [Right Brachial] Pulse Strength [Right Brachial] Respiratory Rate 16 16 15 Respiratory Effort / Characteristics Respiratory Depth Respiratory Pattern Blood Pressure 164/77 H 176/76 H 144/68 H Blood Pressure [Left Arm] Blood Pressure [Right Arm] Blood Pressure Mean 106 109 93 Blood Pressure Mean [Left Arm] Blood Pressure Mean [Right Arm] Blood Pressure Position [Left Arm] Blood Pressure Position [Right Arm] Pulse Oximetry 95 95 Oxygen Delivery Method 03/18/19 23:40 03/19/19 04:47 03/19/19 07:20 Temperature 36.6 C 37.0 C 36.7 C Temperature Source Oral Axillary Oral Sepsis Recent Fever Within 48 Hours Sepsis Action Taken by Nursing Pulse Rate Pulse Rate [Apical] 72 75 Pulse Rate [Right Brachial] 71 Pulse Rate from SpO2 Sensor Pulse Rhythm [Right Brachial] Pulse Strength [Right Brachial] Respiratory Rate 16 18 18 Respiratory Effort / Characteristics Respiratory Depth Respiratory Pattern Blood Pressure Blood Pressure [Left Arm] 174/78 H Blood Pressure [Right Arm] 147/63 H 157/75 H 180/75 H Blood Pressure Mean Blood Pressure Mean [Left Arm] 110 Blood Pressure Mean [Right Arm] 91 102 110 Blood Pressure Position [Left Arm] Lying Blood Pressure Position [Right Arm] Lying Lying Pulse Oximetry 97 93 90 Oxygen Delivery Method Room Air Room Air Room Air 03/19/19 08:00 03/19/19 11:42 03/19/19 15:21 Temperature 36.7 C 36.9 C Temperature Source Oral Oral Sepsis Recent Fever Within 48 Hours Sepsis Action Taken by Nursing Pulse Rate 73 Pulse Rate [Apical] 75 Pulse Rate [Right Brachial] 103 H Pulse Rate from SpO2 Sensor Pulse Rhythm [Right Brachial] Regular Pulse Strength [Right Brachial] Normal Respiratory Rate 20 20 Respiratory Effort / Characteristics Non-Labored Spontaneous Respiratory Depth Normal Respiratory Pattern Regular Blood Pressure Blood Pressure [Left Arm] 155/64 H 136/65 Blood Pressure [Right Arm] Blood Pressure Mean Blood Pressure Mean [Left Arm] 94 88 Blood Pressure Mean [Right Arm] Blood Pressure Position [Left Arm] Lying Left Lateral Blood Pressure Position [Right Arm] Pulse Oximetry 89 L Oxygen Delivery Method Room Air GENERAL: Sedated, post-ictal HENT: Normocephalic, atraumatic. Oropharynx with dry mucous membranes and otherwise unremarkable. EYES: Normal conjunctiva. Sclera non-icteric. No nystamgus. PEARRL. NECK: Supple. No nuchal rigidity. FROM. No JVD. No stridor. RESPIRATORY: CTAB, normal effort CARDIAC: Regular rate, normal rhythm. Extremities warm and well perfused. Pulses equal. ABDOMEN: Soft, non-distended. No tenderness to palpation. No rebound or guarding. No masses. RECTAL: Deferred. MUSCULOSKELETAL: Chest examination reveals no tenderness. The back is symmetrical on inspection without obvious abnormality. There is no CVA tenderness to palpation. No joint edema. LOWER EXTREMITIES: Calves are equal size bilaterally and non-tender. No edema. No discoloration. NEURO: Patient localizes pain. Incomprehensible sounds. She will not open her eyes. Patient appears to move all extremities equally. GCS of 8. SKIN: No rash or jaundice noted. Course 1826: The patient was evaluated in room C4 and a complete history and physical was performed. 2100: I discussed the patients case with Dr. Nguyễn, [facility] Hospitalist. The patient will be further evaluated. 2103: I reevaluated the patient. She is resting. I discussed her results and my recommendation she remain in the hospital for further evaluation and management and her family verbalized complete understanding and agreement. Administered Medications Amlodipine Besylate (Norvasc) 5 mg PO DAILY [facility] Stop: 04/18/19 08:59 Last Admin: 03/19/19 08:14 Dose: 5 mg Documented by: [id number] Citalopram Hydrobromide (Celexa) 20 mg PO DAILY [facility] Stop: 04/18/19 08:59 Last Admin: 03/19/19 08:15 Dose: 20 mg Documented by: [id number] Potassium Chloride/Sodium Chloride (Normal Saline W/20 Meq Kcl) 20 meq in 1,000 mls @ 60 mls/hr IV .[id number] STA Stop: 03/19/19 17:12 Last Infusion: 03/19/19 06:40 Dose: 60 mls/hr Documented by: [id number] Admin: 03/19/19 01:07 Dose: 60 mls/hr Documented by: [id number] Levothyroxine Sodium (Synthroid) 100 mcg PO DAILYBB KEZIA Stop: 04/18/19 06:29 Last Admin: 03/19/19 06:04 Dose: 100 mcg Documented by: [id number] Oxcarbazepine (Trileptal) 300 mg PO DAILY [facility] Stop: 04/18/19 08:59 Last Admin: 03/19/19 08:15 Dose: 300 mg Documented by: [id number] Pantoprazole Sodium (Protonix) 40 mg PO BID [facility]ZIA Stop: 04/18/19 08:59 Last Admin: 03/19/19 08:15 Dose: 40 mg Documented by: [id number] Ranitidine HCl (Zantac) 150 mg PO BID [facility]ZIA Stop: 04/18/19 08:59 Last Admin: 03/19/19 08:14 Dose: 150 mg Documented by: [id number] Discontinued Medications Ceftriaxone Sodium (Rocephin) Confirm Administered Dose 1,000 mg .ROUTE .STK-[facility] ONE Stop: 03/18/19 23:20 Last Admin: 03/18/19 23:30 Dose: 1,000 mg Documented by: [id number] Enoxaparin Sodium (Lovenox) 30 mg SQ QAM KEZIA Stop: 04/18/19 08:59 Last Admin: 03/19/19 15:12 Dose: Not Given Documented by: [id number] Hydralazine HCl (Hydralazine Hcl) 2.5 mg IV NOW ONE Stop: 03/18/19 02:42 Last Admin: 03/19/19 00:39 Dose: Not Given Documented by: [id number] Hydralazine HCl (Hydralazine Hcl) Confirm Administered Dose 20 mg .ROUTE .STK- ED ONE Stop: 03/18/19 23:20 Last Admin: 03/18/19 23:29 Dose: Not Given Documented by: [id number] Medical Decision Making Differential Diagnosis Differential diagnosis includes etiologies such as infection, hypoglycemia, electrolyte abnormalities, cardiac sources, intracerebral event, trauma, toxicologic, neurologic, as well as others were entertained. Medical Records Attestation: I reviewed the patient's medical records. Home Medications Current Medication List: was personally reviewed by me Laboratory Data Attestation: I reviewed the patient's lab results. Result diagrams: 03/19/19 06:57 03/19/19 06:57 Lab Results 03/18/19 03/18/19 03/18/19 Range/Units 17:39 17:39 17:39 WBC 5.10 (4.8-10.8) K/uL RBC 3.57 L (4.2-5.4) M/uL Hgb 11.1 L (12.0-16.0) g/dL Hct 32.2 L (37-47) % MCV 90.2 (80-100) fL MCH 31.1 (25-34) pg MCHC 34.5 (32-36) g/dL RDW Std Deviation 45.0 (36.4-46.3) fL RDW Coeff of Hollie 13.5 (11.5-14.5) % Plt Count 259 (130-400) K/uL MPV 9.7 (7.4-10.4) fL Immature Gran % (Auto) 0.2 % Neut % (Auto) 68.4 % Lymph % (Auto) 20.2 % [place] % (Auto) 8.4 % Eos % (Auto) 2.0 % Baso % (Auto) 0.8 % Immature Gran # (Auto) 0.01 (0.00-0.02) K/uL Neut # (Auto) 3.49 (1.4-6.5) K/uL Lymph # (Auto) 1.03 L (1.2-3.4) K/uL [place] # (Auto) 0.43 (0.11-0.59) K/uL Eos # (Auto) 0.10 (0-0.5) K/uL Baso # (Auto) 0.04 (0-0.2) K/uL PT (9.0-12.0) Seconds INR (0.9-1.1) Sodium 134 L (136-145) mmol/L Potassium 3.8 (3.5-5.1) mmol/L Chloride 103 (98-107) mmol/L Carbon Dioxide 26 (21-32) mmol/L Anion Gap 5.0 (3-11) BUN 18 (7-18) mg/dl Creatinine 0.93 (0.6-1.2) mg/dl Est Cr Clr Drug Dosing 41.3 ml/min Est GFR ( Amer) 69.7 Est GFR (Non-Af Amer) 60.1 BUN/Creatinine Ratio 19.1 (10-20) Glucose 92 (70-99) mg/dl Calcium 9.4 (8.5-10.1) mg/dl Phosphorus 3.1 (2.5-4.9) mg/dl Magnesium 1.8 (1.8-2.4) mg/dl Total Bilirubin 0.3 (0.2-1) mg/dl AST 8 L (15-37) U/L ALT 13 (12-78) U/L Alkaline Phosphatase 133 H (45-117) U/L Troponin I < 0.015 (0-0.045) ng/ml Total Protein 6.4 (6.4-8.2) gm/dl Albumin 3.4 (3.4-5.0) gm/dl Globulin 3.0 (2.5-4.0) gm/dl Albumin/Globulin Ratio 1.1 (0.9-2) Lipase 77 (73-393) U/L TSH 0.456 (0.300-4.500) uIu/ml Urine Color Urine Appearance (Clear) Urine pH (4.5-7.5) Ur Specific [place] (1.000-1.030) Urine Protein (Negative) Urine Glucose (UA) (Negative) Urine Ketones (Negative) Urine Blood (Negative) Urine Nitrite (Negative) Urine Bilirubin (Negative) Urine Urobilinogen (Negative) Ur Leukocyte Esterase (Negative) Urine WBC (Auto) (0-5) /hpf Urine RBC (Auto) (0-4) /hpf U Hyaline Cast (Auto) (0-5) /lpf U Epithel Cells (Auto) (0-5) /lpf Urine Bacteria (Auto) (Negative) 03/18/19 03/19/19 03/19/19 Range/Units 22:17 06:57 06:57 WBC 6.13 (4.8-10.8) K/uL RBC 3.86 L (4.2-5.4) M/uL Hgb 11.6 L (12.0-16.0) g/dL Hct 34.4 L (37-47) % MCV 89.1 (80-100) fL MCH 30.1 (25-34) pg MCHC 33.7 (32-36) g/dL RDW Std Deviation 43.4 (36.4-46.3) fL RDW Coeff of Hollie 13.3 (11.5-14.5) % Plt Count 257 (130-400) K/uL MPV 9.5 (7.4-10.4) fL Immature Gran % (Auto) 0.2 % Neut % (Auto) 66.6 % Lymph % (Auto) 23.2 % [place] % (Auto) 7.8 % Eos % (Auto) 1.5 % Baso % (Auto) 0.7 % Immature Gran # (Auto) 0.01 (0.00-0.02) K/uL Neut # (Auto) 4.09 (1.4-6.5) K/uL Lymph # (Auto) 1.42 (1.2-3.4) K/uL [place] # (Auto) 0.48 (0.11-0.59) K/uL Eos # (Auto) 0.09 (0-0.5) K/uL Baso # (Auto) 0.04 (0-0.2) K/uL PT (9.0-12.0) Seconds INR (0.9-1.1) Sodium 133 L (136-145) mmol/L Potassium 3.8 (3.5-5.1) mmol/L Chloride 103 (98-107) mmol/L Carbon Dioxide 26 (21-32) mmol/L Anion Gap 4.0 (3-11) BUN 13 (7-18) mg/dl Creatinine 0.86 (0.6-1.2) mg/dl Est Cr Clr Drug Dosing 44.7 ml/min Est GFR ( Amer) 76.6 Est GFR (Non-Af Amer) 66.1 BUN/Creatinine Ratio 15.1 (10-20) Glucose 70 (70-99) mg/dl Calcium 9.6 (8.5-10.1) mg/dl Phosphorus (2.5-4.9) mg/dl Magnesium (1.8-2.4) mg/dl Total Bilirubin (0.2-1) mg/dl AST (15-37) U/L ALT (12-78) U/L Alkaline Phosphatase (45-117) U/L Troponin I (0-0.045) ng/ml Total Protein (6.4-8.2) gm/dl Albumin (3.4-5.0) gm/dl Globulin (2.5-4.0) gm/dl Albumin/Globulin Ratio (0.9-2) Lipase (73-393) U/L TSH (0.300-4.500) uIu/ml Urine Color Yellow Urine Appearance Cloudy H (Clear) Urine pH 6.0 (4.5-7.5) Ur Specific [place] 1.017 (1.000-1.030) Urine Protein Negative (Negative) Urine Glucose (UA) Negative (Negative) Urine Ketones Negative (Negative) Urine Blood Negative (Negative) Urine Nitrite Negative (Negative) Urine Bilirubin Negative (Negative) Urine Urobilinogen Negative (Negative) Ur Leukocyte Esterase 1+ H (Negative) Urine WBC (Auto) 10-30 H (0-5) /hpf Urine RBC (Auto) 0-4 (0-4) /hpf U Hyaline Cast (Auto) 1-5 (0-5) /lpf U Epithel Cells (Auto) 5-10 H (0-5) /lpf Urine Bacteria (Auto) 2+ H (Negative) 03/19/19 Range/Units 06:57 WBC (4.8-10.8) K/uL RBC (4.2-5.4) M/uL Hgb (12.0-16.0) g/dL Hct (37-47) % MCV (80-100) fL MCH (25-34) pg MCHC (32-36) g/dL RDW Std Deviation (36.4-46.3) fL RDW Coeff of Hollie (11.5-14.5) % Plt Count (130-400) K/uL MPV (7.4-10.4) fL Immature Gran % (Auto) % Neut % (Auto) % Lymph % (Auto) % [place] % (Auto) % Eos % (Auto) % Baso % (Auto) % Immature Gran # (Auto) (0.00-0.02) K/uL Neut # (Auto) (1.4-6.5) K/uL Lymph # (Auto) (1.2-3.4) K/uL [place] # (Auto) (0.11-0.59) K/uL Eos # (Auto) (0-0.5) K/uL Baso # (Auto) (0-0.2) K/uL PT 10.3 (9.0-12.0) Seconds INR 1.0 (0.9-1.1) Sodium (136-145) mmol/L Potassium (3.5-5.1) mmol/L Chloride (98-107) mmol/L Carbon Dioxide (21-32) mmol/L Anion Gap (3-11) BUN (7-18) mg/dl Creatinine (0.6-1.2) mg/dl Est Cr Clr Drug Dosing ml/min Est GFR ( Amer) Est GFR (Non-Af Amer) BUN/Creatinine Ratio (10-20) Glucose (70-99) mg/dl Calcium (8.5-10.1) mg/dl Phosphorus (2.5-4.9) mg/dl Magnesium (1.8-2.4) mg/dl Total Bilirubin (0.2-1) mg/dl AST (15-37) U/L ALT (12-78) U/L Alkaline Phosphatase (45-117) U/L Troponin I (0-0.045) ng/ml Total Protein (6.4-8.2) gm/dl Albumin (3.4-5.0) gm/dl Globulin (2.5-4.0) gm/dl Albumin/Globulin Ratio (0.9-2) Lipase (73-393) U/L TSH (0.300-4.500) uIu/ml Urine Color Urine Appearance (Clear) Urine pH (4.5-7.5) Ur Specific [place] (1.000-1.030) Urine Protein (Negative) Urine Glucose (UA) (Negative) Urine Ketones (Negative) Urine Blood (Negative) Urine Nitrite (Negative) Urine Bilirubin (Negative) Urine Urobilinogen (Negative) Ur Leukocyte Esterase (Negative) Urine WBC (Auto) (0-5) /hpf Urine RBC (Auto) (0-4) /hpf U Hyaline Cast (Auto) (0-5) /lpf U Epithel Cells (Auto) (0-5) /lpf Urine Bacteria (Auto) (Negative) Imaging Data Radiologist's Impression: Radiology results as stated below per my review and the radiologist's interpretation: CT head/brain wo con CLINICAL HISTORY: 73 years-old Female with seizure. Acute seizure TECHNIQUE: Multiple axial CT images of the head were obtained without contrast. A dose lowering technique was utilized adhering to the principles of ALARA. CT DOSE: 537.48 mGy.cm COMPARISON: Head CT 10/20/2018. FINDINGS: No acute intracranial hemorrhage, midline shift, intracranial mass, hydrocephalus, territorial ischemia or abnormal extra-axial collection. Age- related involutional changes with ex vacuo ventriculomegaly. The study is limited secondary to patient positioning. Patchy white matter hypodensities redemonstrated suggestive of chronic microvascular ischemic disease. Cerebral vascular calcifications also noted. The calvarium is intact. The paranasal sinuses, mastoid air cells, and middle ear cavities are clear. IMPRESSION: No acute intracranial abnormality. The above report was generated using voice recognition software. It may contain grammatical, syntax or spelling errors. Electronically signed by: Devon Heart M.D. 03/18/2019 7:09 PM XR chest 1V portable HISTORY: 73 years-old Female Chest Pain acute atypical chest pain COMPARISON: Chest radiograph 11/08/2018 TECHNIQUE: Portable AP view of the chest FINDINGS: Patient is rotated to the left and also side bent to the right. Calcification the thoracic aortic arch. No pneumothorax, pleural effusion, focal airspace consolidation or overt pulmonary edema. Scattered catheter. Lungs are redemonstrated. Areas of mild chronic interstitial coarsening are unchanged. Degenerative changes of the shoulders and spine. Healed remote right-sided rib fractures. IMPRESSION: No acute process. The above report was generated using voice recognition software. It may contain grammatical, syntax or spelling errors. Electronically signed by: Devon Heart M.D. 03/18/2019 6:43 PM ECG Data Attestation: I personally reviewed and interpreted this ECG as follows: Indication: weakness Rate (beats per minute): 76 Rhythm: normal sinus Findings: + other (normal axis); no acute ischemic change Blood Pressure Blood Pressure Findings: Elevated blood pressure Blood Pressure Disposition: further management by hospitalist Head Trauma GCS Score: 8 MDM Narrative The patient is a 73-year-old woman with a past medical history of dementia, seizure disorder, CKD who presents to emergency department with seizure episodes today with 2 seizures occurring at home and third seizure in route with EMS when she was subsequently given Ativan with good effect. On arrival patient is sedated/postictal. She localizes to pain but will not open her eyes. She makes incomprehensible sounds. Patient's GCS is 8 however the family at the bedside confirms that she is DNR/DNI. Thus, we will not intubate. Despite the patient's altered mental status she does appear to be protecting her airway with normal oxygen saturation and respiratory rate. EKG unremarkable without evidence of acute ischemia. CXR negative. WBC and platelets wnl. H/H 11.1/32 at patient's baseline. Chemistry without acidosis. LFTs and electrolytes unremarkable. Troponin negative. UA pending. CT head negative for acute process. Given the patient's persistent altered mental status which is likely a combination of being postictal as well as her Ativan HYDRAULIC TESTER, reasonable to admit the patient for further observation/management. [facility]. Impression & Plan Seizure, Post-ictal state Discharge Plan Visit Data *Final* Discharge Date/Time: 03/18/19 23:17 Chief Complaint: Seizure Stated Complaint: SEIZURES ED Provider: Brandon Duran Discharge Problem: Seizure, Post-ictal state Patient Disposition: Admitted As Inpatient Discharge Instructions Interventions: ED Discharge Assessment Last Done: 03/18/19 23:17 The scribe's documentation has been prepared under my direction and personally reviewed by me in its entirety. I confirm that the note above accurately reflects all work, treatment, procedures, and medical decision making performed by me.
[2019-03-19] MEDS ORDERED: NSS + 20MEQ KCL 20 MEQ/1,000 ML BAG IV STA (00:33)
[2019-03-19] MEDS: LEVOTHYROXINE SODIUM 100 MCG TABLET PO SCH (06:04)
[2019-03-19 07:17] LABS: Basophils # (auto) 0.04 K/uL (0-0.2); Basophils % (auto) 0.7 %; Eosinophils # (auto) 0.09 K/uL (0-0.5); Eosinophils % (auto) 1.5 %; Hematocrit (blood only) 34.4 % (37-47); Hemoglobin 11.6 g/dL (12.0-16.0); Immature Granulocytes # (auto) 0.01 K/uL (0.00-0.02); Immature Granulocytes % (auto) 0.2 %; Lymphocytes # (auto) 1.42 K/uL (1.2-3.4); Lymphocytes % (auto) 23.2 %; Mean Corpuscular Hgb Conc 33.7 g/dL (32-36); Mean Corpuscular Volume 89.1 fL (80-100); Mean Platelet Volume 9.5 fL (7.4-10.4); Monocytes # (auto) 0.48 K/uL (0.11-0.59); Monocytes % (auto) 7.8 %; Neutrophils # (auto) 4.09 K/uL (1.4-6.5); Neutrophils % (auto) 66.6 %; Platelet Count 257 K/uL (130-400); RDW Coefficient of Variation 13.3 % (11.5-14.5); RDW Standard Deviation 43.4 fL (36.4-46.3); Red Blood Count 3.86 M/uL (4.2-5.4); White Blood Count 6.13 K/uL (4.8-10.8)
[2019-03-19 07:42] LABS: Prothrombin Time 10.3 Seconds (9.0-12.0)
[2019-03-19 07:53] LABS: BUN Creatinine Ratio 15.1 (10-20); Calcium 9.6 mg/dl (8.5-10.1); Creatinine Clr Calc Pharmacy 44.7 ml/min; Est GFR (African American) 76.6; Est GFR (Non-African American) 66.1; Potassium 3.8 mmol/L (3.5-5.1)
[2019-03-19] MEDS: AMLODIPINE BESYLATE 5 MG TAB PO SCH (08:14)
[2019-03-19] MEDS: CITALOPRAM 20 MG TAB PO SCH (08:15)
[2019-03-19] MEDS: PANTOprazole 40 MG TAB PO SCH ×2 (08:15→20:43)
[2019-03-19] MEDS: OXcarbazepine 150 MG TABLET PO SCH ×2 (08:15→20:43)
[2019-03-19] MEDS ORDERED: ENOXAPARIN INJ 30 MG/0.3 ML SYR SQ SCH (09:00)
--- NOTE | 2019-03-19 09:56 | Hospitalist Progress Note ---
Date of Service March 19, 2019 Assessment & Plan (1) Seizure: Likely briefly seizures Currently on oxcarbazepine CT head negative We will order EEG, and brain MRI Consult neurology Continue seizure precautions UTI Urine culture: Gram-negative bacilli Continue empiric ceftriaxone IV (3) HTN (hypertension): Continue amlodipine. (4) History of peptic ulcer: History of prepyloric ulcer with perforation. Continue ranitidine (5) CKD (chronic kidney disease) stage 3, GFR 30-59 ml/min: Stable (6) Hypothyroidism TSH 0.45 Continue levothyroxine. (7) Dyslipidemia: Pravastatin discontinued due to muscular weakness (8) Dementia: Currently somewhat confused per patient's family next Continue to monitor (9) Depression: Plan held as this may be lowering seizure potential Continue citalopram DVT prophylaxis SCDs Disposition Lives with family at home Will need PT OT evaluation next Subjective Follow-up for possible breakthrough seizures Seen with patient's , daughter at the bedside Daughter provided history Patient apparently had 2 spells yesterday at home, and one while at the ambulance At home patient was just sitting, relaxing and was noted to have flailing of both arms, and was staring afterwards, does not recognize family members She had another spell where she was again noted to have clearing of both arms and confusion after Daughter reports that she had another similar episode while in the ambulance This morning the patient had breakfast, but seems to be somewhat confused per family On exam, the patient is arousable, oriented to person Denies headache, dizziness, weakness or numbness No chest pain, shortness of breath no palpitations Positive dysuria No other symptoms Review of Systems Review of Systems: All systems reviewed & are unremarkable except as noted in HPI & below Physical Exam Physical Exam: General- oriented x 1, not in distress, speaks in sentences with no effort or accessory muscle use Head- (+) faint hematoma on the right forehead Eyes- anicteric Neck- no JVD Lungs- clear breath sounds bilaterally, no rales/wheezes Heart- normal rate, regular rhythm; no murmurs Abdomen- normal bowel sounds, nondistended, soft, nontender Extremities- no pretibial edema, no calf tenderness Neuro- alert, oriented x 1-2; no gross focal neurologic deficits Skin- warm & dry Results & Data Vital Signs (Past 12 Hours) Vital Signs Temp Pulse Pulse Pulse Resp BP BP 03/19/19 07:20 36.7 C 75 18 174/78 H 03/19/19 04:47 37.0 C 72 18 03/18/19 23:40 36.6 C 71 16 03/18/19 23:00 72 15 144/68 H 03/18/19 22:30 70 16 176/76 H 03/18/19 22:00 72 16 164/77 H BP Pulse Ox 03/19/19 07:20 180/75 H 90 03/19/19 04:47 157/75 H 93 03/18/19 23:40 147/63 H 97 03/18/19 23:00 95 03/18/19 22:30 95 03/18/19 22:00 Laboratory Results Laboratory Results - last 24 hr 03/18/19 03/18/19 03/18/19 17:39 17:39 17:39 WBC 5.10 RBC 3.57 L Hgb 11.1 L Hct 32.2 L MCV 90.2 MCH 31.1 MCHC 34.5 RDW Std Deviation 45.0 RDW Coeff of Hollie 13.5 Plt Count 259 MPV 9.7 Immature Gran % (Auto) 0.2 Neut % (Auto) 68.4 Lymph % (Auto) 20.2 [place] % (Auto) 8.4 Eos % (Auto) 2.0 Baso % (Auto) 0.8 Immature Gran # (Auto) 0.01 Neut # (Auto) 3.49 Lymph # (Auto) 1.03 L [place] # (Auto) 0.43 Eos # (Auto) 0.10 Baso # (Auto) 0.04 PT INR Sodium 134 L Potassium 3.8 Chloride 103 Carbon Dioxide 26 Anion Gap 5.0 BUN 18 Creatinine 0.93 Est Cr Clr Drug Dosing 41.3 Est GFR ( Amer) 69.7 Est GFR (Non-Af Amer) 60.1 BUN/Creatinine Ratio 19.1 Glucose 92 Calcium 9.4 Phosphorus 3.1 Magnesium 1.8 Total Bilirubin 0.3 AST 8 L ALT 13 Alkaline Phosphatase 133 H Troponin I < 0.015 Total Protein 6.4 Albumin 3.4 Globulin 3.0 Albumin/Globulin Ratio 1.1 Lipase 77 TSH 0.456 Urine Color Urine Appearance Urine pH Ur Specific [place] Urine Protein Urine Glucose (UA) Urine Ketones Urine Blood Urine Nitrite Urine Bilirubin Urine Urobilinogen Ur Leukocyte Esterase Urine WBC (Auto) Urine RBC (Auto) U Hyaline Cast (Auto) U Epithel Cells (Auto) Urine Bacteria (Auto) 03/18/19 03/19/19 03/19/19 22:17 06:57 06:57 WBC 6.13 RBC 3.86 L Hgb 11.6 L Hct 34.4 L MCV 89.1 MCH 30.1 MCHC 33.7 RDW Std Deviation 43.4 RDW Coeff of Hollie 13.3 Plt Count 257 MPV 9.5 Immature Gran % (Auto) 0.2 Neut % (Auto) 66.6 Lymph % (Auto) 23.2 [place] % (Auto) 7.8 Eos % (Auto) 1.5 Baso % (Auto) 0.7 Immature Gran # (Auto) 0.01 Neut # (Auto) 4.09 Lymph # (Auto) 1.42 [place] # (Auto) 0.48 Eos # (Auto) 0.09 Baso # (Auto) 0.04 PT INR Sodium 133 L Potassium 3.8 Chloride 103 Carbon Dioxide 26 Anion Gap 4.0 BUN 13 Creatinine 0.86 Est Cr Clr Drug Dosing 44.7 Est GFR ( Amer) 76.6 Est GFR (Non-Af Amer) 66.1 BUN/Creatinine Ratio 15.1 Glucose 70 Calcium 9.6 Phosphorus Magnesium Total Bilirubin AST ALT Alkaline Phosphatase Troponin I Total Protein Albumin Globulin Albumin/Globulin Ratio Lipase TSH Urine Color Yellow Urine Appearance Cloudy H Urine pH 6.0 Ur Specific [place] 1.017 Urine Protein Negative Urine Glucose (UA) Negative Urine Ketones Negative Urine Blood Negative Urine Nitrite Negative Urine Bilirubin Negative Urine Urobilinogen Negative Ur Leukocyte Esterase 1+ H Urine WBC (Auto) 10-30 H Urine RBC (Auto) 0-4 U Hyaline Cast (Auto) 1-5 U Epithel Cells (Auto) 5-10 H Urine Bacteria (Auto) 2+ H 03/19/19 06:57 WBC RBC Hgb Hct MCV MCH MCHC RDW Std Deviation RDW Coeff of Hollie Plt Count MPV Immature Gran % (Auto) Neut % (Auto) Lymph % (Auto) [place] % (Auto) Eos % (Auto) Baso % (Auto) Immature Gran # (Auto) Neut # (Auto) Lymph # (Auto) [place] # (Auto) Eos # (Auto) Baso # (Auto) PT 10.3 INR 1.0 Sodium Potassium Chloride Carbon Dioxide Anion Gap BUN Creatinine Est Cr Clr Drug Dosing Est GFR ( Amer) Est GFR (Non-Af Amer) BUN/Creatinine Ratio Glucose Calcium Phosphorus Magnesium Total Bilirubin AST ALT Alkaline Phosphatase Troponin I Total Protein Albumin Globulin Albumin/Globulin Ratio Lipase TSH Urine Color Urine Appearance Urine pH Ur Specific [place] Urine Protein Urine Glucose (UA) Urine Ketones Urine Blood Urine Nitrite Urine Bilirubin Urine Urobilinogen Ur Leukocyte Esterase Urine WBC (Auto) Urine RBC (Auto) U Hyaline Cast (Auto) U Epithel Cells (Auto) Urine Bacteria (Auto)
--- NOTE | 2019-03-19 11:25 | Magnetic Resonance Report ---
Study: MRI brain HISTORY: Mental status change. Prior studies: CT 03/18/2019 FINDINGS: Diffusion-weighted images are negative for an acute ischemic event. There are findings of g eneralized cerebral atrophy and chronic small vessel change felt to be age-related. Mild compensatory prominence of the ventricular system. The sella and parasellar regions are unremark able. IMPRESSION: 1. No acute intracranial abnormality. 2. No evidence for an acute ischemic insult. 3. Considerable generalized cerebellar as well as cerebral atrophy as well as considerable chronic sm all vessel change. Electronically signed by: Sudarshan Jamil M.D. 03/19/2019 11:24 AM
[2019-03-19] MEDS ORDERED: PNEUMOCOCCAL POLYSACCHARIDES 25 MCG/0.5 ML VIAL/SYR IM ONE (13:00)
[2019-03-19] MEDS ORDERED: PNEUMOCOCCAL ADMINISTRATION CHARGE ONE (13:00)
[2019-03-19] MEDS: cefTRIAXone SODIUM 1,000 MG in DEXTROSE 5% 50 ML IV SCH (21:39)
[2019-03-20] MEDS: OXcarbazepine 150 MG TABLET PO SCH ×2 (07:18→23:21)
[2019-03-20] MEDS: PANTOprazole 40 MG TAB PO SCH ×2 (07:18→22:10)
[2019-03-20] MEDS: LEVOTHYROXINE SODIUM 100 MCG TABLET PO SCH (07:19)
[2019-03-20] MEDS: AMLODIPINE BESYLATE 5 MG TAB PO SCH (07:19)
[2019-03-20] MEDS: CITALOPRAM 20 MG TAB PO SCH (07:19)
[2019-03-20 08:13] LABS: BUN Creatinine Ratio 20.3 (10-20); Calcium 10.1 mg/dl (8.5-10.1); Creatinine Clr Calc Pharmacy 42.3 ml/min; Est GFR (African American) 74.5; Est GFR (Non-African American) 64.3
[2019-03-20 08:15] LABS: Basophils # (auto) 0.02 K/uL (0-0.2); Basophils % (auto) 0.4 %; Eosinophils # (auto) 0.12 K/uL (0-0.5); Eosinophils % (auto) 2.3 %; Hematocrit (blood only) 31.4 % (37-47); Hemoglobin 11.1 g/dL (12.0-16.0); Lymphocytes # (auto) 1.29 K/uL (1.2-3.4); Mean Corpuscular Hgb Conc 35.4 g/dL (32-36); Mean Corpuscular Volume 88.7 fL (80-100); Mean Platelet Volume 9.5 fL (7.4-10.4); Monocytes % (auto) 11.7 %; Neutrophils # (auto) 3.12 K/uL (1.4-6.5); Neutrophils % (auto) 60.6 %; Platelet Count 250 K/uL (130-400); RDW Coefficient of Variation 13.2 % (11.5-14.5); RDW Standard Deviation 43.2 fL (36.4-46.3); Red Blood Count 3.54 M/uL (4.2-5.4); White Blood Count 5.15 K/uL (4.8-10.8)
--- NOTE | 2019-03-20 09:55 | Neurology Consultation ---
Date of Consultation March 20, 2019 History of Present Illness Reason for Consultation: Assessment / Plan: Urinary Tract Infection Dementia Seizure Depression A 73 year old woman with history of mixed dementia and epilepsy on Trileptal 300 QAM / 450 WQHS admitted for breakthrough seizure at home witnessed by family. Patient found to have a UTI on admission and started on Ceftriaxone. MRI brain completed and negative for acute intracranial process. Patient home Wellbutrin was stopped. Trileptal level is PENDING. - On examine patient appears to have hypoactive delirium. Has history fo severe dementia. PAtient reporting her name as "Ene". She was reportedly up most of the night. - Possible breakthrough seizure secondary to infection (UTI). Patient started on Ceftriaxone for UTI. Urine cultures positive for >100,000 E Coli. - Trileptal level pending - Recommend increasing dose of Trileptal to 450 mg twice daily for now. Will plan to adjust dose pending the result of her level. Usual dose range of Trileptal for epilepsy is 900-2400 mg/day. - Agree with STOPPING home Wellbutrin. - I discussed plan with daughter and at baseline. Attending Physician: Ruel Tucker MD History of Present Illness A 73 year old woman with history of mixed dementia and seizures on Trileptal who was admitted to [facility] for possible breakthrough seizure. Patient follows with Dr. Smith. Was last seen Jul 2018. Dose of trileptal was increased (150/300) due to possible seizure in Jul 2018 when she was admitted for fever and underwent LP. Was treated with Abx. She was on Aricept but stopped due to weight loss and peptic ulcer disease. She has history of GI bleed. Per chart review she is on Wellbutrin 300 mg daily for depression. She was brought to the ED via EMS on 03/18/2019 in which her family states she had 2 seizures at home and 1 while en route to the ED. Her family reports during the episodes, the patient "shakes all over, her eyes go to the back of her head and her mouth is wide open". The episodes last for a few seconds. On admission she was found to have a urinary tract infection (cultures + E coli). MRI brain was also completed which showed no acute intracranial process. NA was 133-135. Tegretol level is PENDING. Chest Xray Negative. Wellbutrin was Stopped. She is DNR/DNI She is currently on ceftriazone for UTI. Her Trileptal dose is 300 QAM / 450 QHS. Allergies Allergy/AdvReac Type Severity Reaction Status Date / Time codeine Allergy Unknown Verified 03/18/19 19:42 Home Medications Home Medications Medication Instructions Recorded Confirmed Type acetaminophen 1,000 mg PO DIRECTED PRN 08/10/18 03/18/19 History amlodipine 5 mg PO DAILY 08/10/18 03/18/19 History levothyroxine 100 mcg PO DAILY 08/10/18 03/18/19 History omeprazole 20 mg PO BID 08/10/18 03/18/19 History oxcarbazepine 300 mg PO DAILY 08/10/18 03/18/19 History ranitidine HCl 150 mg PO BID 08/10/18 03/18/19 History cyanocobalamin (vitamin B-12) 1,000 mcg PO DAILY 11/08/18 03/18/19 History bupropion HCl 300 mg PO DAILY 03/18/19 03/18/19 History citalopram 20 mg PO DAILY 03/18/19 03/18/19 History oxcarbazepine 450 mg PO HS 03/18/19 03/18/19 History Patient History Medical History Perforated gastric ulcer (Chronic) Status post repair Depression (Chronic) Seizure disorder (Chronic) Osteoarthritis (Chronic) CKD (chronic kidney disease), stage III (Chronic) GERD (gastroesophageal reflux disease) (Chronic) Dementia (Chronic) Dyslipidemia (Chronic) Hypothyroidism (Chronic) Weight loss (Chronic) Closed hip fracture (Chronic) Anxiety CKD (chronic kidney disease) stage 3, GFR 30-59 ml/min Dementia Depression Dyslipidemia GERD (gastroesophageal reflux disease) HTN (hypertension) History of peptic ulcer perforated prepyloric ulcer March 2016; required exploratory lap- abdominal washout + Jon patch repair Hypothyroidism MRSA (methicillin resistant Staphylococcus aureus) carrier nasal MRSA screen + 2015, negative 08/10/18 Seizure disorder Tobacco abuse Surgical History History of total bilateral knee replacement (Chronic) H/O exploratory laparotomy 2015 secondary to perforated gastric ulcer History of colonoscopy with polypectomy History of esophagogastroduodenoscopy (EGD) History of laminectomy thoracic S/P cholecystectomy S/P knee replacement S/P tubal ligation Family History Father COPD (chronic obstructive pulmonary disease) Mother Coronary heart disease Grandmother (Maternal) Pancreatic cancer Other Paternal family history of emphysema Social History Preferred Language: Macedonian Communication Ability: Impaired 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 Beliefs That Will Affect Care: None marital status: Current Living Situation: Spouse Other Information That Helps Us Care for You: No Feels Safe at Home: Yes Safety Concerns: Feels Safe At This Time Smoking Status: Unknown if ever smoked Hx Alcohol Use: No Hx Substance Use: No Physical Exam Physical Exam: EXAM: Constitutional: sleeping, thin, appears chronically ill Eyes: normal lids, normal conjunctiva Respiratory: normal effort Cardiovascular: normal pulses Abdomen: non distended Skin: no rashes, lesions, or ulcers noted Psychiatric: aggitated with examine NEUROLOGIC EXAMINATION: Appearance: no acute distress Orientation: disoriented to name Mental Status: obtunded - falls asleep without repeat stimulation Memory: poor Attention: decreased Knowledge: Poor Language: intermittently following simple commands Speech: no dysarthria Cranial Nerves: CN 2 - no visual defect on confrontation and pupils round, equal, reactive to light CN 3, 4, 6 - extra-ocular movements intact CN 5 - facial sensation intact CN 7 - no facial asymmetry CN 8 - intact hearing CN 9, 10 - palate symmetric CN 11 - not cooperating CN 12 - tongue midline , no abrasion noted on tongue Gait: deferred due to encephalopathy Coordination: tremulous with outstretched hands, no cooperating for finger to nose, no rest tremor or myoclonus noted Sensory: intact to noxious stimuli Muscle Tone: normal Muscle exam: FDI atrophy (L>R), not cooperating for formal stength testing but moving all 4 extremities against gravity, she is able sit upright without assistance Reflexes: No ankle clonus, positive grasp reflex Results & Data Vital Signs (Past 12 Hours) Vital Signs Temp Pulse Pulse Resp BP BP Pulse Ox 03/20/19 04:30 36.7 C 82 18 154/74 H 97 03/20/19 00:00 80 03/19/19 22:50 36.5 C 79 19 160/71 H 98 Laboratory Results Sodium 135 Diagnostic Findings MRI Brain on 03/19/2019: 1. No acute intracranial abnormality. 2. No evidence for an acute ischemic insult. 3. Considerable generalized cerebellar as well as cerebral atrophy as well as considerable chronic small vessel change.
[2019-03-20] MEDS ORDERED: OXcarbazepine 150 MG TABLET PO STA (12:18)
--- NOTE | 2019-03-20 15:47 | Hospitalist Progress Note ---
Date of Service March 20, 2019 Assessment & Plan (1) Seizure: Breakthrough seizure secondary to UTI Currently on oxcarbazepine CT head negative Brain MRI, no acute process Neurology consulted Dr. Palacios Recommended to increase Trileptal to 450 mg twice daily Continue seizure precautions UTI Urine culture: E. coli Continue ceftriaxone IV (3) HTN (hypertension): Continue amlodipine. (4) History of peptic ulcer: History of prepyloric ulcer with perforation. Continue ranitidine (5) CKD (chronic kidney disease) stage 3, GFR 30-59 ml/min: Stable (6) Hypothyroidism TSH 0.45 Continue levothyroxine. (7) Dyslipidemia: Pravastatin discontinued due to muscular weakness (8) Dementia: Somewhat confused as per family Continue to monitor (9) Depression: Bupropion discontinued- per Neuro, may lower seizure threshold Continue citalopram DVT prophylaxis SCDs Disposition Lives with family at home PT OT evaluation Subjective Follow-up seizures Seen with patient's STENCILER at the bedside Patient is more awake and alert, oriented x1 States she feels fine overall Denies headache, dizziness, chest pain, dyspnea Denies abdominal pain, problems with voiding No other symptoms Review of Systems Review of Systems: All systems reviewed & are unremarkable except as noted in HPI & below Physical Exam Physical Exam: General- oriented x 1, not in distress, speaks in sentences with no effort or accessory muscle use Eyes- anicteric Neck- no JVD Lungs- clear breath sounds bilaterally, no rales/wheezes Heart- normal rate, regular rhythm; no murmurs Abdomen- normal bowel sounds, nondistended, soft, nontender Extremities- no pretibial edema, no calf tenderness Neuro- alert, oriented x 1; confused: No gross focal neurologic deficits Skin- warm & dry Results & Data Vital Signs (Past 12 Hours) Vital Signs Temp Pulse Resp BP Pulse Ox 03/20/19 14:47 36.7 C 68 20 128/70 96 03/20/19 04:30 36.7 C 82 18 154/74 H 97 Laboratory Results Laboratory Results - last 24 hr 03/20/19 03/20/19 06:35 06:35 WBC 5.15 RBC 3.54 L Hgb 11.1 L Hct 31.4 L MCV 88.7 MCH 31.4 MCHC 35.4 RDW Std Deviation 43.2 RDW Coeff of Hollie 13.2 Plt Count 250 MPV 9.5 Immature Gran % (Auto) 0.0 Neut % (Auto) 60.6 Lymph % (Auto) 25.0 [place] % (Auto) 11.7 Eos % (Auto) 2.3 Baso % (Auto) 0.4 Immature Gran # (Auto) 0.00 Neut # (Auto) 3.12 Lymph # (Auto) 1.29 [place] # (Auto) 0.60 H Eos # (Auto) 0.12 Baso # (Auto) 0.02 Sodium 135 L Potassium 4.0 Chloride 104 Carbon Dioxide 24 Anion Gap 8.0 BUN 18 Creatinine 0.88 Est Cr Clr Drug Dosing 42.3 Est GFR ( Amer) 74.5 Est GFR (Non-Af Amer) 64.3 BUN/Creatinine Ratio 20.3 H Glucose 83 Calcium 10.1
[2019-03-20] MEDS ORDERED: LORazepam 0.5 MG/1 ML VIAL IV ONE (19:15)
[2019-03-20] MEDS: cefTRIAXone SODIUM 1,000 MG in DEXTROSE 5% 50 ML IV SCH (21:45)
[2019-03-21] MEDS: AMLODIPINE BESYLATE 5 MG TAB PO SCH (07:52)
[2019-03-21] MEDS: OXcarbazepine 150 MG TABLET PO SCH ×2 (07:52→20:32)
[2019-03-21] MEDS: PANTOprazole 40 MG TAB PO SCH ×2 (07:52→20:33)
[2019-03-21] MEDS: CITALOPRAM 20 MG TAB PO SCH (07:52)
[2019-03-21] MEDS: LEVOTHYROXINE SODIUM 100 MCG TABLET PO SCH (07:52)
--- NOTE | 2019-03-21 15:08 | Hospitalist Progress Note ---
Date of Service March 21, 2019 Assessment & Plan (1) Seizure: Breakthrough seizure secondary to UTI Currently on oxcarbazepine CT head negative Brain MRI, no acute process Neurology consulted Dr. Hurtado input and recommendations Recommended to increase Trileptal to 450 mg twice daily Continue seizure precautions No more seizures UTI Urine culture: E. coli-pansensitive Continue ceftriaxone IV Denies any urinary symptoms HTN (hypertension): Continue amlodipine Blood pressure seems to be well controlled. History of peptic ulcer: History of prepyloric ulcer with perforation. Continue ranitidine CKD (chronic kidney disease) stage 3, GFR 30-59 ml/min: Stable Hypothyroidism TSH 0.45 Continue levothyroxine. Dyslipidemia: Pravastatin discontinued due to muscular weakness Dementia: Somewhat confused as per family Continue to monitor Seems to be at her baseline Discussed with the family members and the patient-agreeable to be discharged tomorrow Depression: Bupropion discontinued- per Neuro, may lower seizure threshold Continue citalopram DVT prophylaxis SCDs Disposition Lives with family at home PT OT evaluation Likely discharge tomorrow Subjective 03/21 Patient was then examined the medical telemetry unit Denies any symptoms today and has been ambulating well in the room Discussed with family members Review of Systems Review of Systems: All systems reviewed and are unremarkable except as noted. Neurologic: + unsteadiness and + generalized weakness; no gait abnormality Physical Exam Physical Exam: No apparent distress at rest Constitutional: average body habitus Eyes: PERRL, conjunctivae normal, anicteric sclerae ENMT: external ear and nose normal, oropharynx normal Neck: trachea midline, no thyromegaly Respiratory: normal respiratory effort Auscultation: + diminished lung sounds; no crackles and no wheezes Cardiovascular: Rate/Rhythm: regular rate and regular rhythm Heart Sounds: normal S1 and normal S2 Gastrointestinal (Abdomen): Inspection/Auscultation: abdomen normal to inspection and normal bowel sounds Percussion/Palpation: abdomen soft; abdomen nontender Neurologic: Alert, awake and oriented. Generally weak Results & Data Vital Signs (Past 12 Hours) Vital Signs Temp Pulse Resp BP Pulse Ox 03/21/19 11:20 36.7 C 67 18 113/57 L 95 Medications Administered Current Inpatient Medications Acetaminophen (Tylenol) 650 mg PO Q4H PRN PRN Reason: Pain or Fever Stop: 04/17/19 22:51 Amlodipine Besylate (Norvasc) 5 mg PO DAILY KEZIA Stop: 04/18/19 08:59 Last Admin: 03/21/19 07:52 Dose: 5 mg Documented by: Citalopram Hydrobromide (Celexa) 20 mg PO DAILY KEZIA Stop: 04/18/19 08:59 Last Admin: 03/21/19 07:52 Dose: 20 mg Documented by: Lorazepam (Ativan) 1 mg in 2 mls @ 0.5 mls/min IV Q10M PRN PRN Reason: seizures Stop: 04/17/19 22:51 Ceftriaxone Sodium 1,000 mg/ (Dextrose) 50 mls @ 100 mls/hr IV Q24H [facility]; Protocol Stop: 03/28/19 21:59 Last Infusion: 03/20/19 22:21 Dose: Infused Documented by: Levothyroxine Sodium (Synthroid) 100 mcg PO DAILYBB [facility] Stop: 04/18/19 06:29 Last Admin: 03/21/19 07:52 Dose: 100 mcg Documented by: Oxcarbazepine (Trileptal) 300 mg PO DAILY KEZIA Stop: 04/18/19 08:59 Last Admin: 03/21/19 07:52 Dose: 300 mg Documented by: Oxcarbazepine (Trileptal) 450 mg PO HS [facility] Stop: 04/18/19 20:59 Last Admin: 03/20/19 23:21 Dose: Not Given Documented by: Oxycodone HCl (Roxicodone Immediate Rel) 5 mg PO Q4H PRN PRN Reason: Pain Stop: 04/01/19 22:51 Pantoprazole Sodium (Protonix) 40 mg PO BID KEZIA Stop: 04/18/19 08:59 Last Admin: 03/21/19 07:52 Dose: 40 mg Documented by: Ranitidine HCl (Zantac) 150 mg PO BID [facility] Stop: 04/18/19 08:59 Last Admin: 03/21/19 07:51 Dose: 150 mg Documented by:
--- NOTE | 2019-03-21 15:28 | Neurology Progress Note ---
Date of Service March 21, 2019 Assessment & Plan (1) Seizure: 1. seizure- likely break through seizure due to infection - UTI 2. UTI - treat to culture 3. dementia- continue to monitor for falls and safety issues 4. Trileptal level - pending 5. Trileptal level increased from 300 mg am 450 mg pm to 450 mg twice daily for now will adjust to level if needed 6. follow up with Dr Ina Smith in 4-6 weeks for further changes needed will sign off for now will be available for further input as needed Supervising Physician Co-Signing Physician Notes I have seen and discussed above patient with Dr Corona Quiles. Patient was seen at bedside this afternoon. No family at bedside. Sitter currently present. Patient more alert and talkative today compared to yesterday. Reports feeling better. Admitted with breakthrough seizure in the setting of a UTI. Recommend to continue increased dose of Trileptal 450 mg twice daily. Level pending. Will plan to discharge on Trileptal 450 mg daily. May consider reducing dose back to previous as outpatient. Will defer antibiotic treatment course to primary team. PT/OT Please call with any further questions or concerns. Otherwise we will arrange for patient to follow up with us after discharge. Yinka Desai is a 73 year old female who presents to the ED after experiencing a seizure at home. She had a seizure in which she was shaking all over. He reports this lasted for about 10 to 15 minutes and then 30 minutes later, she developed another seizure. on the way to the hospital she had another seizure in the ambulance and was given IV ativan. There was no tongue biting, vomiting, loss of bowel or bladder control. He states she lives in their home and he dispenses her medications and there have been no medication changes recently. Today she states she is feeling well. Her and daughter are in the room and states she is at her baseline. denies CP, SOB, abdominal pain, one sided weakness, numbness tingling, N, V. 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 No evidence for an acute ischemic insult. Considerable generalized cerebellar as well as cerebral atrophy as well as considerable chronic small vessel change.
[2019-03-21] MEDS: cefTRIAXone SODIUM 1,000 MG in DEXTROSE 5% 50 ML IV SCH (21:31)
--- OUTSIDE RECORDS SUMMARY | 2019-03-21 22:32 | External Medical Summary | Continuity of Care Document ---
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 Start: 016 Quantity: 60 Refills: 1 amLODIPine Besylate 5 MG Oral Tablet; TAKE 1 TABLET DAILY DIRECTED. Start: 01-May-2016 Refills: 0 buPROPion HCl ER (SR) 200 MG Oral Tablet Extended Release 12 Hour; TAKE 1 TABLET TWICE DAILY. Start: 01-May-2016 Refills: 0 Citalopram Hydrobromide 40 MG Oral Tablet; TAKE 1 TABLET IRMA LY. Start: 01-May-2016 Refills: 0 Donepezil HCl - 5 MG Oral Tablet; TAKE 1 TABLET DAILY DIR ECTED. Start: 01-May-2016 Refills: 0 Levothyroxine Sodium 100 MCG Oral Tablet; TAKE 1 TABLET ANA Y. Start: 01-May-2016 Refills: 0 Pravastatin Sodium 40 MG Oral Tablet; TAKE 1 TABLET DAILY. Start: 01-May-2016 Refills: 0 Omeprazole 20 MG Oral Capsule Delayed Release; TAKE 1 CAPSUL E TWICE DAILY. Start: 11-Jul-2016 Refills: 0 raNITIdine HCl - 150 MG Oral Tablet; TAKE 1 TABLET AT BEDTIM E. Start: 11-Jul-2016 Refills: 0 Procedures History of Exploratory Laparotomy Status : Completed 10-Apr-2016 0:00 History of Back Surgery Status: Complete d History of Knee Replacement Status: Comp leted History of Tubal Ligation Status: Comple kavya Immunizations Immunizations not documented Family History Father Family history of cardiac disorder (V17.49) (Z82.49) Status: Active Family history of malignant neoplasm (V16.9) (Z80.9) Status: Active Social History - Smoking Status Current every day smoker Plan of Treatment Planned Observations Planned Goals not documented Results No Known Results Results not documented
[2019-03-22] MEDS: LEVOTHYROXINE SODIUM 100 MCG TABLET PO SCH (05:44)
[2019-03-22 06:31] LABS: Hematocrit (blood only) 33.5 % (37-47); Hemoglobin 11.6 g/dL (12.0-16.0); Mean Corpuscular Hgb Conc 34.6 g/dL (32-36); Mean Corpuscular Volume 88.4 fL (80-100); Mean Platelet Volume 9.3 fL (7.4-10.4); Platelet Count 251 K/uL (130-400); RDW Coefficient of Variation 13.2 % (11.5-14.5); RDW Standard Deviation 42.7 fL (36.4-46.3); Red Blood Count 3.79 M/uL (4.2-5.4); White Blood Count 6.55 K/uL (4.8-10.8)
[2019-03-22 07:04] LABS: Creatinine Clr Calc Pharmacy 37.6 ml/min; Est GFR (African American) 64.6; Est GFR (Non-African American) 55.7
[2019-03-22] MEDS: AMLODIPINE BESYLATE 5 MG TAB PO SCH (08:14)
[2019-03-22] MEDS: OXcarbazepine 150 MG TABLET PO SCH (08:15)
[2019-03-22] MEDS: PANTOprazole 40 MG TAB PO SCH (08:15)
[2019-03-22] MEDS: CITALOPRAM 20 MG TAB PO SCH (08:15)
--- NOTE | 2019-03-22 12:40 | Hospitalist Progress Note ---
Date of Service March 22, 2019 Assessment & Plan (1) Seizure: Breakthrough seizure secondary to UTI Currently on oxcarbazepine CT head negative Brain MRI, no acute process Neurology consulted Dr. Hurtado input and recommendations Recommended to increase Trileptal to 450 mg twice daily No more seizures in hospital Patient has been ambulating without any difficulty She is ready to be discharged UTI Urine culture: E. coli-pansensitive Continue ceftriaxone IV Denies any urinary symptoms Resume oral Keflex to finish the course of antibiotic HTN (hypertension): Continue amlodipine Blood pressure seems to be well controlled. History of peptic ulcer: History of prepyloric ulcer with perforation. Continue ranitidine CKD (chronic kidney disease) stage 3, GFR 30-59 ml/min: Stable Hypothyroidism TSH 0.45 Continue levothyroxine. Dyslipidemia: Pravastatin discontinued due to muscular weakness Dementia: Somewhat confused as per family Continue to monitor Seems to be at her baseline Discussed with the family members and the patient-agreeable to be discharged tomorrow Depression: Bupropion discontinued- per Neuro, may lower seizure threshold Continue citalopram DVT prophylaxis SCDs Disposition Lives with family at home PT OT evaluation Distress this afternoon Subjective 03/21 Patient was then examined the medical telemetry unit Denies any symptoms today and has been ambulating well in the room Discussed with family members 03/22 The patient is seen and examined in presence of family members She denies any symptoms today No more seizures and she has been ambulating without any difficulty Review of Systems Review of Systems: All systems reviewed and are unremarkable except as noted below Neurologic: Alert, awake and oriented. Generally weak but no focal neuro deficit Physical Exam Physical Exam: No apparent distress at rest Constitutional: average body habitus Eyes: PERRL, conjunctivae normal, anicteric sclerae ENMT: external ear and nose normal, oropharynx normal Neck: trachea midline, no thyromegaly Respiratory: normal respiratory effort Auscultation: + diminished lung sounds; no crackles and no wheezes Cardiovascular: Rate/Rhythm: regular rate and regular rhythm Heart Sounds: normal S1 and normal S2 Gastrointestinal (Abdomen): Inspection/Auscultation: abdomen normal to inspection and normal bowel sounds Percussion/Palpation: abdomen soft; abdomen nontender Genitourinary: Denies any urinary and/or bowel problems Results & Data Vital Signs (Past 12 Hours) Vital Signs Temp Pulse Pulse Resp BP Pulse Ox 03/22/19 11:58 36.6 C 73 18 153/77 H 97 03/22/19 07:04 36.6 C 71 18 166/71 H 97 03/22/19 07:00 75 03/22/19 00:38 76 Laboratory Results Short CBC 03/22/19 Range/Units 06:01 WBC 6.55 (4.8-10.8) K/uL Hgb 11.6 L (12.0-16.0) g/dL Hct 33.5 L (37-47) % Plt Count 251 (130-400) K/uL BMP 03/22/19 06:01 Creatinine 0.99 Medications Administered Current Inpatient Medications Acetaminophen (Tylenol) 650 mg PO Q4H PRN PRN Reason: Pain or Fever Stop: 04/17/19 22:51 Amlodipine Besylate (Norvasc) 5 mg PO DAILY [facility] Stop: 04/18/19 08:59 Last Admin: 03/22/19 08:14 Dose: 5 mg Documented by: Citalopram Hydrobromide (Celexa) 20 mg PO DAILY [facility] Stop: 04/18/19 08:59 Last Admin: 03/22/19 08:15 Dose: 20 mg Documented by: Lorazepam (Ativan) 1 mg in 2 mls @ 0.5 mls/min IV Q10M PRN PRN Reason: seizures Stop: 04/17/19 22:51 Ceftriaxone Sodium 1,000 mg/ (Dextrose) 50 mls @ 100 mls/hr IV Q24H [facility]; Protocol Stop: 03/28/19 21:59 Last Infusion: 03/21/19 22:33 Dose: Infused Documented by: Levothyroxine Sodium (Synthroid) 100 mcg PO DAILYBB [facility] Stop: 04/18/19 06:29 Last Admin: 03/22/19 05:44 Dose: 100 mcg Documented by: Oxcarbazepine (Trileptal) 450 mg PO BID [facility] Stop: 04/20/19 20:59 Last Admin: 03/22/19 08:15 Dose: 450 mg Documented by: Oxycodone HCl (Roxicodone Immediate Rel) 5 mg PO Q4H PRN PRN Reason: Pain Stop: 04/01/19 22:51 Pantoprazole Sodium (Protonix) 40 mg PO BID [facility] Stop: 04/18/19 08:59 Last Admin: 03/22/19 08:15 Dose: 40 mg Documented by: Ranitidine HCl (Zantac) 150 mg PO BID [facility] Stop: 04/18/19 08:59 Last Admin: 03/22/19 08:14 Dose: 150 mg Documented by:
[2019-03-22] MEDS ORDERED: cephALEXin 250 MG CAP PO SCH (13:15)
--- NOTE | 2019-03-23 08:26 | Discharge Summary ---
Date of Service March 23, 2019 Admission HPI Per Admitting Provider 73-year-old female who presents to the ED after experiencing a seizure at home. History is currently unobtainable from the patient. History was obtained from patient's via the telephone. He reports that this evening, patient had a seizure in which she was shaking all over. He reports this lasted for about 10 to 15 minutes and then 30 minutes later, she developed another seizure. EMS was called and patient was brought to the ER for further evaluation. did not note any tongue biting, vomiting, loss of bowel or bladder control. He reports the patient has been compliant with her medications and there have been no medication changes recently. Reports she has been doing well recently, no recent illnesses, fevers, chills. In route to the hospital, patient had another seizure and received IV Ativan which broke the seizure. In the ER, patient is hemodynamically stable. Labs are unremarkable, head CT is negative for acute findings. Admission Exam Per Admitting Provider Constitutional: WD/WN, vitals as above no acute distress Eyes: PERRL, conjunctivae normal, anicteric sclerae ENMT: Ears: no external ear abnormality Nose: no external nose abnormality Mouth: + edentulous Respiratory: normal respiratory effort, lungs clear to auscultation Cardiovascular: Rate/Rhythm: regular rate and regular rhythm Vessels: normal peripheral pulses Extremities: no edema Gastrointestinal (Abdomen): normal bowel sounds, soft, nontender, no hepatosplenomegaly Musculoskeletal: no cyanosis or clubbing, extremities motor strength 5/5 Skin: no rashes, warm and dry Neurologic: Patient arouses to verbal stimuli however does not open eyes or follow commands Psychiatric: Orientation: + not alert and + not oriented x 3 Principal Diagnosis Breakthrough seizure-controlled, UTI, hypertension Discharge Exam Constitutional average body habitus Eyes PERRL, conjunctivae normal, anicteric sclerae ENMT external ear and nose normal, oropharynx normal Neck trachea midline, no thyromegaly Respiratory normal respiratory effort Auscultation: + diminished lung sounds; no crackles and no wheezes Cardiovascular Rate/Rhythm: regular rate and regular rhythm Heart Sounds: normal S1 and normal S2 Gastrointestinal (Abdomen) Inspection/Auscultation: abdomen normal to inspection and normal bowel sounds Percussion/Palpation: abdomen soft; abdomen nontender Discharge Data Allergies Allergy/AdvReac Type Severity Reaction Status Date / Time codeine Allergy Unknown Verified 03/18/19 19:42 Consultations 03/18/19 20:44 ED Decision to Admit Stat 03/19/19 09:16 Consult Neurology Routine Ordered Studies 03/18/19 18:52 CT head/brain wo con Stat 03/19/19 09:24 MR brain seizure wo con Stat Hospital Course (1) Seizure: Breakthrough seizure secondary to UTI Currently on oxcarbazepine CT head negative Brain MRI, no acute process Neurology consulted Dr. Hurtado input and recommendations Recommended to increase Trileptal to 450 mg twice daily No more seizures in hospital Patient has been ambulating without any difficulty She is ready to be discharged UTI Urine culture: E. coli-pansensitive Continue ceftriaxone IV Denies any urinary symptoms Resume oral Keflex to finish the course of antibiotic HTN (hypertension): Continue amlodipine Blood pressure seems to be well controlled. History of peptic ulcer: History of prepyloric ulcer with perforation. Continue ranitidine CKD (chronic kidney disease) stage 3, GFR 30-59 ml/min: Stable Hypothyroidism TSH 0.45 Continue levothyroxine. Dyslipidemia: Pravastatin discontinued due to muscular weakness Dementia: Somewhat confused as per family Continue to monitor Seems to be at her baseline Discussed with the family members and the patient-agreeable to be discharged tomorrow Depression: Bupropion discontinued- per Neuro, may lower seizure threshold Continue citalopram DVT prophylaxis SCDs Disposition Lives with family at home PT OT evaluation Distress this afternoon Total Time Total Time Spent Total Time Spent (In Minutes): 40 minutes Total Time Includes: Examination of the Patient, Discharge Planning, Medication Reconciliation and Communication With Other Providers Discharge Plan Discharge Items Patient Disposition: Home - Home Health Services Reason For Visit: ENCEPHALOPATHY,HTN URGENCY Discharge Diagnosis: Breakthrough seizure-controlled, UTI, hypertension Condition: Good Discharge Goals: Decrease discomfort, Improve function and Increase independence Activity: Resume your previous activity Activity Comment: Please take precautions to avoid falls Non-emergency contact: Primary Care Provider Call non-emergency contact if: you have any medication questions and your symptoms worsen Follow-up/Referrals: Art Joshi MD [Primary Care Provider] - 03/28/19 (Your appointment is with Dr. Aldana.) Ina Smith MD [Physician] - 04/15/19 8:00 am Diet: Heart Healthy Addtl Provider Instructions: Please take precautions to avoid falls Prescriptions: New oxcarbazepine 150 mg Tablet 450 mg PO BID 30 Days Qty: 180 RF: 0 cephalexin 250 mg Capsule 500 mg PO BID 3 Days Qty: 12 RF: 0 Continued amlodipine 5 mg Tablet 5 mg PO DAILY RF: 0 acetaminophen 500 mg Tablet 1,000 mg PO DIRECTED PRN (Reason: Fever Or Pain) RF: 0 levothyroxine 100 mcg Tablet 100 mcg PO DAILY RF: 0 ranitidine HCl 150 mg Tablet 150 mg PO BID RF: 0 omeprazole 20 mg Capsule,Delayed Release(Dr/Ec) 20 mg PO BID RF: 0 citalopram 20 mg tablet 20 mg PO DAILY RF: 0 bupropion HCl 300 mg tablet extended release 24 hr 300 mg PO DAILY RF: 0 cyanocobalamin (vitamin B-12) 1,000 mcg Tablet 1,000 mcg PO DAILY RF: 0 Discontinued oxcarbazepine 150 mg Tablet 300 mg PO DAILY RF: 0 oxcarbazepine 150 mg tablet 450 mg PO HS RF: 0 Stand-Alone Forms: [facility] Discharge Orders: Discharge Order (Routine); Ordered 03/22/19 Ordered By: Esvin Jones Admission Data Admit Date/Time: 03/18/19 22:51 Attending Provider: Esvin Jones Admit Provider: Miguelangel Nguyễn Primary Care Provider: Art Joshi Other Providers: Miguelangel Nguyễn ; Corona Quiles ; Ruel Tucker ; Home,Nursing Agency Service: Telemetry Medical Other Interventions: Discharge Summary Assessment (RN) Last Done: 03/22/19 13:55 DC Date/Time DO NOT enter until pt leaves facility: 03/22/19 14:25
== END 2019-03-22 14:25 | disposition home health service (06) | DRG 101 ==
LOC: ED 17:29 → 2W 22:51 → SUATTDRO 22:51 → 2W 23:17